=== PATIENT | female | born 1945 | race Caucasian/White ===

== ENCOUNTER 2018-06-04 17:10 | Emergency (ER) | payer OTHER, SELFPAY ==
[2018-06-04 17:15] VITALS: BP 157/76; PULSE 94; RESP 18; TEMP 36.5; O2SAT 98
--- NOTE | 2018-06-04 17:35 | DI.RAD_ITS ---
SYMPTOM/DIAGNOSIS: COUGH, SOB, ? PNEUMONIA FRONTAL AND LATERAL CHEST: No priors. Heart size and pulmonary vasculature are within normal limits. The lungs are clear. No effusion or pneumothorax is identified. There is a severe S type scoliosis of the thoracolumbar spine. IMPRESSION: No acute pulmonary process.
--- NOTE | 2018-06-04 17:36 | ED.GENADUL_ITS ---
Discharge Plan Disposition Patient Disposition: HOME Condition: Improving Discharge Details Chief Complaint: RespSymp Clinical Impression: Acute asthmatic bronchitis Primary Care Provider: Geeta Bridges ED Provider: Alina King Home Meds and New Rx's Prescriptions: New prednisone 20 mg tablet See Rx Instructions .ROUTE .COMPLEX Qty: 12 RF: 0 albuterol sulfate 90 mcg/actuation HFA aerosol inhaler 2 inh IH Q6H PRN (Reason: shortness of breath or wheezing) Qty: 8.5 RF: 0 albuterol sulfate 2.5 mg /3 mL (0.083 %) solution for nebulization 2.5 mg IH QID PRN (Reason: shortness of breath or wheezing) Qty: 75 RF: 0 Continued levothyroxine [Synthroid] 88 mcg Tablet 88 mcg PO DAILY RF: 0 hydrochlorothiazide 12.5 mg Tablet 12.5 mg PO DAILY RF: 0 colestipol 1 gram Tablet 2 g PO DAILY RF: 0 aspirin [Aspirin Low Dose] 81 mg Tablet,Delayed Release (Dr/Ec) 81 mg PO DAILY RF: 0 ibuprofen 600 mg Tablet 600 mg PO TID PRNRF: 0 Discontinued albuterol sulfate [Proventil HFA] 90 mcg/actuation Hfa Aerosol Inhaler 2 puff Inhalation Q4H PRNRF: 0 Discharge Instructions Instructions: Acute Bronchitis (ED) Additional Instructions: Use your albuterol inhaler as needed and directed for shortness of breath or wheezing. Take the steroids until finished. Follow-up with your primary care doctor in 3 days for reevaluation. Return immediately to the emergency department any worsening or new concerning symptoms. Discharge Data Discharge Physician: Alina King Medical Decision Making 72-year-old female with a history of asthma who presents for dry cough for the past week and an episode of shortness of breath with a coughing fit today. Heart rate 94, normal oxygen saturation, respiratory rate and afebrile. Patient appears nontoxic, speaking in full sentences. Scattered wheezing and rhonchi throughout. No accessory muscle use. Differential diagnosis includes bronchitis, asthma exacerbation, pneumonia. She denies any known fever, vomiting or diarrhea so doubt influenza and she received a flu shot. Will give a DuoNeb, p.o. steroids and obtain a chest x-ray. 1819 --chest x-ray negative. Patient admits to worsening shortness of breath after first neb treatment. She is speaking in full sentences, no accessory muscle use. Will give a 5 mg neb and reassess. 1910 --patient states she is feeling much better. Breath sounds improved. Patient is requesting to go home. She does not have a nebulizer machine at home. Will call sugar refinery supervisor to see if we can send patient home with a nebulizer machine to then return to the hospital. Will send home with prescription for albuterol solution, prednisone. Patient states she has plenty of albuterol inhaler at home. She is instructed to follow-up with primary care doctor for reevaluation and return here at any time if worse. Medical Records Medical records reviewed: Yes I reviewed the patient's medical records. Imaging Data Radiologic Study: Radiologist's impression: XR Chest, 2 Views EXAM DATE/TIME: 06/04/2018 6:04 PM FINDINGS: The cardiomediastinal silhouette and pulmonary vasculature are within normal limits. The lungs are clear. No pleural effusion or pneumothorax is identified. Severe scoliosis of the thoracic and lumbar spine. IMPRESSION: No acute process. HPI General Mode of arrival: ambulatory . Date/Time Provider Initiated Documentation: 06/04/18 17:15 . Limitations to Documentation: no limitations . Information obtained by: patient . HPI Narrative: Patient is a 70-year-old female with a history of asthma, hypertension, hyperlipidemia who presents for cough for the past week and episode of shortness of breath today. Patient states her cough was initially reductive and with chest congestion but now is dry. She admits to previously having a sore throat runny nose but states is now resolved. Patient states she had an episode today where she had a coughing fit and became short of breath. She admits to some mild shortness of breath at present. She states she did receive a flu shot this year. She denies any known fever, chest pain, recent antibiotics, vomiting or diarrhea. She has been using [id number] cough and cold medication as well as her inhaler without relief. Related Data Home Medications Medication Instructions Recorded Confirmed albuterol sulfate 2 inh IH Q6H PRN #8.5 gm 06/04/18 albuterol sulfate 2.5 mg IH QID PRN #75 ml 06/04/18 aspirin [Aspirin Low Dose] 81 mg PO DAILY 06/04/18 06/04/18 colestipol 2 g PO DAILY 06/04/18 06/04/18 hydrochlorothiazide 12.5 mg PO DAILY 06/04/18 06/04/18 ibuprofen 600 mg PO TID PRN 06/04/18 06/04/18 levothyroxine [Synthroid] 88 mcg PO DAILY 06/04/18 06/04/18 prednisone See Rx Instructions .ROUTE 06/04/18 .COMPLEX #12 tab Previous Rx's Medication Instructions Recorded albuterol sulfate 2 inh IH Q6H PRN #8.5 gm 06/04/18 albuterol sulfate 2.5 mg IH QID PRN #75 ml 06/04/18 prednisone See Rx Instructions .ROUTE 06/04/18 .COMPLEX #12 tab Allergies Allergy/AdvReac Type Severity Reaction Status Date / Time levothyroxine AdvReac Intermediate rapid Unverified 06/04/18 17:20 heart rate losartan AdvReac Mild dizziness Unverified 06/04/18 17:20 even at low dose General Stated Complaint: RespSymp ASHLEY: 3 Review of Systems Review of Systems All systems reviewed & are unremarkable except as noted in HPI and below Constitutional Reports as per HPI, Denies chills and Denies fever(s) Eyes Denies blurry vision ENT Denies dizziness, Denies sore throat and Denies throat swelling Cardiovascular Denies chest pain and Reports dyspnea Respiratory Reports cough and Reports dyspnea Gastrointestinal Denies abdominal pain, Denies diarrhea and Denies vomiting Genitourinary Denies hematuria and Denies dysuria Musculoskeletal Denies back pain and Denies numbness Integumentary/Breasts Denies lesions and Denies rash Neurologic Denies dizziness, Denies focal weakness and Denies numbness Allergic/Immunologic Denies throat swelling FOR[facility]LY [facility] Medical History Basal cell carcinoma (Acute) Hyperlipemia (Acute) Asthma (Chronic) HTN (hypertension) (Chronic) Surgical History History of bilateral tubal ligation (Acute) Hx of cholecystectomy (Chronic) Social History Smoking and Tabacco status: Never alcohol intake: current alcohol intake frequency: holidays/special occasions only substance use type: does not use Exam Const General: cooperative and healthy appearing Orientation: alert and awake HENNC Head: normal to inspection Ears: hearing grossly normal bilaterally, external ears normal and TM's normal bilaterally General nose exam: external nose normal Face and sinus: normal facial exam Mouth: oral mucosae normal Teeth and gingiva: dentition normal Throat: posterior oropharynx normal Eyes General: appearance normal, both eyes and all related structures Eyelids: eyelids normal EOM: EOM intact bilaterally Neck Neck: normal visual inspection Lymphatic: no lymphadenopathy noted Chest Chest: normal inspection of the chest Resp Effort & Inspection: normal respiratory effort and able to speak in complete sentences Auscultation: rhonchi upper bilaterally and lower bilaterally and wheezes lower bilaterally and upper bilaterally Cardio Rate: regular rate Rhythm: regular rhythm GI Inspection: normal to inspection Palpation: soft, not firm, no guarding, no hepatosplenomegaly, no masses and nontender Auscultation: normal bowel sounds Skin General skin exam: no rashes or lesions noted Neuro General: alert and awake Cognition: normal cognition Speech: speech normal Gait: normal gait Motor: muscle tone normal throughout Sensory Exam: no sensory deficits noted Extrem General: normal to inspection, full ROM, normal capillary refill and no edema Psych Appearance: grossly normal Mental Status: mental status grossly normal Speech and Movement: speech and movement normal Affect: normal affect Thought Process: normal Course Vital Signs Temperature 97.7 F 06/04/18 17:15 Pulse 94 H 06/04/18 17:15 Respiratory Rate 18 06/04/18 17:15 Blood Pressure 157/76 H 06/04/18 17:15 Pulse Oximetry 98 06/04/18 17:15 Temperature 97.7 F 06/04/18 17:15 Temperature Source Skin 06/04/18 17:15 Pulse 94 H 06/04/18 17:15 Respiratory Rate 18 06/04/18 17:15 Blood Pressure 157/76 H 06/04/18 17:15 Blood Pressure Position Sitting 06/04/18 17:15 Pulse Oximetry 98 06/04/18 17:15 Oxygen Delivery Method Room Air 06/04/18 17:15 Oxygen Flow Rate 0 06/04/18 17:15 Pain Level 7 06/04/18 17:15
[2018-06-04] MEDS: Albuterol/Ipratropium 3 ML UPD VIAL UPD (17:41)
[2018-06-04] MEDS: predniSONE 20 MG TAB 60 MG PO (17:41)
--- NOTE | 2018-06-04 18:11 | DI.VRAD_ITS ---
EXAM: XR Chest, 2 Views EXAM DATE/TIME: 06/04/2018 6:04 PM CLINICAL HISTORY: 72 years old, female; Signs and symptoms; Cough and shortness of breath; Patient HX: Cough, SOB; Additional info: R/O pneumonia TECHNIQUE: XR of the chest, 2 views. COMPARISON: No relevant prior studies available. FINDINGS: The cardiomediastinal silhouette and pulmonary vasculature are within normal limits. The lungs are clear. No pleural effusion or pneumothorax is identified. Severe scoliosis of the thoracic and lumbar spine. IMPRESSION: No acute process. Dictated and Authenticated by: Ivan Zhang MD. Ordering:LEIGH Fuller MD
[2018-06-04] MEDS: Albuterol 2.5 MG/3 ML INH SOLN VIAL 5 MG UPD (18:25)
[2018-06-04 19:26] VITALS: BP 153/67; PULSE 88; RESP 16; TEMP 36.7; O2SAT 100
== END 2018-06-04 19:46 | disposition home or self-care (01) ==
PROVIDERS: Emergency Provider Physician Assistant; PCP Family Medicine
DX: J44.0 Chronic obstructive pulmonary disease with (acute) lower respiratory infection (principal); J20.9 Acute bronchitis, unspecified; J45.909 Unspecified asthma, uncomplicated; R06.02 Shortness of breath; I10 Essential (primary) hypertension
CPT/HCPCS: 94640; 99285; 71046; J7512; J7613; J7620

== ENCOUNTER 2020-04-28 04:24 | Emergency (ER) | payer MEDICARE, BC, SELFPAY ==
[2020-04-28] VITALS (29 sets, daily range): BP systolic 123–140; BP diastolic 63–104; PULSE 65–91; RESP 11–36; TEMP 36.6; O2SAT 82–100
--- NOTE | 2020-04-28 04:15 | RT.EKG_ITS ---
APPROVED REPORT Exam: Resting ECG Patient Location: E HR:79 bpm ECG Measurements Heart Rate 79 AXIS MD 227 P 38 QRSd 137 QRS -28 QT 430 T 22 QTc 495 Conclusion Sinus rhythm...normal P axis, V-rate 60- 99 Prolonged MD interval...MD >220, V-rate 50- 90 Probable anterior infarct, age indeterminate...Q >35mS, T neg, V2-V5 Physician: Rate 79, sinus rhythm, RSR prime in V1, V4, V5. Inverted T waves in V3. No significant S T elevation or depression. No evidence of STEMI. No prior EKG for comparison
--- NOTE | 2020-04-28 04:40 | W.ED.GENAD ---
Discharge Plan Disposition Patient Disposition: HOME Condition: Good Discharge Details Clinical Impression: Heart palpitations Primary Care Provider: Geeta Bridges ED Provider: Brannon Richardson Home Meds and New Rx's Prescriptions: Continued levothyroxine [Synthroid] 88 mcg Tablet 88 mcg PO DAILY RF: 0 hydrochlorothiazide 12.5 mg Tablet 12.5 mg PO DAILY RF: 0 colestipol 1 gram Tablet 2 g PO DAILY RF: 0 aspirin [Aspirin Low Dose] 81 mg Tablet,Delayed Release (Dr/Ec) 81 mg PO Q OTHER DAY RF: 0 ibuprofen 600 mg Tablet 600 mg PO TID PRNRF: 0 albuterol sulfate 90 mcg/actuation HFA aerosol inhaler 2 inh IH Q6H PRN (Reason: shortness of breath or wheezing) Qty: 8.5 RF: 0 Vitamin D3 100 mcg (4,000 unit) Capsule 4,000 unit PO DAILY RF: 0 Discharge Instructions Instructions: Heart Palpitations (ED) Additional Instructions: At this time your work-up shows no significant abnormality however you are having regular premature ventricular contractions. We will place a heart monitor to help further evaluate this and evaluate for any other potential dysrhythmias. At this time your thyroid function, electrolytes, and other heart markers are within normal limits. We will place a cardiology referral for you, but this time may take some time for an opening. Please follow-up closely with your primary care provider in the meantime. If you notice any worsening of your symptoms, or any new symptoms such as vomiting, diarrhea, fever, chills, shortness of breath, chest pain, numbness, weakness, or fainting , please return immediately to the emergency department for reevaluation. Please follow up with your primary care provider as soon as possible for reassessment and reevaluation. As always, it was a pleasure participating in your medical care today. Referrals: Geeta Bridges [Primary Care Provider] - Landen Martin MD [MD CONSULTING PHYSICIAN] - Medical Decision Making 74-year-old female with a past medical history of hypothyroidism, asthma, hypertension, high cholesterol, presents today for evaluation of palpitations. The patient states that for the last 5 days she has had intermittent palpitations, usually lasting a minute, and happening multiple times throughout the day. She gets slightly short of breath when they occur, but has no chest pain or chest tightness. Her symptoms resolve when the palpitation resolves. She describes this as a large thump followed by a brief fluttering in her chest. She denies any arm neck or shoulder pain. She denies any syncope, change in her diet, change in caffeine intake, or any recent alcohol intake. She denies any previous history of cardiac disease. She denies any pleuritic chest pain, generalized exertional dyspnea, or exertional chest pain. She has no other complaints at this time. She denies any change of her symptoms with activity or rest. She states that she is more aware of the symptoms during the day, but they do occur at night as well. The patient's physical exam is notably unremarkable, no thyromegaly, no chest tenderness, and no evidence of dysrhythmia here in the ED at this time. EKG shows sinus rhythm, no evidence of STEMI. She does have a prolonged ID interval at 227, but no evidence that I can appreciate at this time of Brugada syndrome, epsilon wave, Dzbzb-Awayjjqve-Qyasu, or Wellens syndrome. We will monitor here closely, evaluate for electrolyte abnormalities, schedule the patient for Holter monitor, and reassess. 5:24 AM The patient's laboratory work-up is returned, no significant abnormalities, electrolytes are all within normal limits, renal function good, magnesium normal. Troponin normal, proBNP is normal suggesting no signs of significant cardiac strain. Thyroid function normal. During the patient stay here her palpitations did return, and on telemetry it appears that those were PVCs. Brief, no bigeminy or trigeminy. With the patient's work-up otherwise unremarkable, I do feel she can be discharged but does require prompt follow-up and Holter monitor placement. We will help schedule placement of this Holter monitor. We will place a referral for cardiology, as well as recommend close PCP follow-up. At this time there is no evidence of acute life-threatening etiology, dysrhythmia, or myocardial infarction. Discussed red flags which to return. I have extensively reviewed the treatment plan and discharge instructions with the patient. I have addressed all patient concerns at this time. The patient was made aware of what symptoms to monitor for that would warrant a return to the emergency department. Discussed the plan with the patient, they demonstrate verbal understanding and agreement with our assessment and plan at this time. The documentation in this chart was dictated using [employer] dictation software. Please excuse any dictation errors. EKG 4: 33 Rate 79, sinus rhythm, RSR prime in V1, V4, V5. Inverted T waves in V3. No significant ST elevation or depression. No evidence of STEMI. No prior EKG for comparison HPI General Date/Time Provider Initiated Documentation: 04/28/20 04:26. HPI Narrative: 74-year-old female with a past medical history of hypothyroidism, asthma, hypertension, high cholesterol, presents today for evaluation of palpitations. The patient states that for the last 5 days she has had intermittent palpitations, usually lasting a minute, and happening multiple times throughout the day. She gets slightly short of breath when they occur, but has no chest pain or chest tightness. Her symptoms resolve when the palpitation resolves. She describes this as a large thump followed by a brief fluttering in her chest. She denies any arm neck or shoulder pain. She denies any syncope, change in her diet, change in caffeine intake, or any recent alcohol intake. She denies any previous history of cardiac disease. She denies any pleuritic chest pain, generalized exertional dyspnea, or exertional chest pain. She has no other complaints at this time. She denies any change of her symptoms with activity or rest. She states that she is more aware of the symptoms during the day, but they do occur at night as well. Related Data Home Medications Medication Instructions Recorded Confirmed albuterol sulfate 2 inh IH Q6H PRN #8.5 gm 06/04/18 04/28/20 aspirin [Aspirin Low Dose] 81 mg PO Q OTHER DAY 06/04/18 04/28/20 colestipol 2 g PO DAILY 06/04/18 04/28/20 hydrochlorothiazide 12.5 mg PO DAILY 06/04/18 04/28/20 ibuprofen 600 mg PO TID PRN 06/04/18 04/28/20 levothyroxine [Synthroid] 88 mcg PO DAILY 06/04/18 04/28/20 Vitamin D3 4,000 unit PO DAILY 04/28/20 04/28/20 Previous Rx's Medication Instructions Recorded albuterol sulfate 2 inh IH Q6H PRN #8.5 gm 06/04/18 Allergies Allergy/AdvReac Type Severity Reaction Status Date / Time levothyroxine AdvReac Intermediate rapid Unverified 04/28/20 04:43 heart rate losartan AdvReac Mild dizziness Unverified 04/28/20 04:35 even at low dose General Stated Complaint: Palpitatns ASHLEY: 2 Review of Systems All systems reviewed & are unremarkable except as noted in HPI and below PFSH Medical History (Updated 04/28/20 @ 05:27 by Brannon Richardson DO) Asthma Basal cell carcinoma HTN (hypertension) Hyperlipemia Surgical History History of bilateral tubal ligation Hx of cholecystectomy Social History Smoking/Tobacco Use Status: Never Smoking risk assessment performed?: Yes Alcohol Intake: current Alcohol Intake frequency: holidays/special occasions only Substance use type: does not use Do you feel safe at home: Yes Do you feel safe in your relationship?: Yes Exam Narrative Exam Narrative: 1.Const: Well-nourished, Well-developed, appearing stated age 2.Eyes: PERRL, no conjunctival injection, and symmetrical lids. 3.ENT: Atraumatic external nose and ears. Moist MM. Neck: Symmetric, trachea midline, No thyromegaly. 4.CVS: +S1/S2, No murmurs or gallops. Peripheral pulses 2+ and equal in all extremities. Brisk capillary refill in all extremities. 5.RESP: Unlabored respiratory effort. Clear to auscultation bilaterally. No wheezes rales or rhonchi 6.GI: Soft, Nontender/Nondistended, No hepatosplenomegaly. No guarding or rebound. 7.MSK: Normocephalic/Atraumatic, Extremities w/o deformity or ttp No cyanosis or clubbing, Normal movement of all extremities 8.Skin: Warm, Dry. No rashes or lesions. 9.Neuro: master technician II-XII grossly intact. Sensation grossly intact, no focal neurologic deficits. 10.Psych: (AAO) x3. Appropriate mood and affect Course Vital Signs Vital signs: Vital Signs Temperature 36.6 C 04/28/20 04:27 Pulse 84 04/28/20 04:27 Respiratory Rate 20 04/28/20 04:27 Blood Pressure 123/104 H 04/28/20 04:27 Pulse Oximetry 99 04/28/20 04:27 Temperature 36.6 C 04/28/20 04:27 Pulse 84 04/28/20 04:27 Respiratory Rate 20 04/28/20 04:27 Blood Pressure 123/104 H 04/28/20 04:27 Pulse Oximetry 99 04/28/20 04:27 Oxygen Delivery Method Room Air 04/28/20 04:27 Oxygen Flow Rate 0 04/28/20 04:27 Pain Level 0 04/28/20 04:27
[2020-04-28 04:50] LABS: Abs Immature Grans 0.01 10^3/uL (0.0-0.06); Absolute Basophil Count 0.04 10^3/uL (0.0-0.2); Absolute Eosinophil Count 0.27 10^3/uL (0.0-0.7); Absolute Lymphocyte Count 2.92 10^3/uL (1.2-3.4); Absolute Monocyte Count 0.67 10^3/uL (0.1-0.8); Absolute Neutrophil Count 4.14 10^3/uL (1.2-6.7); Basophils % 0.5; Eosinophils % 3.4; HCT 41.2 % (36.0-46.0); HGB 13.2 g/dL (11.2-15.7); Immature Grans % 0.1; Lymphocytes % 36.3; MCH 29.4 pg (27.0-33.0); MCV 91.8 fL (80-95); MPV 10.1 fL (8.0-11.0); Monocytes % 8.3; Neutrophils % 51.4; Nucleated RBC 0 %; Platelet Count 267 10^3/uL (130-400); RBC 4.49 10^6/uL (3.93-5.22); RDW 12.9 % (11.7-14.6); RDW-SD 43.8 fL; WBC 8.05 10^3/uL (4.4-10.8)
[2020-04-28 05:07] LABS: ALT 24 U/L (14-59); AST 11 U/L (15-37); Albumin 3.4 g/dL (3.4-5.0); Alkaline Phosphatase 115 U/L (46-116); Anion Gap 6.1 mmol/L (3-11); BUN 14 mg/dL (7-18); Bilirubin, Total 0.4 mg/dL (0.2-1.0); CO2 28.9 mmol/L (21.0-32.0); CREATININE 0.9 mg/dL (0.55-1.02); Calcium 8.9 mg/dL (8.5-10.1); Chloride 102 mmol/L (98-107); Glucose 119 mg/dL (74-106); Magnesium 1.9 mg/dL (1.8-2.4); Potassium 3.6 mmol/L (3.5-5.1); Sodium 137 mmol/L (136-145); Total Protein 7.8 g/dL (6.4-8.2)
[2020-04-28 05:15] LABS: NT-proBNP 56 pg/mL (<300); TSH 2.14 uIU/mL (0.36-3.74)
[2020-04-28 05:17] LABS: Troponin I < 0.05 ng/mL (<0.06)
--- NOTE | 2020-04-28 05:35 | NUR.NOTE ---
sent referral to cardiology for frequent palpitations and pvc' s Rafi EDNamanda Note:
--- NOTE | 2020-04-28 07:15 | HOLTER_ITS ---
APPROVED REPORT Exam Type: HOLTER MONITOR APPLICATION Reason for Test: PALPITATIONS Patient Location: E Conclusion Is a 48-hour monitor ordered for indication of PVCs. The patient was in normal sinus rhythm for the majority the recording with an average heart rate of 7 5 bpm. There were rare PACs and rare PVCs. There were no episodes of ventricular tachycardia nor any episodes of supraventricular tachycardia. There are no episodes of atrial fibrillation, no pauses greater than 3 seconds and no evidence of hig h degree heart block. There were no patient triggered events.
== END 2020-04-28 08:08 | disposition home or self-care (01) ==
PROVIDERS: Emergency Provider Student in an Organized Health Care Education/Training Program; PCP Family Medicine
DX: R00.2 Palpitations (principal); I49.3 Ventricular premature depolarization
CPT/HCPCS: 36415; 80053; 93005; 99284; 83735; 83880; 84443; 84484; 85025; 93010; 93225

== ENCOUNTER 2020-04-28 07:03 | Outpatient (RCR) | payer MEDICARE, SELFPAY | END 2020-04-29 23:59 | disposition home or self-care (01) | LOC: RT 07:03 | PROVIDERS: PCP Family Medicine; Visit Provider Student in an Organized Health Care Education/Training Program | DX: R00.2 Palpitations (principal); I49.3 Ventricular premature depolarization; I49.1 Atrial premature depolarization | CPT/HCPCS: 93225; 93226 ==

== ENCOUNTER 2020-06-07 01:31 | Outpatient (CLI) | payer BC, SELFPAY ==
--- NOTE | 2020-06-07 07:00 | DI.RAD_ITS ---
EXAM: XR LUMBAR SPINE COMPLETE CLINICAL HISTORY: lumbar back pain,M54.16. TECHNIQUE: 2D digital imaging was performed. COMPARISON: No exams were available for comparison FINDINGS: There is a marked left convex scoliosis of the lumbar spine. Moderately severe degenerative changes are present throughout the lumbar spine with disc space narrowing, subchondral sclerosis and endplate osteophytes. No acute fracture is appreciated. Bones appear osteopenic. IMPRESSION: 1. Marked left convex scoliosis of the thoracolumbar spine. 2. Moderately severe degenerative changes in the lumbar spine. DATA REPOSITORY: RADIATION DOSE DELIVERED:
--- NOTE | 2020-06-07 07:00 | DI.RAD_ITS ---
EXAM: XR HIP RT COMPLETE AP PELVIS CLINICAL HISTORY: right hip pain,M25.551. TECHNIQUE: 2D digital imaging was performed. COMPARISON: No exams were available for comparison FINDINGS: BONES: No acute fracture is present. No bony destructive lesion is seen. JOINTS: In the hips, moderate degenerative changes are present with joint space narrowing and periart icular spurring present. Mild degenerative changes are seen at the sacroiliac joints. No dislocatio n is present. SOFT TISSUE: Normal. IMPRESSION: Moderate degenerative changes of the hips. DATA REPOSITORY: RADIATION DOSE DELIVERED:
== END 2020-06-07 01:51 ==
PROVIDERS: PCP Nurse Practitioner Family; Visit Provider Nurse Practitioner Family
DX: M41.85 Other forms of scoliosis, thoracolumbar region (principal); M47.816 Spondylosis without myelopathy or radiculopathy, lumbar region; M16.0 Bilateral primary osteoarthritis of hip
CPT/HCPCS: 72110; 73502

== ENCOUNTER 2020-07-25 03:29 | Outpatient (CLI) | payer MEDICARE, SELFPAY ==
[2020-07-25 12:47] LABS: Calculated LDL 161 mg/dL (<100); Cholesterol 248 mg/dL (<200); HDL Cholesterol 63 mg/dL (40-60); Triglyceride 123 mg/dL (<150)
[2020-07-25 12:58] LABS: Hemoglobin A1C 5.4 % (<5.7)
== END 2020-07-25 03:30 | disposition home or self-care (01) ==
PROVIDERS: PCP Nurse Practitioner Family; Visit Provider Nurse Practitioner Family
DX: E78.5 Hyperlipidemia, unspecified (principal); R73.09 Other abnormal glucose
CPT/HCPCS: 36415; 80061; 83036

== ENCOUNTER 2020-08-22 02:12 | Outpatient (CLI) | payer MEDICARE, SELFPAY ==
--- NOTE | 2020-08-22 10:14 | DI.US_ITS ---
APPROVED REPORT EXAM: Comprehensive 2D, Doppler, and color-flow Echocardiogram Patient Location: Out-Patient Infectious Disease Physician: Bobbi Frias RDCS (AE) Indications: Palpitations, HTN Other Information Study Quality: Adequate Conclusion Left Ventricle : The left ventricle is normal size. The left ventricular systolic function is normal. The left ventricular ejection fraction is within the normal range. There is normal left ventricular wall thickness. There is normal LV segmental wall motion. The left ventricular diastolic function is normal. LVEF is 58%. Right Ventricle : The right ventricle is normal size. The right ventricular systolic function is norm al. The RVSP is 22.4 mmHg. Atria : The left atrium size is normal. The right atrium size is normal. Valves: There are no hemodynamically significant valvular lesions. Great Vessels : The aortic root is normal in size. The ascending aorta is mildly dilated. Aortic arch is normal in caliber. IVC is normal in size and collapses >50% with inspiration. Please see remainder of study for further details. Wall motion Left Ventricle The left ventricle is normal size. The left ventricular systolic function is normal. The left ventric ular ejection fraction is within the normal range. There is normal left ventricular wall thickness. T here is normal LV segmental wall motion. The left ventricular diastolic function is normal. There is no ventricular septal defect visualized. LVEF is 58%. Right Ventricle The right ventricle is normal size. The right ventricular systolic function is normal. The RVSP is 22 .4 mmHg. Atria The left atrium size is normal. The right atrium size is normal. The interatrial septum is intact wit h no evidence for an atrial septal defect. Aortic Valve The aortic valve is normal in structure. Aortic valve is trileaflet. There is no aortic valvular sten osis. Trace aortic regurgitation. Mitral Valve The mitral valve is normal in structure. No evidence of mitral valve stenosis. Trace mitral regurgita tion. Tricuspid Valve The tricuspid valve is normal in structure. There is no tricuspid valve stenosis. Mild tricuspid regu rgitation. Pulmonic Valve The pulmonary valve is normal in structure. There is no pulmonic valvular stenosis. Trace pulmonic re gurgitation. Great Vessels The aortic root is normal in size. The ascending aorta is mildly dilated. Aortic arch is normal in ca liber. IVC is normal in size and collapses >50% with inspiration. Pericardium There is no pericardial effusion. 2D Dimensions IVSD d PLAX 1.04 cm F: 0.6-1.0 LV Vol A2C d MOD 85.8 mL LVPW d PLAX 1.03 cm F: 0.6 - 1.0 LV Vol A4C d MOD 98.5 mL LVID d PLAX 4.41 cm F: 3.8 - 5.2 LA vol/ BSA A2C s A-L 25.8 mL/m2 LVDs 3.10 cm F: 2.2 - 3.5 LA vol/ BSA A4C s A-L 20.8 mL/m2 Ao Root d 3.18 cm F: 2.7 - 3.3 LA Vol/ BSA Biplane s A-L 23.9 mL/m2 RA Area A4C 10.04 cm2 LA Area A4C s MOD 15.29 cm2 RA Vol/ BSA A4C s A-L 11.7 mL/m2 LA Area A2C s MOD 16.51 cm2 Ao Asc Diam d 3.32 cm F: 2.3 - 3.1 LV EF A4C MOD 58.2 % LV EF Teichholz 56.7 % LV EF A2C MOD 56.6 % LVEF (Woodward's) 57.20 % F: 54 - 74 LV EF Biplane MOD 57.2 % LV Volume 71.88 mL F: 46 - 106 SV 52.84 mL LV Volume Index 40.15 mL/m2 F: 29 - 61 SV Index 29.40 mL/m2 LV Vol Biplane MOD 92.4 mL FS 29.50 % M-Mode TAPSE 1.88 cm (M/F) >1.7 LV Diastology MV E' medial 0.066 (>0.07 m/s) E/A Ratio 0.7 LV E/e MED 8.55 (<14) MV E Vmax 0.56 (0.4-1.3 m/s) MV E' lateral 0.071 (>0.1 m/s) MV A Vmax 0.75 (0.4-1.3 m/s) LV E/e LAT 7.85 (<14) MV E/A Ratio 0.71 MV E/E' medial 8.56 MV E/E' lateral 7.85 Aortic Valve LVOT Area 3.37 cm2 AoV Area Vmax 2.65 cm2 LVOT Vmax 0.75 m/s AoV Area/ BSA (Vmax) 1.47 cm2/m2 LVOT Mean Kirt. 0.49 m/s MADI Mean Kirt. 2.14 cm2 LVOT Peak Grad 2.3 mmHg MADI Mean Kirt. Index 1.19 cm2/m2 LVOT Mean Grad 1.1 mmHg LVOT VTI 0.172 m LVOT Diam s 2.05 cm AoV Vmax 0.95 m/s Velocity Ratio 0.78 AoV Mean Kirt. 0.77 m/s AoV Peak Grad 3.6 mmHg LVOT SV 57.79 mL AoV Mean Grad 2.5 mmHg AoV VTI 0.230 m AoV Area VTI 2.51 cm2 AoV Area/ BSA (VTI) 1.39 cm/m2 Mitral Valve MV DT 276 (160-240 msec) MV PHT 80 msec MV Area PHT 2.75 cm2 MV VTI 0.248 m MV VTI Annulus 0.256 m MV Area VTI 2.41 (4.0-6.0 cm2) Pulmonary Valve PV Vmax 0.90 (0.5-1.5 m/s) RVOT Peak Gr. 1.55 mmHg PV Peak Grad 3.2 mmHg RVOT Mean Gr. 0.80 mmHg PV Mean Grad 1.7 mmHg RVOT VTI 0.132 m PV VTI 0.208 m RVOT Vmax 0.62 m/s Tricuspid Valve TR Peak Grad 19.3 mmHg TR Vmax 2.20 m/s RA Pressure 3.00 mmHg RVSP (TR) 22.4 mmHg
== END 2020-08-22 02:32 ==
PROVIDERS: PCP Nurse Practitioner Family; Visit Provider Internal Medicine Cardiovascular Disease
DX: R00.2 Palpitations (principal); I10 Essential (primary) hypertension; I77.810 Thoracic aortic ectasia
CPT/HCPCS: 93306

== ENCOUNTER → 2020-08-28 10:35 | Outpatient (BNVA) | payer MEDICARE, SELFPAY | PROVIDERS: PCP Nurse Practitioner Family; Referring Provider Family Medicine; Visit Provider Internal Medicine Cardiovascular Disease | DX: E78.41 Elevated Lipoprotein(a) (principal); E78.2 Mixed hyperlipidemia; I10 Essential (primary) hypertension; R00.2 Palpitations; D68.2 Hereditary deficiency of other clotting factors; Z79.899 Other long term (current) drug therapy | CPT/HCPCS: 99214 ==

== ENCOUNTER 2021-02-06 02:47 | Outpatient (CLI) | payer MEDICARE, SELFPAY ==
[2021-02-06 11:25] LABS: Calculated LDL 171 mg/dL (<100); Cholesterol 260 mg/dL (<200); HDL Cholesterol 57 mg/dL (40-60); Triglyceride 161 mg/dL (<150)
[2021-02-06 11:26] LABS: TSH 1.41 uIU/mL (0.36-3.74)
== END 2021-02-06 02:48 | disposition home or self-care (01) ==
LOC: LBO 02:47
PROVIDERS: PCP Nurse Practitioner Family; Visit Provider Nurse Practitioner Family
DX: E78.5 Hyperlipidemia, unspecified (principal); E03.9 Hypothyroidism, unspecified
CPT/HCPCS: 36415; 80061; 84443

== ENCOUNTER 2021-06-03 04:34 | Outpatient (CLI) | payer MEDICARE, SELFPAY ==
[2021-06-03 14:25] LABS: ESR 22 mm/hr (0-30); HCT 40.8 % (36.0-46.0); HGB 12.8 g/dL (11.2-15.7); MCH 28.8 pg (27.0-33.0); MCHC 31.4 % (32.0-36.0); MCV 91.7 fL (80-95); MPV 10.3 fL (8.0-11.0); Platelet Count 256 10^3/uL (130-400); RBC 4.45 10^6/uL (3.93-5.22); RDW 13.6 % (11.7-14.6); RDW-SD 46.2 fL
[2021-06-03 16:15] LABS: Folate 11.6 ng/mL (8.6-20.0)
[2021-06-04 14:55] LABS: Vitamin B12 243 pg/mL (193-986)
== END 2021-06-03 04:35 | disposition home or self-care (01) ==
LOC: LBO 04:34
PROVIDERS: PCP Nurse Practitioner Family; Visit Provider Nurse Practitioner Family
DX: R53.83 Other fatigue (principal); R53.1 Weakness
CPT/HCPCS: 36415; 85027; 85652; 82607; 82746

== ENCOUNTER → 2021-09-02 09:28 | Outpatient (BNVA) | payer MEDICARE, SELFPAY | PROVIDERS: PCP Nurse Practitioner Family; Referring Provider Nurse Practitioner Family; Visit Provider Internal Medicine Cardiovascular Disease | DX: I10 Essential (primary) hypertension (principal); E78.5 Hyperlipidemia, unspecified | CPT/HCPCS: 99213 ==

== ENCOUNTER → 2021-09-02 13:22 | Outpatient (BNVA) | payer MEDICARE, SELFPAY | PROVIDERS: PCP Nurse Practitioner Family; Referring Provider Nurse Practitioner Family; Visit Provider Psychiatry & Neurology Neurology | DX: R55 Syncope and collapse (principal) | CPT/HCPCS: 99214; 99213 ==

== ENCOUNTER 2021-12-11 01:42 | Outpatient (CLI) | payer MEDICARE, SELFPAY ==
[2021-12-11 11:10] LABS: TSH (W/Ref FT4) 2.22 uIU/mL (0.36-3.74)
== END 2021-12-11 01:43 | disposition home or self-care (01) ==
LOC: LBO 01:42
PROVIDERS: PCP Nurse Practitioner Family; Visit Provider Nurse Practitioner Family
DX: E03.9 Hypothyroidism, unspecified (principal)
CPT/HCPCS: 36415; 84443

== ENCOUNTER 2022-04-29 01:28 | Outpatient (CLI) | payer MEDICARE, SELFPAY ==
--- NOTE | 2022-04-29 07:00 | DI.RAD_ITS ---
Exam(s) XR FINGER LT RING EXAM: XR FINGER LT RING EXAM DATE/TIME: CLINICAL HISTORY: continued pain/swelling of DIP joint,m79.645. TECHNIQUE: 2D digital imaging was performed of the left finger. Three views were obtained. PA/AP, oblique, and lateral views were obtained. COMPARISON: None. FINDINGS: BONES: No acute fracture is present. No bony destructive lesion is seen. JOINTS: No dislocation is present. There are degenerative changes seen of the left ring finger at th e DIP joint with joint space narrowing present. Mild bony hypertrophy is also noted. SOFT TISSUE: No soft tissue calcifications are seen. IMPRESSION: Degenerative changes of the left ring finger. DATA REPOSITORY: RADIATION DOSE DELIVERED:
== END 2022-04-29 01:48 ==
PROVIDERS: PCP Nurse Practitioner Family; Visit Provider Nurse Practitioner Family
DX: M79.645 Pain in left finger(s) (principal); M19.042 Primary osteoarthritis, left hand
CPT/HCPCS: 73140

== ENCOUNTER 2022-05-09 08:44 | Day surgery (SDC) | payer MEDICARE, SELFPAY ==
[2022-05-09 09:07] VITALS: BP 146/70; PULSE 75; RESP 16; TEMP 36.2; O2SAT 100
[2022-05-09] MEDS: Tropicam./Phenyleph. (1/2.5%) 5 ML BTL OS ×3 (09:14→09:28)
--- NOTE | 2022-05-09 09:22 | ANES.PREOP_ITS ---
General Info Date of Service Date Performed: 05/16/22 Height: 5 ft Weight: 83.3 kg Body Mass Index (BMI): 35.9 Surgical Procedure: Operation Date: 05/09/22 11:40 Proposed Procedure Side Surgeon p Cataract Extraction with IOL Implant Left Franklin Ramirez MD Meds Allergies and Home Medications Allergies Allergy/AdvReac Type Severity Reaction Status Date / Time adhesive tape Allergy Unknown skin Verified 05/09/22 09:03 blisters atorvastatin AdvReac Intermediate muscles Verified 05/09/22 09:03 aches levothyroxine AdvReac Intermediate rapid Verified 05/09/22 09:03 heart rate rosuvastatin AdvReac Intermediate muscle Verified 05/09/22 09:03 aches losartan AdvReac Mild dizziness Verified 05/09/22 09:03 even at low dose acetaminophen [From Tylox] AdvReac Unknown severe Verified 05/09/22 09:03 stomach cramping oxycodone [From Tylox] AdvReac Unknown severe Verified 05/09/22 09:03 stomach cramping Generic Statins AdvReac Unknown severe Uncoded 05/07/22 13:21 stomach cramps/muscle aches/stiff joints Home Medication Medication Instructions Recorded cholecalciferol (vitamin D3) 100 4,000 unit PO DAILY 04/28/20 mcg (4,000 unit) capsule (Vitamin D3) fluocinonide 0.05 % topical cream 1 applic topical BID 05/28/20 aspirin 81 mg tablet,delayed 81 mg PO Q OTHER DAY 06/19/20 release loperamide 2 mg tablet (Imodium 1 mg PO DAILY PRN 06/19/20 A-D) omeprazole 20 mg tablet,delayed 20 mg PO DAILY 06/19/20 release clobetasol 0.05 % topical gel 1 applic topical .twice weekly 08/28/20 colestipol 1 gram tablet 2 g PO DAILY 08/28/20 acetaminophen 300 mg-codeine 15 mg 1 tab PO BID PRN pain #10 tabs 08/07/21 tablet albuterol sulfate 90 mcg/actuation 2 puff inhalation Q4H PRN 10/22/21 aerosol inhaler (ProAir HFA) bronchospasm #8.5 grams ibuprofen 600 mg tablet 600 mg PO TID PRN fever or pain 10/22/21 #60 tabs levothyroxine 88 mcg tablet 88 mcg PO DAILY #90 tabs 12/04/21 (Synthroid) hydrochlorothiazide 12.5 mg tablet 12.5 mg PO DAILY #90 tabs 05/07/22 lisinopril 5 mg tablet 5 mg PO DAILY #90 tabs 05/07/22 Current Visit Medications: Current Medications Generic Name Dose Route Start Last Admin Trade Name Freq PRN Reason Stop Dose Admin Miscellaneous Medication 0 ml 05/09/22 06:00 05/09/22 09:14 Tropicam./Phenyleph. 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 Personal history of colonic polyps ~11/18/18 Z86.010 Spondylosis of lumbar region without myelopathy or radiculopathy ~09/07/18 M47.816 Seborrhea ~08/01/18 L21.9 Left thyroid nodule ~09/02/17 E04.1 Thoracogenic scoliosis of thoracic region ~08/04/17 M41.34 Spinal stenosis of lumbar region with neurogenic claudication ~08/04/17 M48.062 Diverticulosis of large intestine without hemorrhage ~08/04/17 K57.30 Rectocele ~08/19/11 N81.6 HTN (hypertension) ~07/06/18 I10 Medical History Medical History Abnormal mammogram of left breast (~08/18/18) Asthma Basal cell carcinoma (~08/01/18) Factor V Leiden Full incontinence of feces (~09/22/17) History of vertigo (~09/02/17) Lichen sclerosus Pill dysphagia (~11/18/18) Retention cyst of tonsil (~04/22/18) Surgical History Surgical History H/O basal cell carcinoma excision (~1991) right arm 1992 left upper chest 12/2010 H/O colonoscopy (~2016) [facility] [place] [facility] 09/15/07 H/O rectocele repair (~09/26/11) H/O total hysterectomy with bilateral salpingo-oophorectomy (BSO) (~09/26/11) History of bilateral tubal ligation (~1976) History of esophagogastroduodenoscopy (EGD) (~01/10/19) Dr. Ferro History of surgical removal of ganglion cyst (~1994) Hx of biopsy (~2011) thyroid nodule Hx of cholecystectomy (~1967) Status post cervical polyp removal (~2011) 2004 and 2011 Tobacco Smoking/Tobacco Use Status: Never Passive smoking exposure: Yes Second hand exposure: Yes Alcohol Alcohol Intake: current Alcohol intake frequency: holidays/special occasions only Alcohol type: wine Substance Use Substance use: Never Substance use type: does not use Vital Signs and Lab Results Vital Signs Most Recent Vital Signs in EMR: Most Recent Vital Signs Temp Pulse Resp BP Pulse Ox 36.2 C L 75 16 146/70 H 100 05/09/22 09:07 05/09/22 09:07 05/09/22 09:07 05/09/22 09:07 05/09/22 09:07 Lab Results Blood Type / Crossmatch: No Data to Display Complete Blood Count: No Data to Display Complete Metabolic Panel: No Data to Display Liver Function Panel: No Data to Display Coagulation Panel: No Data to Display Cardiac Panel: No Data to Display Arterial Blood Gas: No Data to Display Venous Blood Gas: No Data to Display Pancreas Panel: No Data to Display Thyroid Panel: No Data to Display Infectious Disease: No Data to Display Blood Cultures: No Data to Display Toxicology Panel: No Data to Display Imaging and Studies Imaging and Studies Study information below may be from another EMR and interpreted by another provider. Please see original notes in EMR for more complete details. EKG Summary: 04/19 Conclusion Sinus rhythm...normal P axis, V-rate 60- 99 Prolonged WY interval...WY >220, V-rate 50- 90 Probable anterior infarct, age indeterminate...Q >35mS, T neg, V2-V5 Echocardiogram Summary: 08/17 Conclusion Left Ventricle : The left ventricle is normal size. The left ventricular systolic function is normal. The left ventricular ejection fraction is within the normal range. There is normal left ventricular wall thickness. There is normal LV segmental wall motion. The left ventricular diastolic function is normal. LVEF is 58%. Right Ventricle : The right ventricle is normal size. The right ventricular systolic function is normal. The RVSP is 22.4 mmHg. Atria : The left atrium size is normal. The right atrium size is normal. Valves: There are no hemodynamically significant valvular lesions. Great Vessels : The aortic root is normal in size. The ascending aorta is mildly dilated. Aortic arch is normal in caliber. IVC is normal in size and collapses >50% with inspiration. Please see remainder of study for further details. Wall motion Anesthesia Assessment and Plan Anesthesia History Personal History: No History of Anesthesia Complications Family History: No Family History of Anesthesia Complications Exercise Tolerance Exercise Tolerance: Metabolic Equivalents>4 Pertinent Negatives Pertinent Negatives: No Symptoms of GERD (med controlled), No Major Cardiovascular Symptoms or Complaints and No Major Pulmonary Symptoms or Complaints Cardiac & Pulmonary Exam Cardiac Exam: Normal S1/S2 Heart Sounds Pulmonary Exam: Clear Bilateral Breath Sounds Implantable Cardiac Device Does patient have a Pacemaker or an ICD?: No Airway Exam Known Difficult Airway: No Mallampati Class: 1 Mouth Opening: Normal (> 3cm) Thyromental Distance: Greater than 3 cm Neck Range of Motion: Full ROM Neck Circumference: Normal Teeth Condition: Normal Dentition and Removable Dentures/Plates Upper ASA Classification ASA Score: ASA 2 Emergency Case?: No NPO Status NPO Status: NPO Clears >2 hours, Solids >8 hours Anesthesia Plan Resuscitation Status: Full Code Anesthesia Technique: MAC Anesthesia Airway Planned: Natural Airway Monitors Used: Standard Monitors
[2022-05-09 09:33] VITALS: BMI 35.9
[2022-05-09] MEDS: Tetracaine 0.5% 4 ML BTL OS (10:32)
[2022-05-09] MEDS: Duovisc Viscoelastic System EACH 1 EACH (10:33)
[2022-05-09] MEDS: Balanced Salt Soln.-PLUS 500 ML BAG (10:33)
[2022-05-09] MEDS: Lidocaine 1% Pres-Free 5 ML VIAL (10:34)
[2022-05-09] MEDS: Lidocaine 2% Jelly 6 ML SYR (10:34)
[2022-05-09] MEDS: Povidone-Iodine Ophth 30 ML BTL (10:35)
[2022-05-09 10:50] VITALS: BP 137/65; PULSE 62; RESP 18; TEMP 36.5; O2SAT 100
--- NOTE | 2022-05-09 10:52 | W.PM.DSUDISC ---
Date of service: 05/09/22 Time of Service: 10:52 Discharge Plan Disposition Patient Disposition: Home Discharge Details Attending Provider: Franklin Ramriez Primary Care Provider: Chacho Lion Home Meds and New Rx's Prescriptions: No Action colestipol 1 gram tablet 2 g PO DAILY levothyroxine [Synthroid] 88 mcg tablet 88 mcg PO DAILY Qty: 90 3RF fluocinonide 0.05 % cream 1 applic topical BID clobetasol 0.05 % gel 1 applic topical .twice weekly acetaminophen-codeine 300-15 mg tablet 1 tab PO BID PRN (Reason: pain) Qty: 10 0RF omeprazole 20 mg tablet,delayed release (DR/EC) 20 mg PO DAILY loperamide [Imodium A-D] 2 mg tablet 1 mg PO DAILY PRN aspirin 81 mg tablet,delayed release (DR/EC) 81 mg PO Q OTHER DAY ibuprofen 600 mg tablet 600 mg PO TID PRN (Reason: fever or pain) Qty: 60 0RF albuterol sulfate [ProAir HFA] 90 mcg/actuation HFA aerosol inhaler 2 puff inhalation Q4H PRN (Reason: bronchospasm) Qty: 8.5 3RF Rx Instructions: every 4 to 6 hours hydrochlorothiazide 12.5 mg tablet 12.5 mg PO DAILY Qty: 90 3RF Hold Instructions: Feeling weak and woozy. Holding trial until 05/05/22. lisinopril 5 mg tablet 5 mg PO DAILY Qty: 90 3RF Vitamin D3 100 mcg (4,000 unit) Capsule 4,000 unit PO DAILY Discharge Instructions Stand Alone Forms: Post-op Topical CataractEstephania (DSU) Discharge Orders Discharge Orders: Discharge Order (Routine); Ordered 05/09/22 Ordered By: Franklin Ramirez DS: Diagnosis Discharge Diagnosis (1) Cortical cataract of left eye: Status: Resolved
--- NOTE | 2022-05-09 10:53 | ROE_ITS ---
Date of service: 05/09/22 Time of Service: 10:53 Operative Note Operative Note DATE OF PROCEDURE: 05/09/22 PRE-OP DIAGNOSIS: Cortical cataract, left eye POST-OP DIAGNOSIS: same PROCEDURE: Cataract extraction using phacoemulsification with intraocular lens implant, left eye SURGEON: Franklin Ramirez ANESTHESIA TYPE: Local By Surgeon and MAC Refer to Anesthesia Record PATHOLOGY: none sent COMPLICATIONS: None Patient was transported to: same day Patient's condition: stable Implants: Elias Clareon [id number] Indications: Progressive decreased vision due to cataract, left eye Procedure Description: CATARACT SURGERY OPERATIVE REPORT PREOPERATIVE DIAGNOSIS: Cortical cataract, left eye POSTOPERATIVE DIAGNOSIS: Same OPERATION: Cataract extraction using phacoemulsification with posterior chamber intraocular lens implant, left eye. IOL: IOL Manager Instrumentation/Model: Elias Clareon [id number] IOL Power: + 24.0 diopters IOL Serial Number: [id number] Optic Diameter: 6.0mm Haptic/Overall Diameter: 13.0mm PHACO INFO: Elias Offerialurion Vision System with OZil and Active Fluidics Cumulative Dispersed Energy (CDE): 11.15 seconds SURGEON: Franklin Ramirez MD, SONY ANESTHESIA: Monitored Anesthesia Care (MAC), with local sub-tenon's anesthetic infiltration COMPLICATIONS: None SPECIMENS: None INDICATIONS FOR PROCEDURE: The patient is a 76-year-old lady with history of diminished visual acuity in her left eye secondary to the development of significant cortical cataract. The option of cataract surgery was offered to the patient and she felt that her vision was significantly declined that she wished to proceed with cataract surgery of the left eye. PROCEDURE: The correct surgical eye was identified and marked as the left eye and the pupil was dilated in the preoperative area using mydriatics and cycloplegics. The dilated pupil size was 7.0 mm. The patient elected to proceed without oral sedation. The patient was brought to the operating room where cardiopulmonary monitoring was instituted and surgical time-out was performed, confirming the correct operative eye and IOL power. Topical anesthesia was administered and ophthalmic povidone-iodine 5% was instilled into the conjunctival fornices. Lidocaine gel was applied to the cornea and the shruthi-ocular area was prepped with Betadine 10% solution and draped in the usual sterile fashion for intraocular surgery, including an aperture drape. A Tegaderm transparent film dressing was cut in half and used to cover the lashes and lid margins. Care was taken to sequester the lashes and lid margins under the Tegaderm dressing. A lid speculum was placed between the lids of the operative eye and the Elias LuxOR Revalia operating microscope was maneuvered into position. Yomaira scissors were then used to make a conjunctival buttonhole approximately 6mm posterior to the limbus in the inferonasal quadrant. Blunt dissection was carried out to expose bare sclera, and a blunt-tipped sub-tenon?s anesthesia cannula was introduced and passed posteriorly along the globe where non- preserved plain lidocaine was injected into posterior sub-Tenon?s space. A sideport knife was used to make a paracentesis port superior/superiortemporally. Intraocular phenylephrine/lidocaine was injected into the anterior chamber. The anterior chamber was then filled with viscoelastic. A keratome knife was used construct a two-plane near-clear corneal tunnel extending 2.0mm into clear cornea in the temporal position. . A flap was raised on the anterior capsule and capsulorhexis forceps were used to complete a continuous curvilinear capsulorhexis of 5.0 mm. Balanced salt solution was then used to perform cortical cleaving hydrodissection and nuclear hydrodelineation until the lens could be freely rotated within the capsular bag. The lens nucleus was then disassembled and removed within the capsular bag and iris plane using phacoemulsification. Residual cortical material was removed using the 45-degree angled silicone I/A tip with 0.3mm port. The posterior capsule was carefully polished to remove as much residual lens epithelial cells as safely possible. The capsular bag was then inflated and the anterior chamber deepened with viscoelastic. The lens implant described above was inserted into the capsular bag using the Elias Autonome Injector. A Kuglen hook was used to dial the IOL into position. Residual viscoelastic was then removed first from posterior to the IOL, then from the anterior chamber using the I/A handpiece. The lens implant was noted to center nicely within the capsular bag. The incisions were stromally hydrated, and the anterior chamber was reformed using BSS. Then 0.5cc of moxifloxacin 1.0mg/ml were injected into the capsular bag and anterior chamber. The incisions were checked with a Weck spear and found to be secure. Several drops of ophthalmic povidone-iodine 5% were then applied to the eye followed by two drops of Imprimis combination prednisolone/moxifloxacin/nepafenac solution. The drapes were removed and a clear plastic protective eye shield was placed over the eye. The patient was then returned to Same Day Surgery in stable condition.
--- NOTE | 2022-05-09 11:07 | W.ANESPOSTOP ---
Postoperative Evaluation Date, Time and Location Date Performed: 05/09/22 Time Performed: 10:50 Patient Location: Day Surgery Unit Vital Signs Most Recent Imported Vital Signs: Most Recent Vital Signs Temp Pulse Resp BP Pulse Ox 36.5 C 62 18 137/65 100 05/09/22 10:50 05/09/22 10:50 05/09/22 10:50 05/09/22 10:50 05/09/22 10:50 Pain Score Most Recent Pain Score: Most Recent Pain Score Pain Level 0 05/09/22 10:50 Assessment Mental Status: Awake (Alert & Oriented to Patient Baseline) Airway and Respiratory Function: Patent airway with normal (patient baseline) respiratory exam Cardiovascular Function: Hemodynamically Stable Hydration Status: Adequately Hydrated Nausea & Vomiting: No Nausea or Vomiting Pain: Pt. Denies Any Pain Peripheral Nerve Block: Patient did not receive a nerve block
== END 2022-05-09 11:30 | disposition home or self-care (01) ==
LOC: SUR 08:44
PROVIDERS: PCP Nurse Practitioner Family; Visit Provider Ophthalmology
PROC: (CPT 66984; principal; 2022-05-09 11:30)
DX: H25.012 Cortical age-related cataract, left eye (principal)
CPT/HCPCS: 66984; V2632

== ENCOUNTER 2022-05-16 06:22 | Day surgery (SDC) | payer MEDICARE, SELFPAY ==
[2022-05-16 06:24] VITALS: BP 139/70; PULSE 65; RESP 16; TEMP 36.3; O2SAT 99
--- NOTE | 2022-05-16 06:47 | W.ANESPRE ---
General Info Date of Service Date Performed: 05/16/22 Height: 6 ft 11.5 in Weight: 60 kg Body Mass Index (BMI): 13.3 Surgical Procedure: Operation Date: 05/16/22 07:40 Proposed Procedure Side Surgeon p Cataract Extraction with IOL Implant Right Franklin Ramirez MD Meds Allergies and Home Medications Allergies Allergy/AdvReac Type Severity Reaction Status Date / Time adhesive tape Allergy Unknown skin Verified 05/16/22 06:33 blisters atorvastatin AdvReac Intermediate muscles Verified 05/16/22 06:33 aches levothyroxine AdvReac Intermediate rapid Verified 05/16/22 06:33 heart rate rosuvastatin AdvReac Intermediate muscle Verified 05/16/22 06:33 aches losartan AdvReac Mild dizziness Verified 05/16/22 06:33 even at low dose acetaminophen [From Tylox] AdvReac Unknown severe Verified 05/16/22 06:33 stomach cramping oxycodone [From Tylox] AdvReac Unknown severe Verified 05/16/22 06:33 stomach cramping Generic Statins AdvReac Unknown severe Uncoded 05/14/22 14:48 stomach cramps/muscle aches/stiff joints Home Medication Medication Instructions Recorded cholecalciferol (vitamin D3) 100 4,000 unit PO DAILY 04/28/20 mcg (4,000 unit) capsule (Vitamin D3) fluocinonide 0.05 % topical cream 1 applic topical BID 05/28/20 aspirin 81 mg tablet,delayed 81 mg PO Q OTHER DAY 06/19/20 release loperamide 2 mg tablet (Imodium 1 mg PO DAILY PRN 06/19/20 A-D) omeprazole 20 mg tablet,delayed 20 mg PO DAILY 06/19/20 release clobetasol 0.05 % topical gel 1 applic topical .twice weekly 08/28/20 colestipol 1 gram tablet 2 g PO DAILY 08/28/20 acetaminophen 300 mg-codeine 15 mg 1 tab PO BID PRN pain #10 tabs 08/07/21 tablet albuterol sulfate 90 mcg/actuation 2 puff inhalation Q4H PRN 10/22/21 aerosol inhaler (ProAir HFA) bronchospasm #8.5 grams ibuprofen 600 mg tablet 600 mg PO TID PRN fever or pain 10/22/21 #60 tabs levothyroxine 88 mcg tablet 88 mcg PO DAILY #90 tabs 12/04/21 (Synthroid) hydrochlorothiazide 12.5 mg tablet 12.5 mg PO DAILY #90 tabs 05/07/22 lisinopril 5 mg tablet 5 mg PO DAILY #90 tabs 05/07/22 Current Visit Medications: Current Medications Generic Name Dose Route Start Last Admin Trade Name Freq PRN Reason Stop Dose Admin Miscellaneous Medication 0 ml 05/16/22 06:00 Tropicam./Phenyleph. 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 Personal history of colonic polyps ~11/18/18 Z86.010 Spondylosis of lumbar region without myelopathy or radiculopathy ~09/07/18 M47.816 Seborrhea ~08/01/18 L21.9 Left thyroid nodule ~09/02/17 E04.1 Thoracogenic scoliosis of thoracic region ~08/04/17 M41.34 Spinal stenosis of lumbar region with neurogenic claudication ~08/04/17 M48.062 Diverticulosis of large intestine without hemorrhage ~08/04/17 K57.30 Rectocele ~08/19/11 N81.6 HTN (hypertension) ~07/06/18 I10 Medical History Medical History Abnormal mammogram of left breast (~08/18/18) Asthma Basal cell carcinoma (~08/01/18) Factor V Leiden Full incontinence of feces (~09/22/17) History of vertigo (~09/02/17) Lichen sclerosus Pill dysphagia (~11/18/18) Retention cyst of tonsil (~04/22/18) Surgical History Surgical History H/O basal cell carcinoma excision (~1991) right arm 1991 left upper chest 12/2010 H/O colonoscopy (~2016) [facility] 09/15/07 H/O rectocele repair (~09/26/11) H/O total hysterectomy with bilateral salpingo-oophorectomy (BSO) (~09/26/11) History of bilateral tubal ligation (~1976) History of esophagogastroduodenoscopy (EGD) (~01/10/19) Dr. Ferro History of surgical removal of ganglion cyst (~1994) Hx of biopsy (~2011) thyroid nodule Hx of cholecystectomy (~1967) Status post cervical polyp removal (~2011) 2004 and 2011 Tobacco Smoking/Tobacco Use Status: Never Passive smoking exposure: Yes Second hand exposure: Yes Alcohol Alcohol Intake: current Alcohol intake frequency: holidays/special occasions only Alcohol type: wine Substance Use Substance use: Never Substance use type: does not use Vital Signs and Lab Results Vital Signs Most Recent Vital Signs in EMR: Most Recent Vital Signs Temp Pulse Resp BP Pulse Ox 36.3 C L 65 16 139/70 99 05/16/22 06:24 05/16/22 06:24 05/16/22 06:24 05/16/22 06:24 05/16/22 06:24 Lab Results Blood Type / Crossmatch: No Data to Display Complete Blood Count: No Data to Display Complete Metabolic Panel: No Data to Display Liver Function Panel: No Data to Display Coagulation Panel: No Data to Display Cardiac Panel: No Data to Display Arterial Blood Gas: No Data to Display Venous Blood Gas: No Data to Display Pancreas Panel: No Data to Display Thyroid Panel: No Data to Display Infectious Disease: No Data to Display Blood Cultures: No Data to Display Toxicology Panel: No Data to Display Imaging and Studies Imaging and Studies Study information below may be from another EMR and interpreted by another provider. Please see original notes in EMR for more complete details. EKG Summary: 04/19 Conclusion Sinus rhythm...normal P axis, V-rate 60- 99 Prolonged MO interval...MO >220, V-rate 50- 90 Probable anterior infarct, age indeterminate...Q >35mS, T neg, V2-V5 Echocardiogram Summary: 08/17 Conclusion Left Ventricle : The left ventricle is normal size. The left ventricular systolic function is normal. The left ventricular ejection fraction is within the normal range. There is normal left ventricular wall thickness. There is normal LV segmental wall motion. The left ventricular diastolic function is normal. LVEF is 58%. Right Ventricle : The right ventricle is normal size. The right ventricular systolic function is normal. The RVSP is 22.4 mmHg. Atria : The left atrium size is normal. The right atrium size is normal. Valves: There are no hemodynamically significant valvular lesions. Great Vessels : The aortic root is normal in size. The ascending aorta is mildly dilated. Aortic arch is normal in caliber. IVC is normal in size and collapses >50% with inspiration. Please see remainder of study for further details. Wall motion Anesthesia Assessment and Plan Anesthesia History Personal History: No History of Anesthesia Complications Family History: No Family History of Anesthesia Complications Exercise Tolerance Exercise Tolerance: Metabolic Equivalents>4 Pertinent Negatives Pertinent Negatives: No Major Pulmonary Symptoms or Complaints and No History of CVA/TIA Cardiac & Pulmonary Exam Cardiac Exam: Normal S1/S2 Heart Sounds Pulmonary Exam: Clear Bilateral Breath Sounds Implantable Cardiac Device Does patient have a Pacemaker or an ICD?: No Airway Exam Known Difficult Airway: No Mallampati Class: 1 Mouth Opening: Normal (> 3cm) Thyromental Distance: Greater than 3 cm Neck Range of Motion: Full ROM Neck Circumference: Normal Teeth Condition: Normal Dentition and Removable Dentures/Plates Upper ASA Classification ASA Score: ASA 3 Emergency Case?: No NPO Status NPO Status: NPO Clears >2 hours, Solids >8 hours Anesthesia Plan Resuscitation Status: Full Code Anesthesia Technique: MAC Anesthesia Airway Planned: Natural Airway Monitors Used: Standard Monitors Preoperative Comments:: No MKO
[2022-05-16] MEDS: Tropicam./Phenyleph. (1/2.5%) 5 ML BTL OD ×3 (06:48→06:58)
[2022-05-16 06:49] VITALS: BMI 13.3
[2022-05-16] MEDS: Balanced Salt Soln.-PLUS 500 ML BAG (07:38)
[2022-05-16] MEDS: Duovisc Viscoelastic System EACH 1 EACH (07:39)
[2022-05-16] MEDS: Povidone-Iodine Ophth 30 ML BTL (07:39)
[2022-05-16] MEDS: Lidocaine 2% Jelly 6 ML SYR (07:40)
[2022-05-16] MEDS: Tetracaine 0.5% 4 ML BTL OD (07:41)
[2022-05-16 07:56] VITALS: BP 125/67; PULSE 66; RESP 16; TEMP 36.6; O2SAT 99
--- NOTE | 2022-05-16 07:57 | ROE_ITS ---
Date of service: 05/16/22 Time of Service: 07:57 Operative Note Operative Note DATE OF PROCEDURE: 05/16/22 PRE-OP DIAGNOSIS: Cortical cataract, right eye POST-OP DIAGNOSIS: same PROCEDURE: Cataract extraction using phacoemulsification with intraocular lens implant, right eye SURGEON: Franklin Ramirez ANESTHESIA TYPE: Local By Surgeon and MAC Refer to Anesthesia Record ESTIMATED BLOOD LOSS: 0 PATHOLOGY: none sent COMPLICATIONS: None Patient was transported to: same day Patient's condition: stable Implants: Elias Clareon [id number] Indications: Progressive decreased vision due to cataract, right eye Procedure Description: CATARACT SURGERY OPERATIVE REPORT PREOPERATIVE DIAGNOSIS: Cortical cataract, right eye POSTOPERATIVE DIAGNOSIS: Same OPERATION: Cataract extraction using phacoemulsification with posterior chamber intraocular lens implant, right eye. IOL: IOL Speed Belt Sander/Model: Elias Clareon [id number] IOL Power: + 25.0 diopters IOL Serial Number: [id number] Optic Diameter: 6.0mm Haptic/Overall Diameter: 13.0mm PHACO INFO: Elias Photop Technologiesurion Vision System with OZil and Active Fluidics Cumulative Dispersed Energy (CDE): 9.67 seconds SURGEON: Franklin Ramirez MD, SONY ANESTHESIA: Monitored Anesthesia Care (MAC), with local sub-tenon's anesthetic infiltration COMPLICATIONS: None SPECIMENS: None INDICATIONS FOR PROCEDURE: The patient is a 76-year-old lady with history of diminished visual acuity in both eyes secondary to the development of bilateral cortical cataract. She has already undergone cataract surgery in the left eye and is doing well postoperatively. She now presents for cataract surgery in the right eye. PROCEDURE: The correct surgical eye was identified and marked as the right eye and the pupil was dilated in the preoperative area using mydriatics and cycloplegics. The dilated pupil size was 7.0 mm. The patient elected to proceed without oral sedation. The patient was brought to the operating room where cardiopulmonary monitoring was instituted and surgical time-out was performed, confirming the correct operative eye and IOL power. Topical anesthesia was administered and ophthalmic povidone-iodine 5% was instilled into the conjunctival fornices. Lidocaine gel was applied to the cornea and the shruthi-ocular area was prepped with Betadine 10% solution and draped in the usual sterile fashion for intraocular surgery, including an aperture drape. A Tegaderm transparent film dressing was cut in half and used to cover the lashes and lid margins. Care was taken to sequester the lashes and lid margins under the Tegaderm dressing. A lid speculum was placed between the lids of the operative eye and the Ashlee-Mike operating microscope was maneuvered into position. Yomaira scissors were then used to make a conjunctival buttonhole approximately 6mm posterior to the limbus in the inferonasal quadrant. Blunt dissection was carried out to expose bare sclera, and a blunt-tipped sub-tenon?s anesthesia cannula was introduced and passed posteriorly along the globe where non- preserved plain lidocaine was injected into posterior sub-Tenon?s space. A sideport knife was used to make a paracentesis port inferiortemporally. Intraocular phenylephrine/lidocaine was injected into the anterior chamber. The anterior chamber was then filled with viscoelastic. A keratome knife was used to construct a two--plane near-clear corneal tunnel extending 2.0mm into clear cornea in the superiortemporal position.. A flap was raised on the anterior capsule and capsulorhexis forceps were used to complete a continuous curvilinear capsulorhexis of 5.5 mm. Balanced salt solution was then used to perform cortical cleaving hydrodissection and nuclear hydrodelineation until the lens could be freely rotated within the capsular bag. The lens nucleus was then disassembled and removed within the capsular bag and iris plane using phacoemulsification. Residual cortical material was removed using the I/A handpiece. The posterior capsule was carefully polished to remove as much residual lens epithelial cells as safely possible. The capsular bag was then inflated and the anterior chamber deepened with viscoelastic. The lens implant described above was inserted into the capsular bag using the Elias Autonome Injector. A Kuglen hook was used to dial the IOL into position. Residual viscoelastic was then removed first from posterior to the IOL, then from the anterior chamber using the I/A handpiece. The lens implant was noted to center nicely within the capsular bag. The incisions were stromally hydrated, and the anterior chamber was reformed using BSS. Then 0.5cc of moxifloxacin 1.0mg/ml were injected into the capsular bag and anterior chamber. The incisions were checked with a Weck spear and found to be secure. Several drops of ophthalmic povidone-iodine 5% were then applied to the eye followed by two drops of Imprimis combination prednisolone/moxifloxacin/nepafenac solution. The drapes were removed and a clear plastic protective eye shield was placed over the eye. The patient was then returned to Same Day Surgery in stable condition.
--- NOTE | 2022-05-16 07:57 | W.PM.DSUDISC ---
Date of service: 05/16/22 Time of Service: 07:57 Discharge Plan Disposition Patient Disposition: Home Discharge Details Attending Provider: Franklin Ramirez Primary Care Provider: Chacho Lion Home Meds and New Rx's Prescriptions: No Action colestipol 1 gram tablet 2 g PO DAILY levothyroxine [Synthroid] 88 mcg tablet 88 mcg PO DAILY Qty: 90 3RF fluocinonide 0.05 % cream 1 applic topical BID clobetasol 0.05 % gel 1 applic topical .twice weekly acetaminophen-codeine 300-15 mg tablet 1 tab PO BID PRN (Reason: pain) Qty: 10 0RF omeprazole 20 mg tablet,delayed release (DR/EC) 20 mg PO DAILY loperamide [Imodium A-D] 2 mg tablet 1 mg PO DAILY PRN aspirin 81 mg tablet,delayed release (DR/EC) 81 mg PO Q OTHER DAY ibuprofen 600 mg tablet 600 mg PO TID PRN (Reason: fever or pain) Qty: 60 0RF albuterol sulfate [ProAir HFA] 90 mcg/actuation HFA aerosol inhaler 2 puff inhalation Q4H PRN (Reason: bronchospasm) Qty: 8.5 3RF Rx Instructions: every 4 to 6 hours hydrochlorothiazide 12.5 mg tablet 12.5 mg PO DAILY Qty: 90 3RF Hold Instructions: Feeling weak and woozy. Holding trial until 05/05/22. lisinopril 5 mg tablet 5 mg PO DAILY Qty: 90 3RF Vitamin D3 100 mcg (4,000 unit) Capsule 4,000 unit PO DAILY Discharge Instructions Stand Alone Forms: Post-op Topical CataractEstephania (DSU) Discharge Orders Discharge Orders: Discharge Order (Routine); Ordered 05/16/22 Ordered By: Franklin Ramirez DS: Diagnosis Discharge Diagnosis (1) Cortical cataract of right eye: Status: Resolved
--- NOTE | 2022-05-16 08:15 | W.ANESPOSTOP ---
Postoperative Evaluation Date, Time and Location Date Performed: 05/16/22 Time Performed: 08:01 Patient Location: Day Surgery Unit Vital Signs Most Recent Imported Vital Signs: Most Recent Vital Signs Temp Pulse Resp BP Pulse Ox 36.6 C 66 16 125/67 99 05/16/22 07:56 05/16/22 07:56 05/16/22 07:56 05/16/22 07:56 05/16/22 07:56 Pain Score Most Recent Pain Score: Most Recent Pain Score Pain Level 0 05/16/22 07:56 Assessment Mental Status: Awake (Alert & Oriented to Patient Baseline) Airway and Respiratory Function: Patent airway with normal (patient baseline) respiratory exam Cardiovascular Function: Hemodynamically Stable Hydration Status: Adequately Hydrated Nausea & Vomiting: No Nausea or Vomiting Pain: Pt. Denies Any Pain Peripheral Nerve Block: Other (Local by Dr. Ramirez)
== END 2022-05-16 08:14 | disposition home or self-care (01) ==
LOC: SUR 06:22
PROVIDERS: PCP Nurse Practitioner Family; Visit Provider Ophthalmology
PROC: (CPT 66984; principal; 2022-05-16 07:30)
DX: H26.8 Other specified cataract (principal)
CPT/HCPCS: 66984; V2632

== ENCOUNTER → 2022-07-03 09:21 | Outpatient (BNVA) | payer MEDICARE, SELFPAY | PROVIDERS: PCP Nurse Practitioner Family; Referring Provider Nurse Practitioner Family; Visit Provider Physical Therapy Assistant | DX: Z12.11 Encounter for screening for malignant neoplasm of colon (principal); Z86.010 Personal history of colon polyps ==

== ENCOUNTER 2022-07-14 09:13 | Day surgery (SDC) | payer MEDICARE, SELFPAY ==
--- NOTE | 2022-07-13 20:57 | W.PM.DSUDISC ---
Date of service: 07/13/22 Time of Service: 11:27 Discharge Plan Disposition Patient Disposition: Home Condition: Good Discharge Details Reason For Visit: Colonoscopy Attending Provider: Navjot Dupree Primary Care Provider: Chacho Lion Home Meds and New Rx's Prescriptions: Continued colestipol 1 gram tablet 2 g PO DAILY levothyroxine [Synthroid] 88 mcg tablet 88 mcg PO DAILY Qty: 90 3RF fluocinonide 0.05 % cream 1 applic topical BID clobetasol 0.05 % gel 1 applic topical .twice weekly acetaminophen-codeine 300-15 mg tablet 1 tab PO BID PRN (Reason: pain) Qty: 10 0RF hydrochlorothiazide 12.5 mg tablet 12.5 mg PO DAILY Qty: 90 3RF Hold Instructions: Feeling weak and woozy. Holding trial until 05/05/22. lisinopril 5 mg tablet 5 mg PO DAILY Qty: 90 3RF omeprazole 20 mg tablet,delayed release (DR/EC) 20 mg PO DAILY loperamide [Imodium A-D] 2 mg tablet 1 mg PO DAILY PRN aspirin 81 mg tablet,delayed release (DR/EC) 81 mg PO Q OTHER DAY ibuprofen 600 mg tablet 600 mg PO TID PRN (Reason: fever or pain) Qty: 60 0RF albuterol sulfate [ProAir HFA] 90 mcg/actuation HFA aerosol inhaler 2 puff inhalation Q4H PRN (Reason: bronchospasm) Qty: 8.5 3RF Rx Instructions: every 4 to 6 hours Vitamin D3 100 mcg (4,000 unit) Capsule 4,000 unit PO DAILY Discontinued bisacodyl [Dulcolax (bisacodyl)] 5 mg tablet,delayed release (DR/EC) 5 mg PO ONCE Qty: 4 0RF Rx Instructions: Colonoscopy Bowel Prep- Per Instructions polyethylene glycol 3350 17 gram/dose powder 238 g PO ONCE Qty: 238 0RF Rx Instructions: Colonoscopy Bowel Prep- Per Instructions Discharge Instructions Instructions: Diverticulosis (DC), Diverticulosis Diet (GEN) Additional Instructions: Josselin, we were able to complete your colonoscopy today without any difficulty. You have some very mild diverticulosis. I have attached some information here regarding diverticula, and the general management of that. Otherwise, I did not see any evidence of polyps or tumors. 1. If tolerated, consume a soft, low fiber diet for 1-2 days. 2. Do not drive, drink alcohol, operate machinery, make critical decisions, or do activities that require coordination or balance for 24 hours. 3. Because air was put into your colon during the procedure, expelling air from your rectum (passing gas or farting) is normal. 4. You may not have a bowel movement for 1-3 days because of the colonoscopy prep. This is normal. 5. Go directly to the emergency room if you notice any of the following: Develop chills (warm to touch), or if you have a thermometer and your temperature is above 101 Difficulty breathing or difficultly swallowing Persistent vomiting Severe abdominal pain, other than gas cramps Severe chest pain Black, tarry stools Any bleeding ? exceeding one tablespoon 6. Call your physician if the site where your intravenous was started becomes red, swollen, painful, and warm to touch. 7. Your physician has reviewed your pre-procedure medications. Please continue to take those medications as previously ordered. You will be given specific information/education regarding any changes to your medications before leaving. Activity:: Activity as Tolerated Diet:: As Tolerated Discharge Orders Discharge Orders: Discharge Order (Routine); Ordered 07/13/22 Ordered By: Navjot Dupree DS: Diagnosis Discharge Diagnosis (1) Screening for colon cancer: Status: Acute Asessment and Plan: Negative screening colonoscopy.
--- NOTE | 2022-07-13 20:58 | W.COLOREPORT ---
Date of service: 07/14/22 Time of Service: 11:28 Colonoscopy Report Date of procedure: 07/14/22 Pre-op diagnosis general: Screening colonoscopy Post-op diagnosis procedure note: other (Diverticulosis) Procedure: Colonoscopy Surgeon: Navjot Dupree Anesthesia Type: General:No Airway Estimated blood loss (mL): 0 Pathology: none sent Complications: None Disposition: same day Indications: Josselin is a 76-year-old woman following up for her next screening colonoscopy Prep: Miralax/Dulcolax Procedure Start Time: 11:01 Procedure End Time: 11:16 Retraction Time: 8 Findings: Diverticulosis Procedure Description: After the induction of monitored anesthetic care, and with the patient in left lateral decubitus position, I began by performing an external anorectal exam.? Perineum and skin were normal, as was the anal verge.? There was no evidence of external hemorrhoids.? Next, I performed a digital rectal exam.? I did not appreciate any abnormal findings.? Next, I advanced a colonoscope into the rectal vault.? I performed retroflexion.? This was normal.? Using insufflation, I then advanced the colonoscope beyond the rectal folds and into the sigmoid colon before advancing towards the cecum.? There was sigmoid diverticulosis. the quality of the prep was excellent.? The scope was noted to be in the cecum by identification of the ileocecal valve and appendiceal orifice.? I then began withdrawing the colonoscope using repeated irrigation as necessary for full evaluation of the colonic mucosa. ?Once the scope was withdrawn to the level of the rectum, great care was taken to examine portions of the rectal folds.? I did not see any evidence of polyps or tumors. Finally, the scope was withdrawn and the patient was brought to the same-day surgery recovery unit as the anesthetic wore off. ?The findings and instructions were shared with the patient prior to discharge.
[2022-07-14 09:00] VITALS: BP 155/67; PULSE 79; RESP 16; TEMP 36.4; O2SAT 98
[2022-07-14] MEDS: Lactated Ringers 1,000 ML 80 ML IV (09:57)
--- NOTE | 2022-07-14 10:09 | W.ANESPRE ---
General Info Date of Service Date Performed: 07/14/22 Height: 5 ft Weight: 84.822 kg Body Mass Index (BMI): 36.5 Surgical Procedure: Operation Date: 07/14/22 10:50 Proposed Procedure Side Surgeon tam Dupree MD Meds Allergies and Home Medications Allergies Allergy/AdvReac Type Severity Reaction Status Date / Time adhesive tape Allergy Unknown skin Verified 07/14/22 09:35 blisters atorvastatin AdvReac Intermediate muscles Verified 07/14/22 09:35 aches levothyroxine AdvReac Intermediate rapid Verified 07/14/22 09:35 heart rate rosuvastatin AdvReac Intermediate muscle Verified 07/14/22 09:35 aches losartan AdvReac Mild dizziness Verified 07/14/22 09:35 even at low dose oxycodone [From Tylox] AdvReac Unknown severe Verified 07/14/22 09:35 stomach cramping Generic Statins AdvReac Unknown severe Uncoded 07/14/22 09:35 stomach cramps/muscle aches/stiff joints Home Medication Medication Instructions Recorded cholecalciferol (vitamin D3) 100 4,000 unit PO DAILY 04/28/20 mcg (4,000 unit) capsule (Vitamin D3) fluocinonide 0.05 % topical cream 1 applic topical BID 05/28/20 aspirin 81 mg tablet,delayed 81 mg PO Q OTHER DAY 06/19/20 release loperamide 2 mg tablet (Imodium 1 mg PO DAILY PRN 06/19/20 A-D) omeprazole 20 mg tablet,delayed 20 mg PO DAILY 06/19/20 release clobetasol 0.05 % topical gel 1 applic topical .twice weekly 08/28/20 colestipol 1 gram tablet 2 g PO DAILY 08/28/20 acetaminophen 300 mg-codeine 15 mg 1 tab PO BID PRN pain #10 tabs 08/07/21 tablet albuterol sulfate 90 mcg/actuation 2 puff inhalation Q4H PRN 10/22/21 aerosol inhaler (ProAir HFA) bronchospasm #8.5 grams ibuprofen 600 mg tablet 600 mg PO TID PRN fever or pain 10/22/21 #60 tabs levothyroxine 88 mcg tablet 88 mcg PO DAILY #90 tabs 12/04/21 (Synthroid) hydrochlorothiazide 12.5 mg tablet 12.5 mg PO DAILY #90 tabs 05/22/22 lisinopril 5 mg tablet 5 mg PO DAILY #90 tabs 05/22/22 Current Visit Medications: Current Medications Generic Name Dose Route Start Last Admin Trade Name Jasper PRN Reason Stop Dose Admin Hyoscyamine Sulfate 0.125 mg 07/13/22 21:00 Hyoscyamine 0.125 Mg Sl/Oral/Chew SL DIRECTED PRN Ringer's Solution 1,000 mls @ 80 mls/hr 07/14/22 06:00 07/14/22 09:57 IV 08/10/22 23:59 80 mls/hr INFUSION SARA Administration IV Miscellaneous Supplies 1 each 07/14/22 06:00 Iv Access IV 08/10/22 23:59 DIRECTED SARA Ondansetron HCl 4 mg 07/13/22 21:00 Ondansetron 4 Mg/2 Ml Vial IVP Q4H PRN PRN Nausea / Vomiting Sodium Chloride 0 ml 07/14/22 06:00 Normal Saline Flush 10 Ml Syr IV 08/10/22 23:59 PRN PRN Sodium Chloride 0 ml 07/14/22 06:00 Normal Saline 10 Ml Vial IJ 08/10/22 23:59 DIRECTED PRN Sterile Water 0 ml 07/14/22 06:00 Water,Injection,Sterile 10 Ml Vial IJ 08/10/22 23:59 DIRECTED PRN PFSH Active Problems Active Problems: Problem Status Onset Code HTN (hypertension) ~07/06/18 I10 Rectocele ~08/19/11 N81.6 Diverticulosis of large intestine without hemorrhage ~08/04/17 K57.30 Spinal stenosis of lumbar region with neurogenic claudication ~08/04/17 M48.062 Thoracogenic scoliosis of thoracic region ~08/04/17 M41.34 Left thyroid nodule ~09/02/17 E04.1 Seborrhea ~08/01/18 L21.9 Spondylosis of lumbar region without myelopathy or radiculopathy ~09/07/18 M47.816 Personal history of colonic polyps ~11/18/18 Z86.010 Elevated lipoprotein(a) ~09/13/19 E78.41 GERD (gastroesophageal reflux disease) K21.9 Change in voice R49.9 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 Hyperlipemia E78.5 Fatigue R53.83 Pre-syncope R55 Hypothyroidism E03.9 Pain of finger of left hand M79.645 Cortical cataract of left eye H26.9 Cortical cataract of right eye H26.9 Screening for colon cancer Z12.11 Medical History Medical History Abnormal mammogram of left breast (~08/18/18) Asthma Basal cell carcinoma (~08/01/18) Factor V Leiden Full incontinence of feces (~09/22/17) History of vertigo (~09/02/17) Lichen sclerosus Pill dysphagia (~11/18/18) Retention cyst of tonsil (~04/22/18) Surgical History Surgical History H/O basal cell carcinoma excision (~1991) right arm 1992 left upper chest 12/2010 [place]2016[place] [facility] [place] [facility] [place]07 H/O rectocele repair (~09/26/11) H/O total hysterectomy with bilateral salpingo-oophorectomy (BSO) (~09/26/11) History of bilateral tubal ligation (~1976) History of cataract surgery History of esophagogastroduodenoscopy (EGD) (~01/10/19) Dr. Ferro History of surgical removal of ganglion cyst (~1994) Hx of biopsy (~2011) thyroid nodule Hx of cholecystectomy (~1967) Status post cervical polyp removal (~2011) 2004 and 2011 Tobacco Smoking/Tobacco Use Status: Never Passive smoking exposure: Yes Second hand exposure: Yes Alcohol Alcohol Intake: current Alcohol intake frequency: holidays/special occasions only Alcohol type: wine Substance Use Substance use: Never Substance use type: does not use Vital Signs and Lab Results Vital Signs Most Recent Vital Signs in EMR: Most Recent Vital Signs Temp Pulse Resp BP Pulse Ox 36.4 C L 79 16 155/67 H 98 07/14/22 09:00 07/14/22 09:00 07/14/22 09:00 07/14/22 09:00 07/14/22 09:00 Lab Results Blood Type / Crossmatch: No Data to Display Complete Blood Count: No Data to Display Complete Metabolic Panel: No Data to Display Liver Function Panel: No Data to Display Coagulation Panel: No Data to Display Cardiac Panel: No Data to Display Arterial Blood Gas: No Data to Display Venous Blood Gas: No Data to Display Pancreas Panel: No Data to Display Thyroid Panel: No Data to Display Infectious Disease: No Data to Display Blood Cultures: No Data to Display Toxicology Panel: No Data to Display Imaging and Studies Imaging and Studies Study information below may be from another EMR and interpreted by another provider. Please see original notes in EMR for more complete details. EKG Summary: 04/19 Conclusion Sinus rhythm...normal P axis, V-rate 60- 99 Prolonged IA interval...IA >220, V-rate 50- 90 Probable anterior infarct, age indeterminate...Q >35mS, T neg, V2-V5 Echocardiogram Summary: 08/17 Conclusion Left Ventricle : The left ventricle is normal size. The left ventricular systolic function is normal. The left ventricular ejection fraction is within the normal range. There is normal left ventricular wall thickness. There is normal LV segmental wall motion. The left ventricular diastolic function is normal. LVEF is 58%. Right Ventricle : The right ventricle is normal size. The right ventricular systolic function is normal. The RVSP is 22.4 mmHg. Atria : The left atrium size is normal. The right atrium size is normal. Valves: There are no hemodynamically significant valvular lesions. Great Vessels : The aortic root is normal in size. The ascending aorta is mildly dilated. Aortic arch is normal in caliber. IVC is normal in size and collapses >50% with inspiration. Please see remainder of study for further details. Wall motion Anesthesia Assessment and Plan Anesthesia History Personal History: No History of Anesthesia Complications Family History: No Family History of Anesthesia Complications Exercise Tolerance Exercise Tolerance: Metabolic Equivalents>4 Pertinent Negatives Pertinent Negatives: No Symptoms of GERD (med controlled) Cardiac & Pulmonary Exam Cardiac Exam: Normal S1/S2 Heart Sounds Pulmonary Exam: Clear Bilateral Breath Sounds Implantable Cardiac Device Does patient have a Pacemaker or an ICD?: No Airway Exam Known Difficult Airway: No Mallampati Class: 1 Mouth Opening: Normal (> 3cm) Thyromental Distance: Greater than 3 cm Neck Range of Motion: Full ROM Neck Circumference: Normal Teeth Condition: Normal Dentition and Removable Dentures/Plates Upper ASA Classification ASA Score: ASA 2 Emergency Case?: No NPO Status NPO Status: NPO Clears >2 hours, Solids >8 hours Anesthesia Plan Resuscitation Status: Full Code Anesthesia Technique: General Anesthesia Airway Planned: Natural Airway Monitors Used: Standard Monitors
[2022-07-14 10:51] VITALS: BMI 36.5
[2022-07-14 11:22] VITALS: BP 128/67; PULSE 76; RESP 16; TEMP 37.1; O2SAT 96
--- NOTE | 2022-07-14 11:35 | W.ANESPOSTOP ---
Postoperative Evaluation Date, Time and Location Date Performed: 07/14/22 Time Performed: 11:35 Patient Location: Day Surgery Unit Vital Signs Most Recent Imported Vital Signs: Most Recent Vital Signs Temp Pulse Resp BP Pulse Ox 37.1 C 76 16 128/67 96 07/14/22 11:22 07/14/22 11:22 07/14/22 11:22 07/14/22 11:22 07/14/22 11:22 Pain Score Most Recent Pain Score: Most Recent Pain Score Pain Level 0 07/14/22 11:22 Assessment Mental Status: Awake (Alert & Oriented to Patient Baseline) Airway and Respiratory Function: Patent airway with normal (patient baseline) respiratory exam Cardiovascular Function: Hemodynamically Stable Hydration Status: Adequately Hydrated Nausea & Vomiting: No Nausea or Vomiting Pain: Pt. Denies Any Pain Peripheral Nerve Block: Patient did not receive a nerve block Teaching Patient Teaching: Discussed Safe Use of Pain Medication Given Likely or Known AMY
[2022-07-14 11:50] VITALS: BP 121/79; PULSE 76; RESP 16; TEMP 36.8; O2SAT 98
== END 2022-07-14 12:10 | disposition home or self-care (01) ==
PROVIDERS: PCP Nurse Practitioner Family; Visit Provider Surgery
PROC: 0DJD8ZZ Inspection of Lower Intestinal Tract, Via Natural or Artificial Opening Endoscopic (ICD-10-PCS; CPT 45378; principal; 2022-07-14 10:45)
DX: Z12.11 Encounter for screening for malignant neoplasm of colon (principal); Z86.010 Personal history of colon polyps; K57.30 Diverticulosis of large intestine without perforation or abscess without bleeding
CPT/HCPCS: G0105

== ENCOUNTER 2022-07-22 03:06 | Outpatient (CLI) | payer MEDICARE, SELFPAY ==
[2022-07-22 09:07] LABS: Calculated LDL 144 mg/dL (<100); Cholesterol 237 mg/dL (<200); Estimated GFR 58.39 (mL/min/1.73m2); HDL Cholesterol 64 mg/dL (40-60); Potassium 4.5 mmol/L (3.5-5.1); TSH (W/Ref FT4) 1.27 uIU/mL (0.36-3.74); Triglyceride 146 mg/dL (<150)
== END 2022-07-22 03:07 | disposition home or self-care (01) ==
PROVIDERS: PCP Nurse Practitioner Family; Visit Provider Nurse Practitioner Family
DX: E78.5 Hyperlipidemia, unspecified (principal); I10 Essential (primary) hypertension; E03.9 Hypothyroidism, unspecified
CPT/HCPCS: 36415; 80061; 82565; 84132; 84443

== ENCOUNTER 2022-08-14 02:57 | Outpatient (CLI) | payer MEDICARE, SELFPAY ==
[2022-08-14 13:14] LABS: HGB 12.1 g/dL (11.2-15.7); MCHC 32.7 % (32.0-36.0); MCV 92 fL (80-95); Platelet Count 255 10^3/uL (130-400); RBC 4.04 10^6/uL (3.93-5.22); RDW 12.7 % (11.7-14.6); WBC 7.33 10^3/uL (4.4-10.8)
[2022-08-14 14:02] LABS: Ferritin 90 ng/mL (8-252)
[2022-08-14 14:13] LABS: Iron 76 ug/dL (50-170); Total Iron Binding Capacity 300 ug/dL (250-450); Transferrin Sat 25 % (15-50)
[2022-08-15 10:56] LABS: Transferrin 247 mg/dL (201-352)
== END 2022-08-14 02:58 | disposition home or self-care (01) ==
LOC: LBO 02:57
PROVIDERS: PCP Nurse Practitioner Family; Visit Provider Nurse Practitioner Family
DX: M79.645 Pain in left finger(s) (principal); R53.83 Other fatigue
CPT/HCPCS: 36415; 85027; 82728; 83540; 83550; 84466

== ENCOUNTER 2023-07-16 14:53 | Outpatient (CLI) | payer MEDICARE, SELFPAY ==
--- NOTE | 2023-07-16 14:45 | RT.EKG_ITS ---
APPROVED REPORT Exam: Resting ECG Reason for Exam: palpitations Patient Location: O HR:74 bpm ECG Measurements Heart Rate 74 AXIS IA 226 P 53 QRSd 143 QRS -16 QT 431 T 26 QTc 479 Conclusion Sinus rhythm...normal P axis, V-rate 50- 99 Prolonged IA interval...IA >220, V-rate 50- 90 Right bundle branch block...QRSd>120, terminal axis(90,270) Left ventricular hypertrophy...multiple voltage criteria
== END 2023-07-16 14:54 | disposition home or self-care (01) ==
LOC: DI.CM 14:54
PROVIDERS: PCP Nurse Practitioner Family; Visit Provider Nurse Practitioner Family
DX: I49.9 Cardiac arrhythmia, unspecified (principal); I45.10 Unspecified right bundle-branch block
CPT/HCPCS: 93010

== ENCOUNTER 2023-07-31 12:02 | Emergency (ER) | payer MEDICARE, SELFPAY ==
[2023-07-31] VITALS (8 sets, daily range): BP systolic 143–157; BP diastolic 59–71; PULSE 73–90; RESP 14–18; TEMP 36.6; O2SAT 100
--- NOTE | 2023-07-31 12:00 | RT.EKG_ITS ---
APPROVED REPORT Exam: Resting ECG Reason for Exam: weakness Patient Location: E HR:80 bpm ECG Measurements Heart Rate 80 AXIS WI 214 P 45 QRSd 130 QRS -28 QT 403 T 32 QTc 466 Conclusion Sinus rhythm...normal P axis, V-rate 60- 99 Borderline prolonged WI interval...WI >212, V-rate 50- 90 Right bundle branch block...QRSd>120, terminal axis(90,270) Left ventricular hypertrophy...multiple LVH criteria
--- NOTE | 2023-07-31 12:00 | RT.EKG_ITS ---
APPROVED REPORT Exam: Resting ECG Reason for Exam: weakness Patient Location: E HR:80 bpm ECG Measurements Heart Rate 80 AXIS OH 214 P 45 QRSd 130 QRS -28 QT 403 T 32 QTc 466 Conclusion Sinus rhythm...normal P axis, V-rate 60- 99 Borderline prolonged OH interval...OH >212, V-rate 50- 90 Right bundle branch block...QRSd>120, terminal axis(90,270) Left ventricular hypertrophy...multiple LVH criteria
--- NOTE | 2023-07-31 12:45 | RT.EKG_ITS ---
APPROVED REPORT Exam: Resting ECG Reason for Exam: weakness Patient Location: E HR:127 bpm ECG Measurements Heart Rate 127 AXIS WV 135 P 136 QRSd 82 QRS 35 QT 308 T [id number] QTc 448 Conclusion Ectopic atrial tachycardia...P axis (-45,135), rate> 99 Low voltage, extremity leads...all extremity leads <0.5mV This is the first EKG for patient Yamila Pederson, but was miselabelled in [facility] as belonging t o a different patient.
[2023-07-31 13:12] LABS: Abs Immature Grans 0.01 10^3/uL (0.0-0.06); Absolute Basophil Count 0.03 10^3/uL (0.0-0.2); Absolute Eosinophil Count 0.09 10^3/uL (0.0-0.7); Absolute Lymphocyte Count 2.11 10^3/uL (1.2-3.4); Absolute Monocyte Count 0.49 10^3/uL (0.1-0.8); Absolute Neutrophil Count 5.31 10^3/uL (1.2-6.7); Basophils % 0.4 %; Eosinophils % 1.1 %; HCT 43.4 % (36.0-46.0); HGB 14.2 g/dL (11.2-15.7); Immature Grans % 0.1 %; Lymphocytes % 26.2 %; MCHC 32.7 % (32.0-36.0); MCV 92 fL (80-95); MPV 9.7 fL (8.0-11.0); Monocytes % 6.1 %; Neutrophils % 66.1 %; Platelet Count 260 10^3/uL (130-400); RBC 4.73 10^6/uL (3.93-5.22); RDW 12.7 % (11.7-14.6); RDW-SD 42.6 fL; WBC 8.04 10^3/uL (4.4-10.8)
[2023-07-31 13:41] LABS: D-Dimer 1987 ng/mlFEU (<500)
--- NOTE | 2023-07-31 13:45 | DI.CT_ITS ---
Exam(s) CT CHEST PE CTA EXAM: CT CHEST PE CTA CLINICAL HISTORY: hx of factor V, sob, elevated ddimer. TECHNIQUE: Imaging Protocol: CT angiography of the chest was performed using pulmonary embolus radha col. Multi planar reconstructions were performed. CONTRAST MATERIAL: Intravenous: Omnipaque 350 Contrast volume: 100 cc COMPARISON: No exams were available for comparison FINDINGS: CHEST: Severe scoliosis noted. PULMONARY ARTERIES: There are no intraluminal filling defects to suggest acute pulmonary emboli. LUNGS: There are no infiltrates nor evidence of pulmonary infarction.. There are no pleural effusions . MEDIASTINUM: There is no hilar nor mediastinal adenopathy. CARDIAC: Heart size upper normal. There is no pericardial effusion.Caliber of the thoracic aorta is within normal limits. No evidence of aortic dissection. There is no significant shift of the interve ntricular septum. PARTIALLY VISUALIZED UPPERMOST ABDOMEN: No obvious findings OSSEOUS: Severe scoliosis noted. No fractures. No significant osseous lesions evident.. IMPRESSION: 1. No evidence of acute pulmonary emboli. No evidence of pulmonary infarction.No pleural effusions. 2. No evidence of aortic dissection nor pericardial effusion. 3. Severe scoliosis. Fractures nor osseous lesions. Called by myself to ER provider. RADIATION DOSE DELIVERED: 471.52mGy.cm Total DLP DATA REPOSITORY: All CT scans at this facility are submitted to the National Radiology Data Registry (NRDR) Dose Index Registry (DIR) with the [employer] (A[employer]). RADIATION OPTIMIZATION: All CT scans at this facility use at least one of these dose optimization te chniques: automated exposure control; mA and/or kV adjustment per patient size (includes targeted exa ms where dose is matched to clinical indication); or iterative reconstruction.
[2023-07-31 13:46] LABS: ALT 23 U/L (14-59); AST 14 U/L (15-37); Albumin 3.7 g/dL (3.4-5.0); Alkaline Phosphatase 101 U/L (46-116); Anion Gap 9.5 mmol/L (3-11); BUN 17 mg/dL (7-18); Bilirubin, Total 0.3 mg/dL (0.2-1.0); CO2 27.5 mmol/L (21.0-32.0); Calcium 9.2 mg/dL (8.5-10.1); Chloride 100 mmol/L (98-107); Estimated GFR 58.02 (mL/min/1.73m2); Glucose 126 mg/dL (74-106); Lipase 23 U/L (16-77); Magnesium 1.7 mg/dL (1.8-2.4); Potassium 3.5 mmol/L (3.5-5.1); Sodium 137 mmol/L (136-145); TSH (W/Ref FT4) 0.82 uIU/mL (0.36-3.74)
[2023-07-31 13:47] LABS: Troponin I < 50 ng/L (< or =60)
[2023-07-31 14:17] LABS: Bilirubin Negative (Negative); Blood Negative (Negative); Clarity Clear (Clear); Glucose Negative (Negative); Ketones Negative (Negative); Leukocyte Esterase Small (Negative); Nitrite Negative (Negative); Specific Gravity 1.015 (1.005-1.025); Urobilinogen 0.2 mg/dL (Up to 0.2)
[2023-07-31 14:25] LABS: Epithelial Cells Moderate HPF (Negative); Other Cells Rare Renal (Negative); RBC 0-2 HPF (0-2)
[2023-07-31 14:26] LABS: Bacteria Rare HPF (Negative); C & S Indicated? No/Sq. Contamination; Casts Negative LPF (Negative); Crystals Negative HPF (Negative); Mucus Negative (Negative)
[2023-07-31] MEDS: Omnipaque 350 MG/ML 100 ML BTL IJ (15:23)
[2023-07-31] MEDS: Normal Saline - Diluent 50 ML VIAL IJ (15:24)
--- NOTE | 2023-07-31 15:44 | ED.GENADUL_ITS ---
Discharge Plan Disposition Patient Disposition: Home Condition: Stable Discharge Details Clinical Impression: Palpitation, Light-headed feeling Primary Care Provider: Chacho Lion ED Provider: Haleigh Hook Home Meds and New Rx's Prescriptions: New magnesium 250 mg tablet 250 mg PO DAILY Qty: 10 0RF Continued omeprazole 20 mg tablet,delayed release (DR/EC) 20 mg PO .every other day Qty: 45 3RF fluocinonide 0.05 % cream 1 applic topical BID clobetasol 0.05 % gel 1 applic topical .twice weekly loperamide [Imodium A-D] 2 mg tablet 1 mg PO DAILY PRN aspirin 81 mg tablet,delayed release (DR/EC) 81 mg PO Q OTHER DAY albuterol sulfate [ProAir HFA] 90 mcg/actuation HFA aerosol inhaler 2 puff inhalation Q4H PRN (Reason: bronchospasm) Qty: 8.5 3RF Rx Instructions: every 4 to 6 hours levothyroxine [Synthroid] 88 mcg tablet 88 mcg PO DAILY Qty: 90 3RF ibuprofen 600 mg tablet 600 mg PO TID PRN (Reason: fever or pain) Qty: 30 3RF colestipol 1 gram tablet 2 g PO DAILY Qty: 60 12RF hydrochlorothiazide 12.5 mg tablet 12.5 mg PO DAILY Qty: 90 3RF Hold Instructions: Feeling weak and woozy. Holding trial until 05/05/22. Discharge Instructions Instructions: Heart Palpitations (ED) Additional Instructions: Recommend outpatient Holter monitor as your symptoms are worsening, talk to your doctor about ordering this outpatient Please follow-up for your echocardiogram that you have scheduled on Thursday Your tests today are reassuring At this time we have excluded more ominous causes of your symptoms, I recommend using caution while ambulating and refraining from working at height or doing any activities where you may injure yourself if you fall Return immediately should you develop new or worsening complaints Referrals: Chacho Lion, LEATHER POLISHER [Primary Care Provider] - Discharge Data Discharge Date/Time-TO BE ENTERED AT DEPARTURE: 07/31/23 17:06 HPI <SWETHA Barnes - Last Filed: 08/01/23 10:04> General Date/Time Provider Initiated Documentation: 07/31/23 12:14 . HPI Narrative: This 77-year-old female with history of factor V Leiden, hypertension and back pain presents with report of intermittent episodes of lightheadedness and shortness of breath that have been present over the course of the past several months. Patient has been seen by her primary care physician and has an outpatient echocardiogram ordered, however secondary to increased episodes she presents for assessment. She denies any associated chest discomfort. She denies any calf pain or swelling, she denies any recent falls or injuries. She denies any illnesses. She denies any exertional component to her symptoms and states that largely they occur at rest. She denies any nausea vomiting or diaphoresis. She does state that she has been on several different hypertensive amounts, the only when she has been able to tolerate is a hydrochlorothiazide per patient. Related Data Home Medications Medication Instructions Recorded Confirmed fluocinonide 0.05 % topical cream 1 applic topical BID 05/28/20 07/31/23 aspirin 81 mg tablet,delayed 81 mg PO Q OTHER DAY 06/19/20 07/31/23 release loperamide 2 mg tablet (Imodium 1 mg PO DAILY PRN 06/19/20 07/31/23 A-D) clobetasol 0.05 % topical gel 1 applic topical .twice weekly 08/28/20 07/31/23 albuterol sulfate 90 mcg/actuation 2 puff inhalation Q4H PRN 10/22/21 07/31/23 aerosol inhaler (ProAir HFA) bronchospasm #8.5 grams omeprazole 20 mg tablet,delayed 20 mg PO .every other day #45 tabs 08/11/22 07/31/23 release Synthroid 88 mcg tablet 88 mcg PO DAILY #90 tabs 11/03/22 07/31/23 (levothyroxine) ibuprofen 600 mg tablet 600 mg PO TID PRN fever or pain 11/12/22 07/31/23 #30 tabs colestipol 1 gram tablet 2 g (2 x 1 gram) PO DAILY #60 tabs 01/12/23 07/31/23 hydrochlorothiazide 12.5 mg tablet 12.5 mg PO DAILY #90 tabs 05/25/23 07/31/23 magnesium 250 mg tablet 250 mg PO DAILY #10 tabs 07/31/23 Previous Rx's Medication Instructions Recorded albuterol sulfate 90 mcg/actuation 2 puff inhalation Q4H PRN 10/22/21 aerosol inhaler (ProAir HFA) bronchospasm #8.5 grams omeprazole 20 mg tablet,delayed 20 mg PO .every other day #45 tabs 08/11/22 release Synthroid 88 mcg tablet 88 mcg PO DAILY #90 tabs 11/03/22 (levothyroxine) ibuprofen 600 mg tablet 600 mg PO TID PRN fever or pain 11/12/22 #30 tabs colestipol 1 gram tablet 2 g (2 x 1 gram) PO DAILY #60 tabs 01/12/23 hydrochlorothiazide 12.5 mg tablet 12.5 mg PO DAILY #90 tabs 05/25/23 magnesium 250 mg tablet 250 mg PO DAILY #10 tabs 07/31/23 Allergies Allergy/AdvReac Type Severity Reaction Status Date / Time adhesive tape Allergy Unknown skin Verified 07/31/23 13:54 blisters atorvastatin AdvReac Intermediate muscles Verified 07/31/23 13:54 aches levothyroxine AdvReac Intermediate rapid Verified 07/31/23 13:54 heart rate rosuvastatin AdvReac Intermediate muscle Verified 07/31/23 13:54 aches losartan AdvReac Mild dizziness Verified 07/31/23 13:54 even at low dose oxycodone [From Tylox] AdvReac Unknown severe Verified 07/31/23 13:54 stomach cramping lisinopril Allergy Mild cough Uncoded 07/31/23 13:54 Generic Statins AdvReac Unknown severe Uncoded 07/31/23 13:54 stomach cramps/muscle aches/stiff joints General Stated Complaint: GenMedical ASHLEY: 3 Exam <SWETHA Barnes - Last Filed: 08/01/23 10:04> Narrative Exam Narrative: Alert and oriented 77-year-old female, no acute distress, pupils equal round reactive to light and accommodation, lungs clear to auscultation bilaterally without respiratory distress, cardiac rate rhythm regular, no abdominal tenderness, rebound or guarding, no pallor, no calf swelling or tenderness appreciated, neurovascularly intact, alert and oriented x 4 Course <SWETHA Barnes - Last Filed: 08/01/23 10:04> Vital Signs Vital signs: Vital Signs Temperature 36.6 C 07/31/23 12:09 Pulse 89 07/31/23 12:09 Respiratory Rate 14 07/31/23 12:09 Blood Pressure 143/59 H 07/31/23 12:09 Pulse Oximetry 100 07/31/23 12:09 Temperature 36.6 C 07/31/23 12:26 Temperature Source Skin 07/31/23 12:26 Pulse 90 07/31/23 14:07 Pulse 73 07/31/23 12:50 Respiratory Rate 18 07/31/23 14:08 Respiratory Effort Normal, Non-Labored 07/31/23 14:08 Respiratory Depth Normal 07/31/23 14:08 Respiratory Pattern Normal 07/31/23 14:08 Blood Pressure 143/61 H 07/31/23 14:07 Blood Pressure Position Sitting 07/31/23 12:26 Pulse Oximetry 100 07/31/23 12:26 Oxygen Delivery Method Room Air 07/31/23 12:26 Oxygen Flow Rate 0 07/31/23 12:26 Pain Level 0 07/31/23 12:26 Lab/Test Results Lab/Test Results: Laboratory Tests Range/Units 07/31/23 07/31/23 07/31/23 13:08 13:08 13:08 WBC (4.4-10.8) 10^3/uL 8.04 RBC (3.93-5.22) 10^6/uL 4.73 Hgb (11.2-15.7) g/dL 14.2 Hct (36.0-46.0) % 43.4 MCV (80-95) fL 92 MCH (27.0-33.0) pg 30.0 MCHC (32.0-36.0) % 32.7 RDW (11.7-14.6) % 12.7 Plt Count (130-400) 10^3/uL 260 MPV (8.0-11.0) fL 9.7 Immature Gran % % 0.1 Neutrophils % % 66.1 Lymphocytes % % 26.2 Monocytes % % 6.1 Eosinophils % % 1.1 Basophils % % 0.4 Nucleated RBC % (0.0-0.3) % 0.0 Absolute Neutrophils (1.2-6.7) 10^3/uL 5.31 Absolute Lymphocytes (1.2-3.4) 10^3/uL 2.11 Absolute Monocytes (0.1-0.8) 10^3/uL 0.49 Absolute Eosinophils (0.0-0.7) 10^3/uL 0.09 Absolute Basophils (0.0-0.2) 10^3/uL 0.03 D-Dimer (<500) ng/mlFEU 1987 H Sodium (136-145) mmol/L 137 Potassium (3.5-5.1) mmol/L 3.5 Chloride (98-107) mmol/L 100 Carbon Dioxide (21.0-32.0) mmol/L 27.5 Anion Gap (3-11) mmol/L 9.5 BUN (7-18) mg/dL 17 Creatinine (0.55-1.02) mg/dL 1.0 Est GFR (CKD-EPI 2020) (mL/min/1.73m2) 58.02 Glucose (74-106) mg/dL 126 H Calcium (8.5-10.1) mg/dL 9.2 Magnesium (1.8-2.4) mg/dL 1.7 L Cancelled Total Bilirubin (0.2-1.0) mg/dL 0.3 AST (15-37) U/L 14 L ALT (14-59) U/L 23 Alkaline Phosphatase (46-116) U/L 101 Troponin I (< or =60) ng/L < 50 Cancelled Total Protein (6.4-8.2) g/dL 8.0 Albumin (3.4-5.0) g/dL 3.7 Lipase (16-77) U/L 23 TSH (0.36-3.74) uIU/mL Urine Color (Yellow) Urine Clarity (Clear) Urine pH (5-8) Ur Specific [place] (1.005-1.025) Urine Protein (Neg-Trace) mg/dL Urine Ketones (Negative) mg/dL Urine Blood (Negative) Urine Nitrite (Negative) Urine Bilirubin (Negative) Urine Urobilinogen (Up to 0.2) mg/dL Ur Leukocyte Esterase (Negative) Urine RBC (0-2) HPF Urine WBC (0-5) HPF Ur Epithelial Cells (Negative) HPF Urine Crystals (Negative) HPF Urine Bacteria (Negative) HPF Urine Casts (Negative) LPF Urine Mucus (Negative) Urine Other (Negative) Ur Culture Indicated? Urine Glucose (Negative) mg/dL Range/Units 07/31/23 07/31/23 13:08 14:10 WBC (4.4-10.8) 10^3/uL RBC (3.93-5.22) 10^6/uL Hgb (11.2-15.7) g/dL Hct (36.0-46.0) % MCV (80-95) fL MCH (27.0-33.0) pg MCHC (32.0-36.0) % RDW (11.7-14.6) % Plt Count (130-400) 10^3/uL MPV (8.0-11.0) fL Immature Gran % % Neutrophils % % Lymphocytes % % Monocytes % % Eosinophils % % Basophils % % Nucleated RBC % (0.0-0.3) % Absolute Neutrophils (1.2-6.7) 10^3/uL Absolute Lymphocytes (1.2-3.4) 10^3/uL Absolute Monocytes (0.1-0.8) 10^3/uL Absolute Eosinophils (0.0-0.7) 10^3/uL Absolute Basophils (0.0-0.2) 10^3/uL D-Dimer (<500) ng/mlFEU Sodium (136-145) mmol/L Potassium (3.5-5.1) mmol/L Chloride (98-107) mmol/L Carbon Dioxide (21.0-32.0) mmol/L Anion Gap (3-11) mmol/L BUN (7-18) mg/dL Creatinine (0.55-1.02) mg/dL Est GFR (CKD-EPI 2020) (mL/min/1.73m2) Glucose (74-106) mg/dL Calcium (8.5-10.1) mg/dL Magnesium (1.8-2.4) mg/dL Total Bilirubin (0.2-1.0) mg/dL AST (15-37) U/L ALT (14-59) U/L Alkaline Phosphatase (46-116) U/L Troponin I (< or =60) ng/L Total Protein (6.4-8.2) g/dL Albumin (3.4-5.0) g/dL Lipase (16-77) U/L Cancelled TSH (0.36-3.74) uIU/mL 0.82 Urine Color (Yellow) Yellow Urine Clarity (Clear) Clear Urine pH (5-8) 7.0 Ur Specific [place] (1.005-1.025) 1.015 Urine Protein (Neg-Trace) mg/dL Negative Urine Ketones (Negative) mg/dL Negative Urine Blood (Negative) Negative Urine Nitrite (Negative) Negative Urine Bilirubin (Negative) Negative Urine Urobilinogen (Up to 0.2) mg/dL 0.2 Ur Leukocyte Esterase (Negative) Small H Urine RBC (0-2) HPF 0-2 Urine WBC (0-5) HPF 3-5 Ur Epithelial Cells (Negative) HPF Moderate Urine Crystals (Negative) HPF Negative Urine Bacteria (Negative) HPF Rare Urine Casts (Negative) LPF Negative Urine Mucus (Negative) Negative Urine Other (Negative) Rare Renal Ur Culture Indicated? No/Sq. Contamination Urine Glucose (Negative) mg/dL Negative <Haleigh Falcon - Last Filed: 07/31/23 16:40> Please refer to my progress note Medical Decision Making <SWETHA Barnes - Last Filed: 08/01/23 10:04> Well-appearing 77-year-old female with negative orthostatics, no acute distress observed on telemetry without acute event, EKG with right bundle, no significant change from prior EKG interpreted at her doctor's office. Troponin and diagnostic labs do not show evidence of acute abnormality including normal thyroid and electrolytes. Secondary to history of factor V I did order a D- dimer for additional assessment, this was elevated at 1985, CTA was ordered to exclude pulmonary embolism and the result is pending at this time. Patient care will be transitioned to AE on the CTA written to go if negative for pulmonary embolism. Patient has remained stable throughout this encounter without any telemetry abnormalities noted. Quality:[facility] Health Related Social Needs: No Data to Display PFSH <SWETHA Barnes - Last Filed: 08/01/23 10:04> All Active Problems (Updated 07/31/23 @ 15:54 by SWETHA Barnes) Light-headed feeling (Acute) Palpitation (Acute) Short of breath on exertion (Acute) Weakness (Acute) Nail dystrophy (Acute) HTN (hypertension) (Chronic ~07/06/18) Rectocele (Acute ~08/19/11) Diverticulosis of large intestine without hemorrhage (Acute ~08/04/17) Spinal stenosis of lumbar region with neurogenic claudication (Acute ~08/04/17) Thoracogenic scoliosis of thoracic region (Acute ~08/04/17) Left thyroid nodule (Acute ~09/02/17) Seborrhea (Acute ~08/01/18) Spondylosis of lumbar region without myelopathy or radiculopathy (Acute ~09/07/18) Personal history of colonic polyps (Chronic ~11/18/18) Elevated lipoprotein(a) (Acute ~09/13/19) GERD (gastroesophageal reflux disease) (Chronic) Change in voice (Acute) Oropharyngeal mass (Acute) Hyperlipemia (Acute) Fatigue (Acute) Pre-syncope (Acute) Hypothyroidism (Chronic) Pain of finger of left hand (Acute) Screening for colon cancer (Acute) Medical History Abnormal mammogram of left breast (~08/18/18) Asthma Basal cell carcinoma (~08/01/18) Factor V Leiden Full incontinence of feces (~09/22/17) History of vertigo (~09/02/17) Lichen sclerosus Pill dysphagia (~11/18/18) Retention cyst of tonsil (~04/22/18) Surgical History H/O basal cell carcinoma excision (~1991) right arm 1992 left upper chest 12/2010 H/O colonoscopy (~2016) [facility] [place] 2016 [facility] 09/15/07 H/O rectocele repair (~09/26/11) H/O total hysterectomy with bilateral salpingo-oophorectomy (BSO) (~09/26/11) History of bilateral tubal ligation (~1976) History of cataract surgery History of esophagogastroduodenoscopy (EGD) (~01/10/19) Dr. Ferro History of surgical removal of ganglion cyst (~1994) Hx of biopsy (~2011) thyroid nodule Hx of cholecystectomy (~1967) Status post cervical polyp removal (~2011) 2004 and 2011 Family History Mother , 90'S Hyperlipidemia Hypertension Father , 70'5 Cancer Diabetes Hyperlipidemia Sister , 60'S Cancer Diabetes Brother Alcohol abuse Diabetes Hyperlipidemia Son No problems noted. Daughter Depression Maternal Grandfather , 90'S Alcohol abuse Paternal Grandfather , 90'S Heart disease Maternal Grandmother , 90'S No problems noted. Paternal Grandmother , 100'S No problems noted. Social History Smoking/Tobacco Use Status: Never Second Hand Exposure: Yes Smoking risk assessment performed?: Yes Alcohol Intake: current Alcohol Intake frequency: holidays/special occasions only Alcohol type: wine Drug use: Never Substance use type: does not use Caregiver/Support person: No Household members: spouse Housing: house Communication Needs: Hard of Hearing and Corrective Lenses Do you need help understanding health information?: Rarely Pets and animals: No Sexually active: No Do you think of yourself as: straight/heterosexual Current gender identity: female What is your relationship status?: How often do you talk on the phone with friends or family?: three or more times per week How often do you get together with friends or relatives?: twice per week How often do you attend yarsanism or congregational services?: 4 or more times per year Do you belong to any clubs or organized social groups?: no Panel score (0-1 are the most socially isolated patients): 3 What type of physical activity do you participate in: none and additional Details: PT for back Parul/Mosque: Lutheran Special parul needs: No Seatbelt use: always Helmet use: No Drive intox or ride w/intox wheelchair van driver: No Do you feel safe at home: Yes Do you feel safe in your relationship?: Yes Sign Out <SWETHA Barnes - Last Filed: 08/01/23 10:04> Sign Out Data: Sign Out Comment: pending cta interpretation and dispo Last updated by Serina Be PA at 07/31/23 15:53
--- NOTE | 2023-07-31 16:40 | W.EDPROG ---
Date of service: 07/31/23 Time of Service: 16:44 Medical Decision Making Handoff received from Serina Be, donovan SY. I did independently review patient's workup today. CBC, CMP, magnesium, serial troponins, TSH, lipase, and UA all reassuring today. CTA performed to rule out PE. Reviewed reviewed with Dr. Muniz, radiologist. No acute findings. Overall workup today very reassuring. Unclear etiology of episodic lightheadedness, weakness, and shortness of breath. Confirmed with patient that she does have close follow-up scheduled, including echo and Holter. She does have an annual exam scheduled later in the week with her PCP. Reviewed red flags indicating need for return to emergency care. She is agreeable with plan of care. Imaging Data Radiologic Study: Radiologist's impression: Exam(s) CT CHEST PE CTA EXAM: CT CHEST PE CTA CLINICAL HISTORY: hx of factor V, sob, elevated ddimer. TECHNIQUE: Imaging Protocol: CT angiography of the chest was performed using pulmonary embolus protocol. Multi planar reconstructions were performed. CONTRAST MATERIAL: Intravenous: Omnipaque 350 Contrast volume: 100 cc COMPARISON: No exams were available for comparison FINDINGS: CHEST: Severe scoliosis noted. PULMONARY ARTERIES: There are no intraluminal filling defects to suggest acute pulmonary emboli. LUNGS: There are no infiltrates nor evidence of pulmonary infarction.. There are no pleural effusions. MEDIASTINUM: There is no hilar nor mediastinal adenopathy. CARDIAC: Heart size upper normal. There is no pericardial effusion.Caliber of the thoracic aorta is within normal limits. No evidence of aortic dissection. There is no significant shift of the interventricular septum. PARTIALLY VISUALIZED UPPERMOST ABDOMEN: No obvious findings OSSEOUS: Severe scoliosis noted. No fractures. No significant osseous lesions evident.. IMPRESSION: 1. No evidence of acute pulmonary emboli. No evidence of pulmonary infarction.No pleural effusions. 2. No evidence of aortic dissection nor pericardial effusion. 3. Severe scoliosis. Fractures nor osseous lesions. Called by myself to ER provider. Quality:SDOH Health Related Social Needs: No Data to Display Sign Out Sign Out Data: Sign Out Comment: pending cta interpretation and dispo Last updated by Serina Be PA at 07/31/23 15:53 Discharge Plan Disposition Patient Disposition: Home Condition: Stable Discharge Details Clinical Impression: Palpitation, Light-headed feeling Primary Care Provider: Chacho Lion ED Provider: Haleigh Hook Home Meds and New Rx's Prescriptions: New magnesium 250 mg tablet 250 mg PO DAILY Qty: 10 0RF Continued omeprazole 20 mg tablet,delayed release (DR/EC) 20 mg PO .every other day Qty: 45 3RF fluocinonide 0.05 % cream 1 applic topical BID clobetasol 0.05 % gel 1 applic topical .twice weekly loperamide [Imodium A-D] 2 mg tablet 1 mg PO DAILY PRN aspirin 81 mg tablet,delayed release (DR/EC) 81 mg PO Q OTHER DAY albuterol sulfate [ProAir HFA] 90 mcg/actuation HFA aerosol inhaler 2 puff inhalation Q4H PRN (Reason: bronchospasm) Qty: 8.5 3RF Rx Instructions: every 4 to 6 hours levothyroxine [Synthroid] 88 mcg tablet 88 mcg PO DAILY Qty: 90 3RF ibuprofen 600 mg tablet 600 mg PO TID PRN (Reason: fever or pain) Qty: 30 3RF colestipol 1 gram tablet 2 g PO DAILY Qty: 60 12RF hydrochlorothiazide 12.5 mg tablet 12.5 mg PO DAILY Qty: 90 3RF Hold Instructions: Feeling weak and woozy. Holding trial until 05/05/22. Discharge Instructions Instructions: Heart Palpitations (ED) Additional Instructions: Recommend outpatient Holter monitor as your symptoms are worsening, talk to your doctor about ordering this outpatient Please follow-up for your echocardiogram that you have scheduled on Thursday Your tests today are reassuring At this time we have excluded more ominous causes of your symptoms, I recommend using caution while ambulating and refraining from working at height or doing any activities where you may injure yourself if you fall Return immediately should you develop new or worsening complaints Referrals: Chacho Lion, SUBCONTRACT ADMINISTRATOR [Primary Care Provider] -
--- NOTE | 2023-08-04 07:20 | NUR.NOTE ---
Accessed pt chart to reconcile EKG orders with EKG?s in [facility]. Nursing Note:
--- NOTE | 2023-08-09 07:05 | NUR.NOTE ---
Accessed chart this date to cancel an EKG order. Nursing Note:
== END 2023-07-31 17:06 | disposition home or self-care (01) ==
PROVIDERS: Physician Assistant; Emergency Provider Nurse Practitioner Family; PCP Nurse Practitioner Family
DX: R00.2 Palpitations (principal); R42 Dizziness and giddiness; D68.51 Activated protein C resistance; Z79.82 Long term (current) use of aspirin
CPT/HCPCS: 00123; 36415; 71275; 80053; 83690; 93005; 99285; 81003; 81015; 83735; 84443; 84484; 85025; 85379; 93010; 99284; J3490

== ENCOUNTER → 2023-08-04 03:15 | Outpatient (CLI) | payer MEDICARE, SELFPAY ==
--- NOTE | 2023-08-04 06:30 | DI.US_ITS ---
APPROVED REPORT EXAM: Comprehensive 2D, Doppler, and color-flow Echocardiogram Patient Location: Out-Patient Melt Helper: Bobbi Frias RDCS (AE) Indications: SOB on exertion, weakness Other Information Study Quality: Adequate Conclusion Normal left ventricular wall thickness and chamber size. Ejection fraction is 55 to 60%. Wall motio n is normal. Diastolic function is normal for age Normal right ventricular size and function Both atria are normal in size There are no structural valvular abnormalities Trace aortic regurgitation Trace tricuspid regurgitation. Estimated right ventricular systolic pressure is 22 mmHg Trace to mild mitral regurgitation Wall motion Left Ventricle The left ventricle is normal size. The left ventricular systolic function is normal. The left ventric ular ejection fraction is within the normal range. There is normal left ventricular wall thickness. T here is normal LV segmental wall motion. There is no ventricular septal defect visualized. LVEF is 56 %. Right Ventricle The right ventricle is normal size. The right ventricular systolic function is normal. Atria The left atrium size is normal. The right atrium size is normal. The interatrial septum is intact wit h no evidence for an atrial septal defect. Aortic Valve The aortic valve is normal in structure. Aortic valve is trileaflet. There is no aortic valvular sten osis. Trace aortic regurgitation. Mitral Valve The mitral valve is normal in structure. No evidence of mitral valve stenosis. Trace to mild mitral r egurgitation. Tricuspid Valve The tricuspid valve is normal in structure. There is no tricuspid valve stenosis. Trace tricuspid reg urgitation. The RVSP is 22.4_ mmHg. Pulmonic Valve The pulmonary valve is normal in structure. There is no pulmonic valvular stenosis. Trace to mild pul julián regurgitation. Great Vessels The aortic root is normal in size. The ascending aorta is normal Aortic arch is normal in caliber. IV C is normal in size and collapses >50% with inspiration. Pericardium There is no pericardial effusion. 2D Dimensions IVSD d PLAX 0.91 cm F: 0.6-1.0 Ao Root d 3.25 cm F: 2.7 - 3.3 LVPW d PLAX 0.94 cm F: 0.6 - 1.0 Ao Asc Diam d 3.34 cm F: 2.3 - 3.1 LVID d PLAX 4.52 cm F: 3.8 - 5.2 LVDs 3.23 cm F: 2.2 - 3.5 LV EF Teichholz 55.3 % FS 28.67 % LV EDV (Teich) 93.5 mL LV ESV (Teich) 41.8 mL M-Mode TAPSE 1.48 cm (M/F) >1.7 Auto EF LV EDV A4C 92.7 mL LV EDV A2C 106.2 mL LV EDV BP 100.1 mL LV ESV A4C 39.5 mL LV ESV A2C 47.9 mL LV ESV BP 43.7 mL LVEF(%) A4C 57.3 % LVEF(%) A2C 54.9 % LVEF(%) BP 56.4 % LV SV A4C 53.2 ml LV SV A2C 58.4 ml LV SV BP 56.4 ml LV CO A4C 2.8 L/min LV CO A2C 3.1 L/min LV CO BP 2.9 L/min HR A4C 51.86 BPM HR A2C 53.65 BPM LV EDV Index (BP) LA Volume LA Length A4C 5.0 cm LA Length A2C 5.2 cm LA Area A4C s 16.53 cm2 LA Area A2C s 18.91 cm2 LA Vol A4C A-L 45.98 mL LA Vol A2C A-L 58.45 mL LA Vol Biplane A-L 52.6 mL LA Vol/BSA A4C A-L LA Vol/BSA A2C A-L LA Vol/BSA BP A-L 29.9 mL/m2 LA Vol A4C MOD 42.8 mL LA Vol A2C MOD 54.2 mL LA Vol BP MOD 48.7 mL RA Volume RA Area A4C 10.2 cm2 RA ESV A4C (A-L) 21.0mL RA Vol/BSA A4C A-L RA Length A4C 4.2 cm RA ESV A4C (MOD) 19.3mL LV Diastology MV E' medial 0.077 (>0.07 m/s) MV E Vmax 0.48 (0.4-1.3 m/s) MV E/E' MED 6.28 (<14) MV A Vmax 0.75 (0.4-1.3 m/s) MV E' lateral 0.071 (>0.1 m/s) E/A Ratio 0.6 MV E/E' LAT 6.76 (<14) MV E' Average 0.074 m/s MV E/E'(average) 6.51 Aortic Valve AoV Vmax 0.94 m/s LVOT Vmax 0.77 m/s AoV Peak Grad 3.5 mmHg LVOT Peak Grad 2.4 mmHg AoV Area (Vmax) 2.53 cm2 LVOT VTI 0.194 m AoV VTI 0.255 m LVOT Mean Grad 1.3 mmHg AoV Mean Kirt. 0.70 m/s LVOT SV 59.44 mL AoV Mean Grad 2.2 mmHg LVOT Diam s 1.95 cm AoV Area (VTI) 2.34 cm2 Velocity Ratio 0.82 Mitral Valve MV DT 294 (160-240 msec) MV Vmax TIPS 0.78 m/s MV Mean Grad 0.9 (<2mmHg) MV VTI 0.325 m Pulmonary Valve PV Vmax 0.80 (0.5-1.5 m/s) RVOT Vmax 0.53 m/s PV Peak Grad 2.5 mmHg RVOT Peak Gr. 1.1 mmHg PV Mean Kirt 0.53 m/s RVOT VTI 0.148 m PV Mean Grad 1.3 mmHg RVOT Mean Gr. 0.7 mmHg Tricuspid Valve RA Pressure 3.00 mmHg TR Vmax 2.20 m/s TV S' 0.11 m/s TR Peak Grad 19.4 mmHg RVSP (TR) 22.4 mmHg
== END ==
PROVIDERS: PCP Nurse Practitioner Family; Visit Provider Nurse Practitioner Family
DX: R06.02 Shortness of breath (principal); R53.1 Weakness; I36.1 Nonrheumatic tricuspid (valve) insufficiency; I35.1 Nonrheumatic aortic (valve) insufficiency; I34.0 Nonrheumatic mitral (valve) insufficiency
CPT/HCPCS: 93306

== ENCOUNTER 2023-08-14 10:39 | Outpatient (RCR) | payer MEDICARE, SELFPAY ==
--- NOTE | 2023-08-14 10:45 | HOLTER_ITS ---
APPROVED REPORT Conclusion This is a 48-hour Holter monitor Rhythm throughout is sinus with an average heart rate of 72. Minimum was 57, maximum 110 There were a total of 7 isolated ventricular ectopic beats There were 5 premature atrial contractions There was no atrial fibrillation, no high-grade AV block, no pauses greater than 3 seconds No patient symptoms were reported
== END 2023-08-28 23:59 | disposition home or self-care (01) ==
LOC: CARDOPNVT 10:39
PROVIDERS: PCP Nurse Practitioner Family; Visit Provider Nurse Practitioner Family
DX: R00.2 Palpitations (principal); Z51.89 Encounter for other specified aftercare
CPT/HCPCS: 93227; 93225; 93226

== ENCOUNTER 2023-08-24 09:13 | Observation (INO) | payer MEDICARE, SELFPAY ==
[2023-08-24] VITALS (52 sets, daily range): BP systolic 126–165; BP diastolic 56–106; PULSE 57–85; RESP 11–30; TEMP 36.4–36.6; O2SAT 96–100
--- NOTE | 2023-08-24 09:00 | RT.EKG_ITS ---
APPROVED REPORT Exam: Resting ECG Reason for Exam: Chest Pain Patient Location: E HR:74 bpm ECG Measurements Heart Rate 74 AXIS WY 206 P 48 QRSd 136 QRS -21 QT 422 T 28 QTc 467 Conclusion Sinus rhythm...normal P axis, V-rate 60- 99 Right bundle branch block...QRSd>120, terminal axis(90,270) Left ventricular hypertrophy...multiple LVH criteria
--- NOTE | 2023-08-24 09:15 | DI.RAD_ITS ---
Exam(s) XR PORTABLE CHEST AP EXAM: XR PORTABLE CHEST AP CLINICAL HISTORY: chest pain TECHNIQUE: 2D digital imaging was performed. COMPARISON: CT CT CHEST PE CTA from 07/31/2023 FINDINGS: Exam is limited by leads coiled over the chest and under penetration. LUNGS: Grossly clear. The left lower lung field is obscured by the cardiac silhouette. No pleural a bnormality seen. HEART: Normal size. AORTA: Normal diameter. BONES: Severe scoliosis. Soft tissues: Unremarkable. IMPRESSION: No acute findings. DATA REPOSITORY: RADIATION DOSE DELIVERED:
[2023-08-24 10:03] LABS: Abs Immature Grans 0.02 10^3/uL (0.0-0.06); Absolute Basophil Count 0.03 10^3/uL (0.0-0.2); Absolute Eosinophil Count 0.05 10^3/uL (0.0-0.7); Absolute Lymphocyte Count 2.26 10^3/uL (1.2-3.4); Absolute Monocyte Count 0.57 10^3/uL (0.1-0.8); Absolute Neutrophil Count 4.64 10^3/uL (1.2-6.7); Basophils % 0.4 %; Eosinophils % 0.7 %; HCT 43.2 % (36.0-46.0); HGB 14.2 g/dL (11.2-15.7); Immature Grans % 0.3 %; Lymphocytes % 29.9 %; MCH 29.4 pg (27.0-33.0); MCHC 32.9 % (32.0-36.0); MCV 89 fL (80-95); MPV 10.2 fL (8.0-11.0); Monocytes % 7.5 %; Neutrophils % 61.2 %; Platelet Count 259 10^3/uL (130-400); RBC 4.83 10^6/uL (3.93-5.22); RDW 12.5 % (11.7-14.6); RDW-SD 41.1 fL; WBC 7.57 10^3/uL (4.4-10.8)
--- NOTE | 2023-08-24 10:11 | DI.VRAD_ITS ---
PROCEDURE INFORMATION: Exam: XR Chest Exam date and time: 08/24/2023 9:35 AM Age: 77 years old Clinical indication: Pain; Chest pressure TECHNIQUE: Imaging protocol: Radiologic exam of the chest. Views: 1 view. COMPARISON: 1. CT CHEST PE CTA 07/31/2023 3:26 PM 2. CR XR CHEST 2V PA LATERAL 06/04/2018 5:49 PM FINDINGS: Lungs: No focal infiltrates seen of the lungs. Pleural spaces: No large or obvious pneumothorax nor pleural effusion seen. Heart/Mediastinum: Heart size appears upper limits of normal. Bones/joints: Severe curvature spine, scoliosis. IMPRESSION: No acute findings seen of the chest. Dictated and Authenticated by: Landen Bo MD. Ordering:NIKI Mcgregor MD
[2023-08-24 10:14] LABS: PTT Activated 24.1 sec (23.6-32.8)
[2023-08-24 10:19] LABS: ALT 22 U/L (14-59); AST 14 U/L (15-37); Albumin 3.8 g/dL (3.4-5.0); Alkaline Phosphatase 104 U/L (46-116); Anion Gap 11.9 mmol/L (3-11); BUN 12 mg/dL (7-18); Bilirubin, Total 0.6 mg/dL (0.2-1.0); CO2 24.1 mmol/L (21.0-32.0); Calcium 9.5 mg/dL (8.5-10.1); Chloride 98 mmol/L (98-107); Estimated GFR 58.02 (mL/min/1.73m2); Glucose 103 mg/dL (74-106); Magnesium 1.8 mg/dL (1.8-2.4); Potassium 3.9 mmol/L (3.5-5.1); Sodium 134 mmol/L (136-145); Total Protein 8.1 g/dL (6.4-8.2); Troponin I < 50 ng/L (< or =60)
--- NOTE | 2023-08-24 10:45 | DI.CT_ITS ---
Exam(s) CT CHEST PE CTA EXAM: CT CHEST PE CTA CLINICAL HISTORY: chest pain. TECHNIQUE: Imaging Protocol: Axial CT angiography was performed with multi-slice acquisition and mu lti-planar reconstructions as well as axial, coronal and sagittal MIP reconstructions. CONTRAST MATERIAL: Intravenous: Omnipaque 350 Contrast volume:100 ml COMPARISON: CT CT CHEST PE CTA from 07/31/2023 CR,XR XR PORTABLE CHEST AP from 08/24/2023 FINDINGS: Pulmonary Arteries: No evidence of filling defect to suggest pulmonary emboli. Tracheobronchial tree: No mucous plugging. Mediastinum and Renae: No dominant adenopathy or fluid collection. Pulmonary parenchyma: Evaluation somewhat limited due to respiratory motion and expiratory changes. No consolidation or dominant measurable mass. Pleura: No effusion or pneumothorax. Heart: The heart is mildly dilated. No coronary artery calcifications are seen. Aorta: Thoracic aorta non-dilated. No dissection. Upper abdomen: No acute findings. Bones: Severe scoliosis. Tubes, Catheters, and Lines: None Soft tissues: Unremarkable. IMPRESSION: No evidence of pulmonary embolism or other acute abnormality in the chest. RADIATION DOSE DELIVERED: Total DLP DATA REPOSITORY: All CT scans at this facility are submitted to the National Radiology Data Registry (NRDR) Dose Index Registry (DIR) with the [employer] (A[employer]). RADIATION OPTIMIZATION: All CT scans at this facility use at least one of these dose optimization te chniques: automated exposure control; mA and/or kV adjustment per patient size (includes targeted exa ms where dose is matched to clinical indication); or iterative reconstruction.
--- NOTE | 2023-08-24 11:03 | ED.GENADUL_ITS ---
Discharge Plan Disposition Patient Disposition: Admit to [facility] Condition: Serious Condition: Improving Discharge Details Chief Complaint: Chest Pain Clinical Impression: Chest pain Admit Date/Time: 08/24/23 13:19 Admit Provider: Jameson Lombardo Attending Provider: Jameson Lombardo Primary Care Provider: Chacho Lion ED Provider: Balbir Sutton Discharge Instructions Activity:: Activity as Tolerated Equipment/Supplies:: No Equipment Needed Diet:: Normal Diet Discharge Orders Discharge Orders: Discharge Order (Routine); Ordered 08/25/23 Ordered By: Uri Tsai Discharge Data Discharge Date/Time-TO BE ENTERED AT DEPARTURE: 08/24/23 14:16 HPI General Date/Time Provider Initiated Documentation: 08/24/23 09:15 . Limitations to Documentation: no limitations . Information obtained by: patient . HPI Narrative: 77-year-old female with multiple medical problems including history of hypertension, hyperlipidemia, factor V Leiden, presents with chief complaint of chest pain. Patient notes substernal chest pain that started last night and has been intermittent since onset. Pain is described as a uncomfortable. Pain does radiate to her back. She has associated tingling in her fingers bilaterally and also in her lips and left face at times. She has associated shortness of breath it has been ongoing since prior to last ED visit earlier this month, she has generalized weakness and lightheadedness over the past 3 days, nausea, decreased appetite. Patient denies leg swelling. No fevers. Related Data Home Medications Medication Instructions Recorded Confirmed fluocinonide 0.05 % topical cream 1 applic topical BID 05/28/20 08/24/23 aspirin 81 mg tablet,delayed 81 mg PO Q OTHER DAY 06/19/20 08/24/23 release loperamide 2 mg tablet (Imodium 1 mg PO DAILY PRN 06/19/20 08/24/23 A-D) clobetasol 0.05 % topical gel 1 applic topical .twice weekly 08/28/20 08/24/23 albuterol sulfate 90 mcg/actuation 2 puff inhalation Q4H PRN 10/22/21 08/24/23 aerosol inhaler (ProAir HFA) bronchospasm #8.5 grams Synthroid 88 mcg tablet 88 mcg PO DAILY #90 tabs 11/03/22 08/24/23 (levothyroxine) ibuprofen 600 mg tablet 600 mg PO TID PRN fever or pain 11/12/22 08/24/23 #30 tabs colestipol 1 gram tablet 2 g (2 x 1 gram) PO DAILY #60 tabs 01/12/23 08/24/23 hydrochlorothiazide 12.5 mg tablet 12.5 mg PO DAILY #90 tabs 05/25/23 08/24/23 nitroglycerin 0.4 mg sublingual 0.4 mg sublingual Q5M PRN #30 tabs 08/25/23 tablet omeprazole 20 mg capsule,delayed 20 mg PO Q48H 08/25/23 08/25/23 release Previous Rx's Medication Instructions Recorded albuterol sulfate 90 mcg/actuation 2 puff inhalation Q4H PRN 10/22/21 aerosol inhaler (ProAir HFA) bronchospasm #8.5 grams Synthroid 88 mcg tablet 88 mcg PO DAILY #90 tabs 11/03/22 (levothyroxine) ibuprofen 600 mg tablet 600 mg PO TID PRN fever or pain 11/12/22 #30 tabs colestipol 1 gram tablet 2 g (2 x 1 gram) PO DAILY #60 tabs 01/12/23 hydrochlorothiazide 12.5 mg tablet 12.5 mg PO DAILY #90 tabs 05/25/23 nitroglycerin 0.4 mg sublingual 0.4 mg sublingual Q5M PRN #30 tabs 08/25/23 tablet Allergies Allergy/AdvReac Type Severity Reaction Status Date / Time adhesive tape Allergy Unknown skin Verified 08/24/23 09:24 blisters atorvastatin AdvReac Intermediate muscles Verified 08/24/23 09:24 aches levothyroxine AdvReac Intermediate rapid Verified 08/24/23 09:24 heart rate rosuvastatin AdvReac Intermediate muscle Verified 08/24/23 09:24 aches losartan AdvReac Mild dizziness Verified 08/24/23 09:24 even at low dose oxycodone [From Tylox] AdvReac Unknown severe Verified 08/24/23 09:24 stomach cramping lisinopril Allergy Mild cough Uncoded 08/24/23 09:24 Generic Statins AdvReac Unknown severe Uncoded 08/24/23 09:24 stomach cramps/muscle aches/stiff joints General Stated Complaint: Chest Pain ASHLEY: 3 Review of Systems All systems reviewed & are unremarkable except as noted in HPI and below Constitutional Constitutional: Reports fatigue, Denies fever(s), Reports lethargy and Reports weakness Cardiovascular Cardiovascular: Reports as per HPI, Reports chest pain, Reports dyspnea and Reports dyspnea on exertion Respiratory Respiratory: Reports as per HPI, Reports dyspnea and Reports dyspnea on exertion Gastrointestinal Gastrointestinal: Denies abdominal pain Neurologic Neurologic: Reports weakness Endocrine Endocrine: Reports fatigue Exam Const General: cooperative and no acute distress HENMT Mouth: moist mucous membranes Eyes Conjunctivae: normal conjunctivae Sclera: normal sclerae Neck Neck: trachea midline and supple Resp Auscultation: clear to auscultation bilaterally, no rales, no rhonchi and no wheezes Cardio Rate: regular rate and not tachycardic Rhythm: regular rhythm GI Palpation: soft, not firm, no guarding, no masses, not rigid and nontender Skin General skin exam: no rashes or lesions noted Neuro General: patient alert, patient awake and tone normal Extrem General: no calf tenderness and no edema Course Vital Signs Vital signs: Vital Signs Temperature 36.6 C 08/24/23 09:14 Pulse 74 08/24/23 09:14 Respiratory Rate 20 08/24/23 09:14 Blood Pressure 158/66 H 08/24/23 09:14 Pulse Oximetry 99 08/24/23 09:14 Temperature 36.6 C 08/24/23 09:14 Temperature Source Temporal Artery Scan 08/24/23 09:14 Pulse 76 08/24/23 10:41 Pulse 85 08/24/23 10:41 Respiratory Rate 30 H 08/24/23 10:41 Respiratory Effort Normal, Non-Labored 08/24/23 09:54 Respiratory Depth Normal 08/24/23 09:54 Respiratory Pattern Normal 08/24/23 09:54 Blood Pressure 152/79 H 08/24/23 10:41 Blood Pressure Mean 98 08/24/23 10:41 Blood Pressure Position Supine 08/24/23 09:14 Pulse Oximetry 100 08/24/23 10:40 Oxygen Delivery Method Room Air 08/24/23 09:14 Oxygen Flow Rate 0 08/24/23 09:14 Pain Level 4 08/24/23 09:14 Comment standing 08/24/23 10:41 Lab/Test Results Lab/Test Results: Laboratory Tests Range/Units 08/24/23 09:48 WBC (4.4-10.8) 10^3/uL 7.57 RBC (3.93-5.22) 10^6/uL 4.83 Hgb (11.2-15.7) g/dL 14.2 Hct (36.0-46.0) % 43.2 MCV (80-95) fL 89 MCH (27.0-33.0) pg 29.4 MCHC (32.0-36.0) % 32.9 RDW (11.7-14.6) % 12.5 Plt Count (130-400) 10^3/uL 259 MPV (8.0-11.0) fL 10.2 Immature Gran % % 0.3 Neutrophils % % 61.2 Lymphocytes % % 29.9 Monocytes % % 7.5 Eosinophils % % 0.7 Basophils % % 0.4 Nucleated RBC % (0.0-0.3) % 0.0 Absolute Neutrophils (1.2-6.7) 10^3/uL 4.64 Absolute Lymphocytes (1.2-3.4) 10^3/uL 2.26 Absolute Monocytes (0.1-0.8) 10^3/uL 0.57 Absolute Eosinophils (0.0-0.7) 10^3/uL 0.05 Absolute Basophils (0.0-0.2) 10^3/uL 0.03 APTT (23.6-32.8) sec 24.1 Sodium (136-145) mmol/L 134 L Potassium (3.5-5.1) mmol/L 3.9 Chloride (98-107) mmol/L 98 Carbon Dioxide (21.0-32.0) mmol/L 24.1 Anion Gap (3-11) mmol/L 11.9 H BUN (7-18) mg/dL 12 Creatinine (0.55-1.02) mg/dL 1.0 Est GFR (CKD-EPI 2020) (mL/min/1.73m2) 58.02 Glucose (74-106) mg/dL 103 Calcium (8.5-10.1) mg/dL 9.5 Magnesium (1.8-2.4) mg/dL 1.8 Total Bilirubin (0.2-1.0) mg/dL 0.6 AST (15-37) U/L 14 L ALT (14-59) U/L 22 Alkaline Phosphatase (46-116) U/L 104 Troponin I (< or =60) ng/L < 50 Total Protein (6.4-8.2) g/dL 8.1 Albumin (3.4-5.0) g/dL 3.8 Medical Decision Making 1108 --77-year-old female with history of hypertension, hyperlipidemia, factor V Leiden, here with chest discomfort that is been intermittent since last night, associated lightheadedness and generalized weakness over the past 3 days, associated shortness of breath and dyspnea on exertion that is been persistent since prior ED visit on 07/31/2023. Patient had CT of the chest which was nondiagnostic on 07/31/2023, as interpreted by radiology: 1. No evidence of acute pulmonary emboli. No evidence of pulmonary infarction.No pleural effusions. 2. No evidence of aortic dissection nor pericardial effusion. 3. Severe scoliosis. Fractures nor osseous lesions. Patient had cardiac echocardiogram on on 08/04/2023 that revealed EF of 55 to 60% with no wall motion abnormalities, normal left ventricular wall thickness. Concern for ACS. EKG was reviewed and interpreted by me: Please see report, sinus rhythm 74 bpm, right bundle branch block, LVH. Initial troponin negative. Plan to trend. Plan to obtain CT of the chest to assess for pulmonary embolism not seen on prior CT earlier this month. -- CT of the chest was interpreted by radiology: No evidence of pulmonary embolism or other acute abnormality in the chest. Delta troponin negative. Plan to hospitalize for rule out ACS given high risk. I spoke with the hospitalist, discussed ED presentation course including diagnostics, he will admit the patient. Lab Data Lab results reviewed: Yes I reviewed the patient's lab results. Labs: Laboratory Tests Range/Units 08/24/23 08/24/23 09:48 11:06 WBC (4.4-10.8) 10^3/uL 7.57 RBC (3.93-5.22) 10^6/uL 4.83 Hgb (11.2-15.7) g/dL 14.2 Hct (36.0-46.0) % 43.2 MCV (80-95) fL 89 MCH (27.0-33.0) pg 29.4 MCHC (32.0-36.0) % 32.9 RDW (11.7-14.6) % 12.5 Plt Count (130-400) 10^3/uL 259 MPV (8.0-11.0) fL 10.2 Immature Gran % % 0.3 Neutrophils % % 61.2 Lymphocytes % % 29.9 Monocytes % % 7.5 Eosinophils % % 0.7 Basophils % % 0.4 Nucleated RBC % (0.0-0.3) % 0.0 Absolute Neutrophils (1.2-6.7) 10^3/uL 4.64 Absolute Lymphocytes (1.2-3.4) 10^3/uL 2.26 Absolute Monocytes (0.1-0.8) 10^3/uL 0.57 Absolute Eosinophils (0.0-0.7) 10^3/uL 0.05 Absolute Basophils (0.0-0.2) 10^3/uL 0.03 APTT (23.6-32.8) sec 24.1 Sodium (136-145) mmol/L 134 L Potassium (3.5-5.1) mmol/L 3.9 Chloride (98-107) mmol/L 98 Carbon Dioxide (21.0-32.0) mmol/L 24.1 Anion Gap (3-11) mmol/L 11.9 H BUN (7-18) mg/dL 12 Creatinine (0.55-1.02) mg/dL 1.0 Est GFR (CKD-EPI 2020) (mL/min/1.73m2) 58.02 Glucose (74-106) mg/dL 103 Calcium (8.5-10.1) mg/dL 9.5 Magnesium (1.8-2.4) mg/dL 1.8 Total Bilirubin (0.2-1.0) mg/dL 0.6 AST (15-37) U/L 14 L ALT (14-59) U/L 22 Alkaline Phosphatase (46-116) U/L 104 Troponin I (< or =60) ng/L < 50 NT-Pro-B Natriuret Pep Cancelled Total Protein (6.4-8.2) g/dL 8.1 Albumin (3.4-5.0) g/dL 3.8 Quality:SDOH Health Related Social Needs: No Data to Display PFSH All Active Problems (Updated 09/03/23 @ 08:12 by Balbir Sutton MD) Chest pain (Acute) Change in bowel habit (Acute) Headache (Acute) Chest pain (Acute) Light-headed feeling (Acute) Palpitation (Acute) Short of breath on exertion (Acute) Weakness (Acute) Nail dystrophy (Acute) HTN (hypertension) (Chronic ~07/06/18) Rectocele (Acute ~08/19/11) Diverticulosis of large intestine without hemorrhage (Acute ~08/04/17) Spinal stenosis of lumbar region with neurogenic claudication (Acute ~08/04/17) Thoracogenic scoliosis of thoracic region (Acute ~08/04/17) Left thyroid nodule (Acute ~09/02/17) Seborrhea (Acute ~08/01/18) Spondylosis of lumbar region without myelopathy or radiculopathy (Acute ~09/07/18) Personal history of colonic polyps (Chronic ~11/18/18) Elevated lipoprotein(a) (Acute ~09/13/19) GERD (gastroesophageal reflux disease) (Chronic) Change in voice (Acute) Oropharyngeal mass (Acute) Hyperlipemia (Acute) Fatigue (Acute) Pre-syncope (Acute) Hypothyroidism (Chronic) Pain of finger of left hand (Acute) Screening for colon cancer (Acute) Medical History Factor V Leiden Lichen sclerosus Pill dysphagia (~11/18/18) Abnormal mammogram of left breast (~08/18/18) Retention cyst of tonsil (~04/22/18) Full incontinence of feces (~09/22/17) History of vertigo (~09/02/17) Basal cell carcinoma (~08/01/18) Asthma Surgical History History of cataract surgery H/O rectocele repair (~09/26/11) H/O total hysterectomy with bilateral salpingo-oophorectomy (BSO) (~09/26/11) History of surgical removal of ganglion cyst (~1994) H/O basal cell carcinoma excision (~1991) right arm 1992 left upper chest 12/2010 History of esophagogastroduodenoscopy (EGD) (~01/10/19) Dr. Ferro Hx of biopsy (~2011) thyroid nodule Status post cervical polyp removal (~2011) 2004 and 2011 H/O colonoscopy (~2017) [facility] [place] [facility] 09/15/07 Hx of cholecystectomy (~1967) History of bilateral tubal ligation (~1976) Family History Mother , 90'S Hyperlipidemia Hypertension Father , 70'5 Cancer Diabetes Hyperlipidemia Sister , 60'S Cancer Diabetes Brother Alcohol abuse Diabetes Hyperlipidemia Son No problems noted. Daughter Depression Maternal Grandfather , 90'S Alcohol abuse Paternal Grandfather , 90'S Heart disease Maternal Grandmother , 90'S No problems noted. Paternal Grandmother , 100'S No problems noted. Social History Smoking/Tobacco Use Status: Never Second Hand Exposure: Yes Smoking risk assessment performed?: Yes Alcohol Intake: current Alcohol Intake frequency: holidays/special occasions only Alcohol type: wine Drug use: Never Substance use type: does not use Caregiver/Support person: No Household members: spouse Housing: house Communication Needs: Hard of Hearing and Corrective Lenses Do you need help understanding health information?: Rarely Pets and animals: No Sexually active: No Do you think of yourself as: straight/heterosexual Current gender identity: female What is your relationship status?: How often do you talk on the phone with friends or family?: three or more times per week How often do you get together with friends or relatives?: twice per week How often do you attend confucianism or gnosticism services?: 4 or more times per year Do you belong to any clubs or organized social groups?: no Panel score (0-1 are the most socially isolated patients): 3 What type of physical activity do you participate in: none and additional Details: PT for back Parul/Roman Catholic: Rastafari Special parul needs: No Seatbelt use: always Helmet use: No Drive intox or ride w/intox professional driver: No Do you feel safe at home: Yes Do you feel safe in your relationship?: Yes POCUS Exam (ED) Limited Cardiac Exam DATE OF EXAM: 08/24/23 TIME OF EXAM: 10:00 PROVIDER THAT PERFORMED THE STUDY: Balbir Sutton IS THIS A REPEAT EXAM DURING THIS ENCOUNTER: no REASON FOR EXAM: Chest pain VISUALIZED STRUCTURES: Four Chambers, Left ventricle and Right ventricle VIEW OBTAINED: Parasternal long-axis PERTINENT FINDINGS/IMPRESSION: No apparent abnormalities; No pericardial effusion Exam complete
[2023-08-24 11:26] LABS: NT-proBNP 84 pg/mL (<300); TSH (W/Ref FT4) 1.76 uIU/mL (0.36-3.74)
[2023-08-24] MEDS: Omnipaque 350 MG/ML 100 ML BTL IJ (11:42)
[2023-08-24] MEDS: Normal Saline - Diluent 50 ML VIAL IJ (11:42)
--- NOTE | 2023-08-24 12:41 | DI.VRAD_ITS ---
PROCEDURE INFORMATION: Exam: CTA Chest With Contrast Exam date and time: 08/24/2023 11:43 AM Age: 77 years old Clinical indication: Chest wall pain; Patient HX: Chest pain TECHNIQUE: Imaging protocol: Computed tomographic angiography of the chest with contrast. Exam focused on the arteries. 3D rendering (Not supervised by radiologist): MIP and/or 3D reconstructed images were created by the technologist. Contrast material: OMNIPAQUE 350; Contrast volume: 100 ml; Contrast route: INTRAVENOUS (IV); COMPARISON: CT CHEST PE CTA 07/31/2023 3:26 PM FINDINGS: Pulmonary arteries: No evidence of pulmonary embolus to the segmental level. Aorta: No aneurysm of the aorta. No dissection of the aorta. Lungs: Unremarkable. No consolidation. No masses. Pleural spaces: Unremarkable. No pneumothorax. No pleural effusion. Heart: Unremarkable. No cardiomegaly. No pericardial effusion. Coronary arteries: Coronary artery calcifications may indicate coronary artery disease. Lymph nodes: Unremarkable. No enlarged lymph nodes. Bones/joints: Dextroscoliosis of the thoracic spine Soft tissues: Unremarkable. IMPRESSION: 1. No evidence of pulmonary embolus to the segmental level. 2. No aneurysm of the aorta. 3. No dissection of the aorta. Dictated and Authenticated by: Abel Neumann MD. Ordering:NIKI Mcgregor MD
--- NOTE | 2023-08-24 13:20 | HPE_ITS ---
Date of service: 08/24/23 Time of Service: 13:20 Assessment and Plan Assessment and plan (1) Chest pain: Status: Acute Assessment and plan: High risk with age, HTN, untreated HLD, and coagulopathy CTA reassuring again Admitted to observation on telemetry Cycle troponins to rule out acute VA, EKG and troponins not c/w ACS so far Continue ASA 81mg, she has not tolerated statin. Reassess lipids Stress test in am when available, needs MPI given [facility], Dr. Veronica patient (2) HTN (hypertension): Status: Chronic Assessment and plan: Continue home medications and routine monitoring Qualifiers: Hypertension type: essential hypertension Qualified Code(s): I10 - Essential (primary) hypertension (3) GERD (gastroesophageal reflux disease): Status: Chronic Assessment and plan: Continue omeprazole Qualifiers: Esophagitis presence: without esophagitis Qualified Code(s): K21.9 - Gastro-esophageal reflux disease without esophagitis (4) Hypothyroidism: Status: Chronic Assessment and plan: Continue Synthroid TSH 1.76 (5) Headache: Status: Acute Assessment and plan: some evolution of focal headaches and describing new pulsitile tinnitus. Benign neuro exam, but should consider MRI as outpatient. (6) DVT prophylaxis: Status: Acute Assessment and plan: lovenox History of Present Illness History of Present Illness Chief Complaint: chest pain Narrative: 77 yo F with history history of HTN, HLD, and factor V Leiden presenting with chest pain starting last night in the setting of increased fatigue and dyspnea on exertion over the past 2 months. The pain is a dull squeeze, on the right substernal area, radiating to her back. Comes and goes for a few seconds at at time. Sometimes associated with a shortness of breath and lightheadedness acutely, but as above this is in the setting of increased ALBERTO and lightheadedness over the past 2 months. Not increased with exertion. Goes away on it's own. No associated diaphoresis or nausea. She was seen in clinic 07/15 for ALBERTO, EKG and labs reassuring, had a CTA of chest 07/30, holter monitor 08/19, and echocardiogram 08/03 all of which were reassuring. She has had superficial phlebitis a/w Factor V Leiden but no h/o other thrombotic disease. Review of Systems All systems reviewed & are unremarkable except as noted in HPI and below Constitutional Constitutional: Reports headache(s) (chronic, but more frontal to left christianity in the past few weeks) Eyes Eyes: Denies loss of vision ENT Ears, Nose, Mouth, and Throat: Reports headache(s) (chronic, but more frontal to left christianity in the past few weeks), Denies hearing loss (no acute change), Denies nasal congestion and Reports tinnitus (chronic, but more pulsitile in the past 1-2 weeks) Respiratory Respiratory: Denies cough and Denies hemoptysis Gastrointestinal Gastrointestinal: Denies abdominal pain, Denies melena, Denies hematochezia, Reports loose stools (chronic, a little more loose lately) and Denies vomiting Neurologic Neurologic: Denies confusion, Reports headache(s) (chronic, but more frontal to left christianity in the past few weeks) and Denies loss of vision Psychiatric Psychiatric: Denies confusion PFSH All Active Problems (Updated 08/24/23 @ 15:36 by Jameson Lombardo) DVT prophylaxis (Acute) Headache (Acute) Chest pain (Acute) Light-headed feeling (Acute) Palpitation (Acute) Short of breath on exertion (Acute) Weakness (Acute) Nail dystrophy (Acute) HTN (hypertension) (Chronic ~07/06/18) Rectocele (Acute ~08/19/11) Diverticulosis of large intestine without hemorrhage (Acute ~08/04/17) Spinal stenosis of lumbar region with neurogenic claudication (Acute ~08/04/17) Thoracogenic scoliosis of thoracic region (Acute ~08/04/17) Left thyroid nodule (Acute ~09/02/17) Seborrhea (Acute ~08/01/18) Spondylosis of lumbar region without myelopathy or radiculopathy (Acute ~09/07/18) Personal history of colonic polyps (Chronic ~11/18/18) Elevated lipoprotein(a) (Acute ~09/13/19) GERD (gastroesophageal reflux disease) (Chronic) Change in voice (Acute) Oropharyngeal mass (Acute) Hyperlipemia (Acute) Fatigue (Acute) Pre-syncope (Acute) Hypothyroidism (Chronic) Pain of finger of left hand (Acute) Screening for colon cancer (Acute) Medical History Factor V Leiden Lichen sclerosus Pill dysphagia (~11/18/18) Abnormal mammogram of left breast (~08/18/18) Retention cyst of tonsil (~04/22/18) Full incontinence of feces (~09/22/17) History of vertigo (~09/02/17) Basal cell carcinoma (~08/01/18) Asthma Surgical History History of cataract surgery H/O rectocele repair (~09/26/11) H/O total hysterectomy with bilateral salpingo-oophorectomy (BSO) (~09/26/11) History of surgical removal of ganglion cyst (~1994) H/O basal cell carcinoma excision (~1991) right arm 1992 left upper chest 12/2010 History of esophagogastroduodenoscopy (EGD) (~01/10/19) Dr. Ferro Hx of biopsy (~2011) thyroid nodule Status post cervical polyp removal (~2011) 2004 and 2011 H/O colonoscopy (~2016) [facility] [place] [facility] 09/15/07 Hx of cholecystectomy (~1967) History of bilateral tubal ligation (~1976) Family History Mother , 90'S Hyperlipidemia Hypertension Father , 70'5 Cancer Diabetes Hyperlipidemia Sister , 60'S Cancer Diabetes Brother Alcohol abuse Diabetes Hyperlipidemia Son No problems noted. Daughter Depression Maternal Grandfather , 90'S Alcohol abuse Paternal Grandfather , 90'S Heart disease Maternal Grandmother , 90'S No problems noted. Paternal Grandmother , 100'S No problems noted. Social History Smoking/Tobacco Use Status: Never Second Hand Exposure: Yes Smoking risk assessment performed?: Yes Alcohol Intake: current Alcohol Intake frequency: holidays/special occasions only Alcohol type: wine Drug use: Never Substance use type: does not use Caregiver/Support person: No Household members: spouse Housing: house Communication Needs: Hard of Hearing and Corrective Lenses Do you need help understanding health information?: Rarely Pets and animals: No Sexually active: No Do you think of yourself as: straight/heterosexual Current gender identity: female What is your relationship status?: How often do you talk on the phone with friends or family?: three or more times per week How often do you get together with friends or relatives?: twice per week How often do you attend orthodoxy or zoroastrian services?: 4 or more times per year Do you belong to any clubs or organized social groups?: no Panel score (0-1 are the most socially isolated patients): 3 What type of physical activity do you participate in: none and additional Details: PT for back Parul/Scientology: Latter-Day Special parul needs: No Seatbelt use: always Helmet use: No Drive 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 Do you feel safe at home: Yes Do you feel safe in your relationship?: Yes Meds Allergies and Home Medications Allergies Allergy/AdvReac Type Severity Reaction Status Date / Time adhesive tape Allergy Unknown skin Verified 08/24/23 09:24 blisters atorvastatin AdvReac Intermediate muscles Verified 08/24/23 09:24 aches levothyroxine AdvReac Intermediate rapid Verified 08/24/23 09:24 heart rate rosuvastatin AdvReac Intermediate muscle Verified 08/24/23 09:24 aches losartan AdvReac Mild dizziness Verified 08/24/23 09:24 even at low dose oxycodone [From Tylox] AdvReac Unknown severe Verified 08/24/23 09:24 stomach cramping lisinopril Allergy Mild cough Uncoded 08/24/23 09:24 Generic Statins AdvReac Unknown severe Uncoded 08/24/23 09:24 stomach cramps/muscle aches/stiff joints Home Medications Medication Instructions Recorded Confirmed Type fluocinonide 0.05 % topical cream 1 applic topical BID 05/28/20 08/24/23 History aspirin 81 mg tablet,delayed 81 mg PO Q OTHER DAY 06/19/20 08/24/23 History release loperamide 2 mg tablet (Imodium 1 mg PO DAILY PRN 06/19/20 08/24/23 History A-D) clobetasol 0.05 % topical gel 1 applic topical .twice weekly 08/28/20 08/24/23 History albuterol sulfate 90 mcg/actuation 2 puff inhalation Q4H PRN 10/22/21 08/24/23 Rx aerosol inhaler (ProAir HFA) bronchospasm #8.5 grams Synthroid 88 mcg tablet 88 mcg PO DAILY #90 tabs 11/03/22 08/24/23 Rx (levothyroxine) ibuprofen 600 mg tablet 600 mg PO TID PRN fever or pain 11/12/22 08/24/23 Rx #30 tabs colestipol 1 gram tablet 2 g (2 x 1 gram) PO DAILY #60 tabs 01/12/23 08/24/23 Rx hydrochlorothiazide 12.5 mg tablet 12.5 mg PO DAILY #90 tabs 05/25/23 08/24/23 Rx magnesium 250 mg tablet 250 mg PO DAILY #10 tabs 07/31/23 08/24/23 Rx omeprazole 20 mg tablet,delayed 20 mg PO .every other day #45 tabs 08/07/23 08/24/23 Rx release Exam Narrative Exam Narrative: GEN: Alert and oriented x 4, pleasant and cooperative, gives linear history. No acute distress at rest. HEENT: Head atraumatic. Conjunctiva clear, no icterus. PEERL, EOMI. no rhinorrhea. MMM, OP benign. Neck is supple with no masses or lymphadenopathy, trachea midline LUNGS: CTAB with normal effort CV: RRR with no murmurs, gallops, or rubs. ABD: +BS, soft, NT/ND EXT: no cyanosis, clubbing, or edema MSK: No joint redness or swelling NEURO: CN 2-12 grossly intact. no nystagmus. Normal movement of 4 extremities. Normal speech and coordination. no tremor SKIN: No rashes or open wounds. PSYCH: normal mood and affect, normal thought process Results Imaging Chest x-ray: report reviewed (no acute findings) and image reviewed CT scan - chest: report reviewed (1. No evidence of pulmonary embolus to the segmental level. 2. No aneurysm of the aorta. 3. No dissection of the aorta. ) Additional studies: echo 08/04/23: Normal left ventricular wall thickness and chamber size. Ejection fraction is 55 to 60%. Wall motion is normal. Diastolic function is normal for age Normal right ventricular size and function Both atria are normal in size There are no structural valvular abnormalities Trace aortic regurgitation Trace tricuspid regurgitation. Estimated right ventricular systolic pressure is 22 mmHg Trace to mild mitral regurgitation EKG: report reviewed and image reviewed (RBBB, LVH, no STEMI, no significant changes from 07/31/23) Labs 08/24/23 09:48 08/24/23 09:48 Labs: Laboratory Results - last 24 hr 08/24/23 08/24/23 09:48 11:06 WBC 7.57 RBC 4.83 Hgb 14.2 Hct 43.2 MCV 89 MCH 29.4 MCHC 32.9 RDW 12.5 Plt Count 259 MPV 10.2 Immature Gran % 0.3 Neutrophils % 61.2 Lymphocytes % 29.9 Monocytes % 7.5 Eosinophils % 0.7 Basophils % 0.4 Nucleated RBC % 0.0 Absolute Neutrophils 4.64 Absolute Lymphocytes 2.26 Absolute Monocytes 0.57 Absolute Eosinophils 0.05 Absolute Basophils 0.03 APTT 24.1 Sodium 134 L Potassium 3.9 Chloride 98 Carbon Dioxide 24.1 Anion Gap 11.9 H BUN 12 Creatinine 1.0 Est GFR (CKD-EPI 2020) 58.02 Glucose 103 Calcium 9.5 Magnesium 1.8 Total Bilirubin 0.6 AST 14 L ALT 22 Alkaline Phosphatase 104 Troponin I < 50 NT-Pro-B Natriuret Pep 84 Cancelled Total Protein 8.1 Albumin 3.8 TSH 1.76 Last Vital Signs Temp 36.6 C 08/24/23 09:14 Pulse 63 08/24/23 12:16 Resp 14 08/24/23 12:20 BP 138/59 L 08/24/23 12:16 Pulse Ox 98 08/24/23 12:16 Time Spent Time spent with Patient: 55-74 minutes Time was spent: preparing to see the patient(eg.review tests), obtaining and/or reviewing separately otained hiistory, ordering medications,tests, procedures, referring, communicating with other health school child care attendant, indepentently interpreting results, counseling the patient and care coordination
[2023-08-24 13:24] LABS: Troponin I < 50 ng/L (< or =60)
[2023-08-24] MEDS: Enoxaparin 40 MG/0.4 ML SYR SC (16:42)
[2023-08-24 19:40] LABS: Calculated LDL 154 mg/dL (<100); Cholesterol 245 mg/dL (<200); HDL Cholesterol 72 mg/dL (40-60); Triglyceride 96 mg/dL (<150)
[2023-08-24 19:44] LABS: Troponin I < 50 ng/L (< or =60)
[2023-08-24] MEDS: Normal Saline Flush 10 ML SYR IVP (20:30)
[2023-08-25 00:07] VITALS: BP 117/65; PULSE 76; RESP 18; TEMP 36.3; O2SAT 96
[2023-08-25] MEDS: Levothyroxine 88 MCG TAB PO (06:20)
[2023-08-25] MEDS: Omeprazole 20 MG CAPCR PO (07:22)
[2023-08-25] MEDS: Normal Saline Flush 10 ML SYR IVP (07:23)
[2023-08-25 07:27] VITALS: BP 118/57; PULSE 58; RESP 17; TEMP 36.9; O2SAT 98
[2023-08-25] MEDS: Aspirin E.C. 81 MG TABEC PO (08:42)
[2023-08-25] MEDS: hydroCHLOROthiazide 12.5 MG TAB PO (08:42)
--- NOTE | 2023-08-25 09:21 | CCONE_ITS ---
Date of service: 08/25/23 Time of Service: 09:21 Assessment and Plan Assessment and plan (1) Chest pain: Status: Acute Assessment and plan: Patient's chest pain as described is very atypical and not suggestive of cardiac etiology. There is no evidence of an acute myocardial infarction. She is going to need an ischemic evaluation specifically pharmacologic myocardial perfusion imaging, as she is not able to exercise. I discussed with the patient and her that testing often is used to exclude a diagnosis or etiology, but does not always determine precisely what is going on. I would recommend outpatient MPI. If this is normal noncardiac etiologies of her symptoms should be pursued Qualifiers: Chest pain type: other chest pain Qualified Code(s): R07.89 - Other chest pain History of Present Illness History of Present Illness Chief Complaint: Chest pain Narrative: This is a 77-year-old woman who has a history of hypertension, ventricular ectopic beats, dyslipidemia. She has not been feeling well for several months describing exertional dyspnea, fatigue, episodes where she will feel weak and unable to continue and lightheadedness. Initially the lightheadedness was attributed to losartan, but removal of the medication did not resolve the issue. She has had some testing done. An echocardiogram showed preserved left ventricular systolic function, no valvular disease. She also had a Holter monitor which showed no dysrhythmias, normal heart rates. Presentation to the hospital was provoked by intermittent chest pain which occurred at rest was sporadic and lasted maybe 20 seconds. She had multiple episodes. She has been observed overnight. These episodes are no longer occurring. Her EKG showed a right bundle branch block. Cardiac enzymes have been normal Patient walks with a walker and has done so for quite some time. She has not been able to do much of anything around her house for weeks. She and her want to know what is causing her fatigue and weakness [facility] All Active Problems (Updated 08/25/23 @ 09:25 by Angelita Veronica MD) DVT prophylaxis (Acute) Headache (Acute) Chest pain (Acute) Light-headed feeling (Acute) Palpitation (Acute) Short of breath on exertion (Acute) Weakness (Acute) Nail dystrophy (Acute) HTN (hypertension) (Chronic ~07/06/18) Rectocele (Acute ~08/19/11) Diverticulosis of large intestine without hemorrhage (Acute ~08/04/17) Spinal stenosis of lumbar region with neurogenic claudication (Acute ~08/04/17) Thoracogenic scoliosis of thoracic region (Acute ~08/04/17) Left thyroid nodule (Acute ~09/02/17) Seborrhea (Acute ~08/01/18) Spondylosis of lumbar region without myelopathy or radiculopathy (Acute ~09/07/18) Personal history of colonic polyps (Chronic ~11/18/18) Elevated lipoprotein(a) (Acute ~09/13/19) GERD (gastroesophageal reflux disease) (Chronic) Change in voice (Acute) Oropharyngeal mass (Acute) Hyperlipemia (Acute) Fatigue (Acute) Pre-syncope (Acute) Hypothyroidism (Chronic) Pain of finger of left hand (Acute) Screening for colon cancer (Acute) Medical History Factor V Leiden Lichen sclerosus Pill dysphagia (~11/18/18) Abnormal mammogram of left breast (~08/18/18) Retention cyst of tonsil (~04/22/18) Full incontinence of feces (~09/22/17) History of vertigo (~09/02/17) Basal cell carcinoma (~08/01/18) Asthma Surgical History History of cataract surgery H/O rectocele repair (~09/26/11) H/O total hysterectomy with bilateral salpingo-oophorectomy (BSO) (~09/26/11) History of surgical removal of ganglion cyst (~1994) H/O basal cell carcinoma excision (~1991) right arm 1992 left upper chest 12/2010 History of esophagogastroduodenoscopy (EGD) (~01/10/19) Dr. Ferro Hx of biopsy (~2011) thyroid nodule Status post cervical polyp removal (~2011) 2004 and 2011 H/O colonoscopy (~2016) [facility] [place] [facility] [place]07 Hx of cholecystectomy (~1967) History of bilateral tubal ligation (~1976) Family History Mother , 90'S Hyperlipidemia Hypertension Father , 70'5 Cancer Diabetes Hyperlipidemia Sister , 60'S Cancer Diabetes Brother Alcohol abuse Diabetes Hyperlipidemia Son No problems noted. Daughter Depression Maternal Grandfather , 90'S Alcohol abuse Paternal Grandfather , 90'S Heart disease Maternal Grandmother , 90'S No problems noted. Paternal Grandmother , 100'S No problems noted. Social History Smoking/Tobacco Use Status: Never Second Hand Exposure: Yes Smoking risk assessment performed?: Yes Alcohol Intake: current Alcohol Intake frequency: holidays/special occasions only Alcohol type: wine Drug use: Never Substance use type: does not use Caregiver/Support person: No Household members: spouse Housing: house Communication Needs: Hard of Hearing and Corrective Lenses Do you need help understanding health information?: Rarely Pets and animals: No Sexually active: No Do you think of yourself as: straight/heterosexual Current gender identity: female What is your relationship status?: How often do you talk on the phone with friends or family?: three or more times per week How often do you get together with friends or relatives?: twice per week How often do you attend cheondoism or scientology services?: 4 or more times per year Do you belong to any clubs or organized social groups?: no Panel score (0-1 are the most socially isolated patients): 3 What type of physical activity do you participate in: none and additional Details: PT for back Parul/Yarsani: Bahai Special parul needs: No Seatbelt use: always Helmet use: No Drive intox 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 Do you feel safe at home: Yes Do you feel safe in your relationship?: Yes Exam Const Other: Overweight looks stated age no acute distress Neck Other: Neck veins are flat carotid pulsations are normal there are no bruits Resp Auscultation: clear to auscultation bilaterally Cardio Other: Heart is regular no murmur or gallop Skin Other: Warm and dry Extrem Other: No significant edema Results Last Vital Signs Temp 36.9 C 08/25/23 07:27 Pulse 58 L 08/25/23 07:27 Resp 17 08/25/23 07:27 BP 118/57 L 08/25/23 07:27 Pulse Ox 98 08/25/23 07:27 Labs 08/24/23 09:48 08/24/23 09:48 Labs: Laboratory Results - last 24 hr 08/24/23 08/24/23 08/24/23 09:48 11:06 13:00 WBC 7.57 RBC 4.83 Hgb 14.2 Hct 43.2 MCV 89 MCH 29.4 MCHC 32.9 RDW 12.5 Plt Count 259 MPV 10.2 Immature Gran % 0.3 Neutrophils % 61.2 Lymphocytes % 29.9 Monocytes % 7.5 Eosinophils % 0.7 Basophils % 0.4 Nucleated RBC % 0.0 Absolute Neutrophils 4.64 Absolute Lymphocytes 2.26 Absolute Monocytes 0.57 Absolute Eosinophils 0.05 Absolute Basophils 0.03 APTT 24.1 Sodium 134 L Potassium 3.9 Chloride 98 Carbon Dioxide 24.1 Anion Gap 11.9 H BUN 12 Creatinine 1.0 Est GFR (CKD-EPI 2020) 58.02 Glucose 103 Calcium 9.5 Magnesium 1.8 Total Bilirubin 0.6 AST 14 L ALT 22 Alkaline Phosphatase 104 Troponin I < 50 < 50 NT-Pro-B Natriuret Pep 84 Cancelled Total Protein 8.1 Albumin 3.8 Triglycerides Total Cholesterol LDL Cholesterol, Calc HDL Cholesterol TSH 1.76 08/24/23 08/24/23 18:48 18:58 WBC RBC Hgb Hct MCV MCH MCHC RDW Plt Count MPV Immature Gran % Neutrophils % Lymphocytes % Monocytes % Eosinophils % Basophils % Nucleated RBC % Absolute Neutrophils Absolute Lymphocytes Absolute Monocytes Absolute Eosinophils Absolute Basophils APTT Sodium Potassium Chloride Carbon Dioxide Anion Gap BUN Creatinine Est GFR (CKD-EPI 2020) Glucose Calcium Magnesium Total Bilirubin AST ALT Alkaline Phosphatase Troponin I < 50 NT-Pro-B Natriuret Pep Total Protein Albumin Triglycerides 96 Total Cholesterol 245 H LDL Cholesterol, Calc 154 H HDL Cholesterol 72 TSH
--- NOTE | 2023-08-25 11:40 | PDOC.CMIN ---
Date of service: 08/25/23 Time of Service: 11:40 Care Management Initial Assmt Initial Assessment Reason for Hospitalization: chest pain Functional Status/Living Situation Town of Residence: [place] Employment Status: Retired Advance Directives Advance Directives: Do you have an Advance Directive: Y 11/16/20 15:04 AD On File at [facility]: Y 05/22/23 10:19 Date Asked 05/22/23 05/22/23 10:19 AD Date Reviewed 08/24/23 08/24/23 09:16 COLST On File at [facility] No 07/19/22 13:33 COLST Date Scanned Code Status Resuscitation Status Full Code Insurance Coverage/Financial Issues Insurance: [place] [employer] Member: No Care Team Visit Care Team Role Provider Type Chacho Lion NP Primary Care Provider NURSE PRACTITIONER Balbir Sutton MD Emergency Provider [facility] STAFF PHYSICIAN Jameson Lombardo Admit Provider [facility] STAFF PHYSICIAN Attending Provider Discharge Potential Discharge Needs: Imaging/labs Anticipated Barriers to Discharge: Treatment delay Patient/Family Education Needs: Review discharge instructions, discuss Ask Me Three Transportation: Private vehicle Plan: Anticipate Josselin will be discharged home with no new services. She will follow up with her PCP and plan of care and transport with family. CM will follow and support discharge needs. PFSH All Active Problems (Updated 08/25/23 @ 09:25 by Angelita Veronica MD) DVT prophylaxis (Acute) Headache (Acute) Chest pain (Acute) Light-headed feeling (Acute) Palpitation (Acute) Short of breath on exertion (Acute) Weakness (Acute) Nail dystrophy (Acute) HTN (hypertension) (Chronic ~07/06/18) Rectocele (Acute ~08/19/11) Diverticulosis of large intestine without hemorrhage (Acute ~08/04/17) Spinal stenosis of lumbar region with neurogenic claudication (Acute ~08/04/17) Thoracogenic scoliosis of thoracic region (Acute ~08/04/17) Left thyroid nodule (Acute ~09/02/17) Seborrhea (Acute ~08/01/18) Spondylosis of lumbar region without myelopathy or radiculopathy (Acute ~09/07/18) Personal history of colonic polyps (Chronic ~11/18/18) Elevated lipoprotein(a) (Acute ~09/13/19) GERD (gastroesophageal reflux disease) (Chronic) Change in voice (Acute) Oropharyngeal mass (Acute) Hyperlipemia (Acute) Fatigue (Acute) Pre-syncope (Acute) Hypothyroidism (Chronic) Pain of finger of left hand (Acute) Screening for colon cancer (Acute) Medical History Factor V Leiden Lichen sclerosus Pill dysphagia (~11/18/18) Abnormal mammogram of left breast (~08/18/18) Retention cyst of tonsil (~04/22/18) Full incontinence of feces (~09/22/17) History of vertigo (~09/02/17) Basal cell carcinoma (~08/01/18) Asthma Surgical History History of cataract surgery H/O rectocele repair (~09/26/11) H/O total hysterectomy with bilateral salpingo-oophorectomy (BSO) (~09/26/11) History of surgical removal of ganglion cyst (~1994) H/O basal cell carcinoma excision (~1991) right arm 1992 left upper chest 12/2010 History of esophagogastroduodenoscopy (EGD) (~01/10/19) Dr. Ferro Hx of biopsy (~2011) thyroid nodule Status post cervical polyp removal (~2011) 2004 and 2011 H/O colonoscopy (~2016) [facility] [place] 2016 [facility] 09/15/07 Hx of cholecystectomy (~1967) History of bilateral tubal ligation (~1976) Family History Mother , 90'S Hyperlipidemia Hypertension Father , 70'5 Cancer Diabetes Hyperlipidemia Sister , 60'S Cancer Diabetes Brother Alcohol abuse Diabetes Hyperlipidemia Son No problems noted. Daughter Depression Maternal Grandfather , 90'S Alcohol abuse Paternal Grandfather , 90'S Heart disease Maternal Grandmother , 90'S No problems noted. Paternal Grandmother , 100'S No problems noted. Social History Smoking/Tobacco Use Status: Never Second Hand Exposure: Yes Smoking risk assessment performed?: Yes Alcohol Intake: current Alcohol Intake frequency: holidays/special occasions only Alcohol type: wine Drug use: Never Substance use type: does not use Caregiver/Support person: No Household members: spouse Housing: house Communication Needs: Hard of Hearing and Corrective Lenses Do you need help understanding health information?: Rarely Pets and animals: No Sexually active: No Do you think of yourself as: straight/heterosexual Current gender identity: female What is your relationship status?: How often do you talk on the phone with friends or family?: three or more times per week How often do you get together with friends or relatives?: twice per week How often do you attend christian or scientologist services?: 4 or more times per year Do you belong to any clubs or organized social groups?: no Panel score (0-1 are the most socially isolated patients): 3 What type of physical activity do you participate in: none and additional Details: PT for back Parul/Judaism: Islam Special parul needs: No Seatbelt use: always Helmet use: No Drive intox or ride w/intox flag car driver: No Do you feel safe at home: Yes Do you feel safe in your relationship?: Yes SDOH(Care Management) Screening Will the Patient Participate in the Screening?: Yes Do you worry about having a steady place to live?: no Problems where you live: no known problems In the past 12 months, have you had to go without electric, gas, oil or water in your home?: no Have you or anyone in your house had to go without enough food to eat?: no Has lack of transportation kept you from medical appointments or from doing things needed for daily living?: no Has anyone in your support network made you feel unsafe for any reason?: no
--- NOTE | 2023-08-25 11:47 | CHAPLAIN ---
Josselin was sitting up in the chair when I visited. She said she's waiting for test results, and so far everything is normal. She may be going home today, she said. Josselin had company with her.
--- NOTE | 2023-08-25 14:26 | W.PM.DS.N ---
Date of service: 08/25/23 Time of Service: 14:26 DS: Diagnosis Discharge Diagnosis (1) Chest pain: Status: Acute Discharge Plan Disposition Patient Disposition: Home Condition: Improving Discharge Details Reason For Visit: Chest Pain Admit Date/Time: 08/24/23 13:19 Admit Provider: Jameson Lombardo Attending Provider: Jameson Lombardo Primary Care Provider: Chacho Lion Hospital Course Hospital Course: 77-year-old female with history hypertension hyperlipidemia Leyden factor V mutation factor presented with atypical chest pain she has had exertional dyspnea for several weeks as well as symptoms of lightheadedness for last couple months not alleviated by discontinuation of her losartan. She has had no peripheral edema and on examination had no evidence of acute cardio or pulmonary disease. She was ruled out for acute [place] with negative troponin levels. Serial EKGs did not show any acute ischemic changes. She had recent CTA of her chest as well as Holter monitor and echocardiogram all of which were reassuring. She was seen by Dr. Veronica who felt that her symptoms were atypical chest pain but did recommend an ischemic workup because of her age and her other risk factors. Unfortunately we could not do a stress MPI while she was here. She cannot tolerate a treadmill because of her scoliosis of her back. We cannot get nuclear material to do a nuclear Ashleigh scan. Will schedule her for an outpatient stress MPI study and discharge her home with follow-up with her primary care provider in the next week. Prescription for nitroglycerin was written for her. She is advised if she has chest pain or pressure stop which she is doing lying down and alert somebody could be with her and she can try the nitroglycerin and see if this helps with the discomfort but she should monitor her blood pressure. For the time being we will withhold her hydrochlorothiazide until she is seen by her primary care provider. Home Meds and New Rx's Prescriptions: New nitroglycerin 0.4 mg tablet, sublingual 0.4 mg sublingual Q5M PRNQty: 30 0RF Rx Instructions: do not exceed 3 doses per episode Continued fluocinonide 0.05 % cream 1 applic topical BID clobetasol 0.05 % gel 1 applic topical .twice weekly loperamide [Imodium A-D] 2 mg tablet 1 mg PO DAILY PRN aspirin 81 mg tablet,delayed release (DR/EC) 81 mg PO Q OTHER DAY albuterol sulfate [ProAir HFA] 90 mcg/actuation HFA aerosol inhaler 2 puff inhalation Q4H PRN (Reason: bronchospasm) Qty: 8.5 3RF Rx Instructions: every 4 to 6 hours levothyroxine [Synthroid] 88 mcg tablet 88 mcg PO DAILY Qty: 90 3RF ibuprofen 600 mg tablet 600 mg PO TID PRN (Reason: fever or pain) Qty: 30 3RF colestipol 1 gram tablet 2 g PO DAILY Qty: 60 12RF omeprazole 20 mg capsule,delayed release(DR/EC) 20 mg PO Q48H Patient Comments: TAKE 1 CAPSULE BY MOUTH EVERY OTHER DAY Held hydrochlorothiazide 12.5 mg tablet 12.5 mg PO DAILY Qty: 90 3RF Hold Instructions: Resume on 08/31/23. Discharge Instructions Instructions: Nitroglycerin (By mouth), Chest Pain (DC), Lightheadedness (ED) Referrals: Chacho Lion BAR MACHINE OPERATOR [employer]ULTIPLE [employer]INDLE [Primary Care Provider] - 09/11/23 8:40 am () Activity:: Activity as Tolerated Equipment/Supplies:: No Equipment Needed Diet:: Normal Diet Discharge Orders Discharge Orders: Discharge Order (Routine); Ordered 08/25/23 Ordered By: Uri Tsai Other Ambulatory Orders: NM MPI rest & stress grp (Routine) Timeframe: 3 Days Facility: [facility] - Location: DIAGNOSTIC IMAGING DEPT Ordered By: Uri Tsai DS: Summary Time Spent with Patient providing and/or coordinating discharge services: Less than 30 minutes Specific discharge activities: Interview/exam of patient; review of discharge instructions, completion of prescriptions/discharge instructions; discussion w/ nursing and CM; documentation of hospital visit Status at Discharge Functional status at discharge: independent ambulation Overall status at discharge: patient is back to baseline Mental Status: mental status grossly normal Speech and Movement: speech and movement normal Mood: congruent mood Affect: normal affect Quality:SDOH Health Related Social Needs: No Data to Display Exam Narrative Exam Narrative: Josselin is sitting up in her bed, alert, oriented, no acute distress; denying any dizziness or dyspnea or CP Psych Mental Status: mental status grossly normal Speech and Movement: speech and movement normal Mood: congruent mood Affect: normal affect DS: Data Vitals/I&O Vitals and I&O: Vital Signs Temperature 36.9 C 08/25/23 07:27 Temperature Source Tympanic 05/28/24 07:27 Pulse 58 L 08/25/23 07:27 Pulse Rhythm Regular 08/25/23 10:19 Pulse 66 08/24/23 13:41 Respiratory Rate 17 08/25/23 07:27 Respiratory Effort Non-Labored, Short of Breath 08/25/23 10:19 Respiratory Depth Normal 08/25/23 10:19 Respiratory Pattern Normal 08/25/23 10:19 Blood Pressure 118/57 L 08/25/23 07:27 Blood Pressure Mean 125 08/24/23 13:40 Blood Pressure Position Supine 08/24/23 09:14 Pulse Oximetry 98 08/25/23 07:27 Oxygen Delivery Method Room Air 08/25/23 07:27 Oxygen Flow Rate 0 08/25/23 07:27 Pain Level 0 08/25/23 07:27 Comment standing 08/24/23 10:41 Intake & Output 08/24/23 08/25/23 08/25/23 23:59 11:59 23:59 Intake Total 120 / 120 Balance 120 / 120 Weight 80.3 kg 80.3 kg Intake: Oral 120 / 120 Other: Urine Appearance Clear Comment voided in toilet pt states she has voided multiple times today Voiding Methods Toilet Data Completed and Pending Labs on day of discharge: Labs from last 24 hours 08/24/23 08/24/23 18:58 18:48 Troponin I < 50 Triglycerides 96 Total Cholesterol 245 H LDL Cholesterol, Calc 154 H HDL Cholesterol 72 PFSH All Active Problems DVT prophylaxis (Acute) Headache (Acute) Chest pain (Acute) Light-headed feeling (Acute) Palpitation (Acute) Short of breath on exertion (Acute) Weakness (Acute) Nail dystrophy (Acute) HTN (hypertension) (Chronic ~07/06/18) Rectocele (Acute ~08/19/11) Diverticulosis of large intestine without hemorrhage (Acute ~08/04/17) Spinal stenosis of lumbar region with neurogenic claudication (Acute ~08/04/17) Thoracogenic scoliosis of thoracic region (Acute ~08/04/17) Left thyroid nodule (Acute ~09/02/17) Seborrhea (Acute ~08/01/18) Spondylosis of lumbar region without myelopathy or radiculopathy (Acute ~09/07/18) Personal history of colonic polyps (Chronic ~11/18/18) Elevated lipoprotein(a) (Acute ~09/13/19) GERD (gastroesophageal reflux disease) (Chronic) Change in voice (Acute) Oropharyngeal mass (Acute) Hyperlipemia (Acute) Fatigue (Acute) Pre-syncope (Acute) Hypothyroidism (Chronic) Pain of finger of left hand (Acute) Screening for colon cancer (Acute) Medical History Factor V Leiden Lichen sclerosus Pill dysphagia (~11/18/18) Abnormal mammogram of left breast (~08/18/18) Retention cyst of tonsil (~04/22/18) Full incontinence of feces (~09/22/17) History of vertigo (~09/02/17) Basal cell carcinoma (~08/01/18) Asthma Surgical History History of cataract surgery H/O rectocele repair (~09/26/11) H/O total hysterectomy with bilateral salpingo-oophorectomy (BSO) (~09/26/11) History of surgical removal of ganglion cyst (~1994) H/O basal cell carcinoma excision (~1991) right arm 1992 left upper chest 12/2010 History of esophagogastroduodenoscopy (EGD) (~01/10/19) Dr. Ferro Hx of biopsy (~2011) thyroid nodule Status post cervical polyp removal (~2011) 2004 and 2011 [place]/O colon[place] ([place]2016[place] [facility] [place] [facility] [place] Hx of cholecystectomy (~1967) History of bilateral tubal ligation (~1976) Family History Mother , 90'S Hyperlipidemia Hypertension Father , 70'5 Cancer Diabetes Hyperlipidemia Sister , 60'S Cancer Diabetes Brother Alcohol abuse Diabetes Hyperlipidemia Son No problems noted. Daughter Depression Maternal Grandfather , 90'S Alcohol abuse Paternal Grandfather , 90'S Heart disease Maternal Grandmother , 90'S No problems noted. Paternal Grandmother , 100'S No problems noted. Social History Smoking/Tobacco Use Status: Never Second Hand Exposure: Yes Smoking risk assessment performed?: Yes Alcohol Intake: current Alcohol Intake frequency: holidays/special occasions only Alcohol type: wine Drug use: Never Substance use type: does not use Caregiver/Support person: No Household members: spouse Housing: house Communication Needs: Hard of Hearing and Corrective Lenses Do you need help understanding health information?: Rarely Pets and animals: No Sexually active: No Do you think of yourself as: straight/heterosexual Current gender identity: female What is your relationship status?: How often do you talk on the phone with friends or family?: three or more times per week How often do you get together with friends or relatives?: twice per week How often do you attend faith or baptist services?: 4 or more times per year Do you belong to any clubs or organized social groups?: no Panel score (0-1 are the most socially isolated patients): 3 What type of physical activity do you participate in: none and additional Details: PT for back Parul/Oriental Orthodox: Moravian Special parul needs: No Seatbelt use: always Helmet use: No Drive intox or ride w/intox pick up driver: No Do you feel safe at home: Yes Do you feel safe in your relationship?: Yes Time Spent with Patient Time Spent with Patient: <45 minutes Time was spent: preparing to see the patient(eg.review tests), ordering medications,tests, procedures, referring, communicating with other health director of career services, indepentently interpreting results, counseling the patient and care coordination
--- NOTE | 2023-08-25 17:31 | PDOC.CMPRO ---
Date of service: 08/25/23 Time of Service: 17:32 Care Management Progress Note Progress Note Text Progress Note Text: Josselin was admitted on 08/24/23 with chest pain. Her troponins and EKG were not consistent with ACS and her pain improved. An MPI stress test was ordered however could not be done at this time. She will be discharged home with outpatient follow up for the stress test.josselin was discharged before CM was able to meet with her. Discharge Potential Discharge Needs: Imaging/labs (MPI stress test) and PCP F/U Appt Anticipated Barriers to Discharge: None Identified Patient/Family Education Needs: Review discharge instructions, discuss Ask Me Three Transportation: Private vehicle Plan: Josselin will be discharged home and will be scheduled for an outpatient MPI stress test. She will follow up with her community providers and plan of care and transport with family. SDOH(Care Management) Screening Will the Patient Participate in the Screening?: Yes Do you worry about having a steady place to live?: no Problems where you live: no known problems In the past 12 months, have you had to go without electric, gas, oil or water in your home?: no Have you or anyone in your house had to go without enough food to eat?: no Has lack of transportation kept you from medical appointments or from doing things needed for daily living?: no Has anyone in your support network made you feel unsafe for any reason?: no
== END 2023-08-25 15:23 | disposition home or self-care (01) ==
LOC: ER 09:17 → MS 13:49
PROVIDERS: Admitting Provider Family Medicine; Emergency Provider Student in an Organized Health Care Education/Training Program; PCP Nurse Practitioner Family; Visit Provider Family Medicine
DX: R07.89 Other chest pain (principal); I10 Essential (primary) hypertension; R42 Dizziness and giddiness; K21.9 Gastro-esophageal reflux disease without esophagitis; E03.9 Hypothyroidism, unspecified; R51.9 Headache, unspecified; E78.5 Hyperlipidemia, unspecified; R06.02 Shortness of breath; R53.1 Weakness; K57.30 Diverticulosis of large intestine without perforation or abscess without bleeding; M41.34 Thoracogenic scoliosis, thoracic region; M47.896 Other spondylosis, lumbar region; D68.51 Activated protein C resistance
CPT/HCPCS: 00123; 36415; 71275; 80053; 80061; 93005; 93308; 96372; 99222; 99285; J1650; 71045; 83735; 83880; 84443; 84484; 85025; 85730; 93010; 99238; G0378; J3490

== ENCOUNTER → 2023-08-25 07:42 | Outpatient (BNVA) | payer MEDICARE, SELFPAY | PROVIDERS: PCP Nurse Practitioner Family; Referring Provider Nurse Practitioner Family; Visit Provider Internal Medicine Cardiovascular Disease ==

== ENCOUNTER → 2023-08-27 00:59 | Outpatient (CLI) | payer MEDICARE, SELFPAY ==
--- NOTE | 2023-08-27 07:00 | DI.NM_ITS ---
APPROVED REPORT Exam: Pharmacologic Patient Location: Out-Patient Room/Bed: Stress Nurse: Jerrica Tellez RN Ordering Provider:GHULAM PILLAI, Contact Number: BMI: 34.56 Baseline Rhythm: Sinus Rhythm Comment: 1st degree AV block, RBBB Indications: Chest pain, ALBERTO, Medical History Medical History: HLD, HTN, GERD, hypothyroidism, Factor V leiden, asthma, vertigo Cardiac Medications: Albuterol sulfate, aspirin, hydrochlorothiazide, nitro PRN, omeprazole, synthroi d Allergies: Adhesive tape, atorvastatin, levothyroxine, losartan, oxycodone, lisinopril, generic stati ns Cardiac Risk Factors: HTN, asthma, HLD, prediabetes Previous Cardiac Procedures: None Pretest Chest Pain Characteristics: None Exercise History: Sedentary Physical Disabilities: Generalized weakness Lung Sounds: Clear to auscultation Heart Sounds: Regular Stress Test Details Test: Pharmacologic stress testing performed using 0.4 mg of regadenoson per 5 mL given IV over 10 s econds. Reason for pharmacologic stress test: physical limitation. Nuclear Acquisition: Rest Tc-99m/Stress Tc-99m 1 day Rest Isotope: Tc-99m Sestamibi. Dose: 10.0 Date: 08/27/2023 Injection Time: 0900 Stress Isotope: Tc-99m Sestamibi. Dose: 30.0 Date: 08/27/2023 Injection Time: 1110 HR Resting HR Supine: 63 bpm Max Heart Rate (APMHR): 143.470876 bpm Target HR (85% APMHR): 121.241483 bpm Max HR Achieved: 90 bpm % of APMHR: 62.94 Recovery HR: 78 bpm BP Resting BP Supine: 140/70 mmHg Max BP: 176/80 mmHg Recovery BP: 118/66 mmHg ECG Resting ECG: Sinus Rhythm, 1st degree AV block, RBBB Ectopy: None Stress ECG: Sinus Rhythm, 1st degree AV block, RBBB ST Change: Nondiagnostic low heart rate Arrhythmia: None Recovery ECG: Sinus Rhythm, 1st degree AV block, RBBB Recovery ST Change: Nondiagnostic low heart rate Recovery Arrhythmia: None Clinical Stress Symptoms: Lightheadedness, SOB Angina Score: None Rate Pressure Product: [id number] Stress ECG Conclusion 1. Resting electrocardiogram showed right bundle branch block 2. Patient underwent testing using pharmacologic stress with regadenoson 3. Peak heart rate achieved was 63% of maximal for age 4. The electrocardiographic portion of the test was nondiagnostic 5. See MPI report Stress Test Summary STAGE HR BP SpO2 Symptoms NOTES Supine 63 140/70 96 Lightheadedness, mild SOB 1 min post Lexiscan injection 79 176/80 97 3 min post Lexiscan injection 85 138/70 98 6 min post Lexiscan injection 78 118/66 97 All symptoms resolved MPI Conclusion Myocardial perfusion is normal. There is no ischemia or evidence of prior infarction Ejection fraction is 83% with hyperdynamic wall motion Radiologist Interpretation Radiologist Interpretation by: Baldev Dupree MD Interpretation Date/Time: 08/27/2023 16:23:52
== END ==
PROVIDERS: PCP Nurse Practitioner Family; Visit Provider Internal Medicine
DX: R07.9 Chest pain, unspecified (principal)
CPT/HCPCS: 78452; 93016; 93018; 93017

== ENCOUNTER → 2023-09-23 00:41 | Outpatient (CLI) | payer MEDICARE, SELFPAY ==
--- NOTE | 2023-09-23 13:45 | DI.MRI_ITS ---
Exam(s) MR BRAIN WO EXAM: MR BRAIN WO CLINICAL HISTORY: frequent syncopal episodes,lightheaded feeling,[id number] TECHNIQUE: Multiplanar multisequence MRI of the brain was performed. COMPARISON: No exams were available for comparison FINDINGS: VENTRICLES AND EXTRA AXIAL SPACES: Normal in size and morphology for the patient's age. MIDLINE SHIFT: None. CEREBRAL PARENCHYMA: No focus of restricted diffusion to suggest acute infarct. No space-occupying le flaca identified. Mild atrophy consistent with the patient's age. No foci of high signal in the white matter. HEMORRHAGE: None. BRAINSTEM/CEREBELLUM: Normal. VISUALIZED PARANASAL SINUSES/MASTOIDS:Clear. Vasculature: Normal flow void. PITUITARY GLAND: Unremarkable. ORBITS: Unremarkable. IMPRESSION: Unremarkable MRI of the brain. DATA REPOSITORY:
== END ==
PROVIDERS: PCP Nurse Practitioner Family; Visit Provider Nurse Practitioner Family
DX: R42 Dizziness and giddiness (principal)
CPT/HCPCS: 70551

== ENCOUNTER → 2024-06-14 12:33 | Outpatient (BNVA) | payer MEDICARE, SELFPAY | PROVIDERS: PCP Nurse Practitioner Family; Referring Provider Registered Nurse Maternal Newborn; Visit Provider Psychiatry & Neurology Neurology | DX: R53.1 Weakness (principal); H93.A3 Pulsatile tinnitus, bilateral; I95.1 Orthostatic hypotension; R51.9 Headache, unspecified; G89.29 Other chronic pain | CPT/HCPCS: 99215; G2212 ==

== ENCOUNTER 2024-07-01 01:13 | Outpatient (CLI) | payer MEDICARE, SELFPAY ==
--- NOTE | 2024-07-01 10:16 | W.NUTRFU ---
Date of service: 07/01/24 Time of Service: 09:00 Nutrition Note NOTE: Met with Josselin and her , Xander for brief nutrition visit with recent questions/concerns about protein adequacy due to some related weakness. Josselin was great in bringing in her intake over multiple days on paper, which we reviewed. Estimated protein intake closer to 30 grams on many day - there were a few days where she seemed to hit the minimum amount of protein I would have her shoot for (~60grams per day with 100grams on the heavy end of the range). We reviewed protein sources and strategies for bumping up her protein intake to hit this minimum more days than not. She already does some strength training exercises online at home with . We discussed protein powders, quick recipes and related health topics/questions (how many eggs can I have? etc...) They took my card to contact with any further questions. Time Spent in Nutritional Counseling and Treatment: 25 min
== END 2024-07-01 01:14 | disposition home or self-care (01) ==
LOC: DS 01:13
PROVIDERS: PCP Nurse Practitioner Family; Visit Provider Dietitian, Registered
DX: R53.1 Weakness (principal)
CPT/HCPCS: 00123; 97802

== ENCOUNTER 2024-07-04 01:59 | Outpatient (CLI) | payer MEDICARE, SELFPAY ==
--- NOTE | 2024-07-04 07:45 | DI.MRI_ITS ---
Exam(s) MR ANGIO BRAIN WO CLINICAL HISTORY: pulsatile tinnitus,h93.a3,h93.a9. TECHNIQUE: 3D [id number] study was performed without contrast. COMPARISON: None. FINDINGS: Carotid Arteries: Petrous: Normal. Cavernous: Normal. Cerebral: Normal. Middle Cerebral Arteries: Right: No aneurysm or significant stenosis. Left: No aneurysm or significant stenosis. Anterior Cerebral Arteries: Right: No aneurysm or significant stenosis. Left: No aneurysm or significant stenosis. Posterior cerebral arteries: Right: No aneurysm or significant stenosis Left: No aneurysm or significant stenosis Vertebral Arteries: Right: No aneurysm or significant stenosis. No dissection. Left: No aneurysm or significant stenosis. No dissection.. Basilar Artery: No aneurysm or significant stenosis. Small Vessels: No evidence of beading. IMPRESSION: Normal MRA examination of the [place]. DATA REPOSITORY:
== END 2024-07-04 02:19 ==
PROVIDERS: PCP Nurse Practitioner Family; Visit Provider Psychiatry & Neurology Neurology
DX: H93.A3 Pulsatile tinnitus, bilateral (principal)
CPT/HCPCS: 70544

== ENCOUNTER → 2024-08-17 12:39 | Outpatient (BNVA) | payer MEDICARE, SELFPAY | PROVIDERS: PCP Nurse Practitioner Family; Referring Provider Nurse Practitioner Family; Visit Provider Psychiatry & Neurology Neurology | DX: R53.1 Weakness (principal); H93.A9 Pulsatile tinnitus, unspecified ear; I95.1 Orthostatic hypotension; R51.9 Headache, unspecified; G89.29 Other chronic pain; I10 Essential (primary) hypertension | CPT/HCPCS: 99215 ==

== ENCOUNTER 2024-08-26 00:56 | Outpatient (CLI) | payer MEDICARE, SELFPAY ==
[2024-08-26 10:15] LABS: Anion Gap 6.3 mmol/L (3-11); BUN 16 mg/dL (7-18); CO2 30.7 mmol/L (21.0-32.0); CREATININE 0.8 mg/dL (0.55-1.02); Calcium 9.1 mg/dL (8.5-10.1); Chloride 100 mmol/L (98-107); Estimated GFR 75.37 (mL/min/1.73m2); Glucose 94 mg/dL (74-106); Sodium 137 mmol/L (136-145)
[2024-08-26 10:29] LABS: Calculated LDL 155 mg/dL (<100); Cholesterol 251 mg/dL (<200); HDL Cholesterol 75 mg/dL (>or=50); TSH (W/Ref FT4) 1.71 uIU/mL (0.36-3.74); Triglyceride 109 mg/dL (<150)
[2024-08-26 10:51] LABS: Creatine Kinase 52 U/L (26-192)
== END 2024-08-26 00:57 | disposition home or self-care (01) ==
LOC: LBO 00:56
PROVIDERS: Psychiatry & Neurology Neurology; PCP Nurse Practitioner Family; Visit Provider Nurse Practitioner Family
DX: G70.9 Myoneural disorder, unspecified (principal); J99 Respiratory disorders in diseases classified elsewhere; R53.1 Weakness; E03.9 Hypothyroidism, unspecified; Z13.220 Encounter for screening for lipoid disorders
CPT/HCPCS: 36415; 80048; 80061; 82550; 83519; 84443

== ENCOUNTER → 2024-11-01 10:40 | Outpatient (BNVA) | payer MEDICARE, SELFPAY | PROVIDERS: PCP Nurse Practitioner Family; Visit Provider Psychiatry & Neurology Neurology | DX: H93.A9 Pulsatile tinnitus, unspecified ear (principal); I95.1 Orthostatic hypotension; R53.1 Weakness; R51.9 Headache, unspecified; G89.29 Other chronic pain; G70.00 Myasthenia gravis without (acute) exacerbation; I10 Essential (primary) hypertension; Z97.4 Presence of external hearing-aid | CPT/HCPCS: 99214 ==